=== PATIENT | male | born 1945 | race Caucasian/White ===

== ENCOUNTER → 2021-12-23 14:38 | Outpatient (BNVA) | payer OTHER, SELFPAY | PROVIDERS: Family Provider Family Medicine; PCP Family Medicine; Visit Provider Internal Medicine Pulmonary Disease | DX: J43.2 Centrilobular emphysema (principal); R91.1 Solitary pulmonary nodule; F17.210 Nicotine dependence, cigarettes, uncomplicated; Z71.6 Tobacco abuse counseling; E78.5 Hyperlipidemia, unspecified | CPT/HCPCS: 87635; 99214 ==

== ENCOUNTER 2021-12-25 07:23 | Outpatient (CLI) | payer OTHER, SELFPAY ==
--- NOTE | 2021-12-25 13:36 | PFTS_ITS ---
Date of Study:12/25/21 Date of Dictation: 12/26/2021 MECHANICS: Prebronchodilator forced vital capacity (FVC) is 4.14 L and 105%.. Prebronchodilator forced expiratory volume in one second (FEV1) is 2.93 L 100% predicted. FEV1/FVC is reduced 71.. FLOW VOLUME LOOP: normal . LUNG VOLUMES: Total lung capacity (TLC) is 6.82 L- 96% predicted. Residual volume (RV) is 2.93L 111%. DIFFUSING CAPACITY FOR CARBON MONOXIDE: Mildly reduced 66% predicted . INTERPRETATION: The prebronchodilator spirometry is consistent with mild obstruction. There is no postbronchodilator study to compare Lung volumes are normal.There is mildly reduced. Clinical correlation recommended MTDD
== END 2021-12-25 07:24 | disposition home or self-care (01) ==
LOC: RT 07:23
PROVIDERS: Family Provider Family Medicine; PCP Family Medicine; Visit Provider Internal Medicine Pulmonary Disease
DX: J44.9 Chronic obstructive pulmonary disease, unspecified (principal); R91.1 Solitary pulmonary nodule
CPT/HCPCS: 94010; 94618; 94726; 94729

== ENCOUNTER → 2022-03-26 14:23 | Outpatient (BNVA) | payer OTHER, SELFPAY | PROVIDERS: Family Provider Family Medicine; PCP Family Medicine; Visit Provider Internal Medicine Pulmonary Disease | DX: C34.90 Malignant neoplasm of unspecified part of unspecified bronchus or lung (principal); F17.210 Nicotine dependence, cigarettes, uncomplicated; J43.2 Centrilobular emphysema; R91.1 Solitary pulmonary nodule; Z71.6 Tobacco abuse counseling; E78.5 Hyperlipidemia, unspecified | CPT/HCPCS: 99214 ==

== ENCOUNTER 2022-04-02 09:25 | Oncology outpatient (recurring) (ONCR) | payer OTHER, SELFPAY ==
--- NOTE | 2022-04-02 10:26 | N.ONRAD NP_ITS ---
Radiation Oncology Consultation Patient Name: Brayan Wheeler Date of : 1945 Date of Service: 04/02/2022 Attending Physician: Ryder Valderrama M.D. Brayan Wheeler was seen in consultation this morning at the request of Shaw Gottlieb M.D. for consideration of thoracic radiotherapy in the management of a recently diagnosed non-small cell lung cancer. A screening thoracic CT scan in March 2021 revealed a left upper-lobe pleural-based nodule. Repeat imaging in July 2021 demonstrated an increase in the size of the nodule measuring 1.2 cm x 1 cm x 1 cm. A PET scan obtained confirmed the left upper lobe subpleural nodule with an SUV of 2.9. No metastatic disease was reported. He was referred to [facility] in [place], [place] for surgical management. A thoracic CT scan completed on February 13, 2022 described a 2.5 cm x 1.6 cm left upper-lobe nodule with an anterior mediastinal soft tissue lesion measuring 1 cm x 1.6 cm. A PET scan ordered on March 04, 2022 (requested from the outside hospital and independently reviewed in [facility]) reported a 2.7 cm x 1.9 cm left upper-lobe, pleural-based nodule (SUV 13.3), a 1.5 cm x 1.3 cm anterior mediastinum/prevascular node (SUV 14.7), and an aorticopulmonary lymph node measuring 1.3 cm x 0.8 cm (SUV 9.7). There was no systemic metastases. A thymectomy with laparoscopic, robotic-assisted lymph node dissection was performed by Sung Dave M.D. on March 07, 2022. The pathology report detailed a metastatic, poorly differentiated adenocarcinoma consistent with a lung primary obtained from three out of twelve anterior mediastinal lymph nodes. Extracapsular extension was identified. The pleural specimens did not identify malignancy. The patient was evaluated for definitive thoracic radiotherapy. I discussed with Mr. Wheeler the [place] [employer] Cancer Staging for lung cancer and specifically, the clinical stage IIIA (T1cN2) lung cancer corresponding to his disease. I also reviewed the National Comprehensive Cancer Network Guidelines recommending concurrent chemoradiotherapy for the management of locally advanced lung cancer established by the classic study, RTOG 9410, comparing sequential versus concurrent chemoradiotherapy that demonstrated an overall survival advantage for the concurrent chemoradiotherapy regimen. I would endorse a six week course of thoracic radiotherapy. Prior to treatment, I will order an MRI of the brain to complete staging. A computed tomographic radiotherapy planning scan with contrast in the treatment position will be acquired and co-registered to the patient's staging PET scan to identify the gross tumor volumes. The potential toxicities of thoracic radiotherapy were reviewed. The patient has verbalized understanding would like to proceed as recommended. The patient???s treatment plan was discussed with Shaw Gottlieb M.D. Signed by: Dr. Ryder Valderrama 04/15/2022 10:56:19 AM
== END 2022-04-03 23:59 | disposition home or self-care (01) ==
PROVIDERS: Family Provider Family Medicine; PCP Family Medicine; Visit Provider Radiology Radiation Oncology
DX: C34.12 Malignant neoplasm of upper lobe, left bronchus or lung (principal); C77.8 Secondary and unspecified malignant neoplasm of lymph nodes of multiple regions; F17.210 Nicotine dependence, cigarettes, uncomplicated; Z79.899 Other long term (current) drug therapy; I10 Essential (primary) hypertension
CPT/HCPCS: 99205

== ENCOUNTER → 2022-04-09 10:06 | Outpatient (BNVA) | payer OTHER, SELFPAY | PROVIDERS: PCP Family Medicine; Referring Provider Internal Medicine Hematology & Oncology; Visit Provider Surgery | DX: C34.10 Malignant neoplasm of upper lobe, unspecified bronchus or lung (principal) | CPT/HCPCS: 99203 ==

== ENCOUNTER 2022-04-15 08:13 | Day surgery (SDC) | payer OTHER, SELFPAY ==
[2022-04-14 11:47] VITALS: BMI 20.6
[2022-04-14 12:52] VITALS: BMI 20.6
[2022-04-15] VITALS (8 sets, daily range): BP systolic 146–180; BP diastolic 81–92; PULSE 59–76; RESP 15–20; TEMP 36.2–36.5; O2SAT 95–100
--- NOTE | 2022-04-15 | SCC_ITS ---
Procedure done: 1.? Placement of PowerPort via right subclavian vein 2.? Fluoroscopic guidance and interpretation for placement of catheter 26.4 seconds of fluoroscopic guidance, for a cumulative dose of 4.86 mGy, was provided to Dr. Cardozo by the radiology department. C-arm images of the chest were saved for the patient's permanent record. [facility]
--- NOTE | 2022-04-15 08:19 | SC_ITS ---
WS: [id number] C-ARM RADIOGRAPHS CHEST; 2 IMAGES HISTORY: PowerPort placement COMPARISON: None available. Intraoperative imaging during RIGHT subclavian PowerPort placement. Tip overlies the distal SVC. SC/C-arm FL for CVA [id number] IMPRESSION: Intraoperative imaging during RIGHT sided power port placement.
[2022-04-15] MEDS: sodium chloride 0.9% 1,000 ML 30 ML IV (09:00)
[2022-04-15 09:16] LABS: Basophils # 0.1 10^3/uL (0.0-0.1); Basophils % 0.8 %; Eosinophils # 0.4 10^3/uL (0.0-0.8); Eosinophils % 4.5 %; Hematocrit 51.2 % (42.0-52.0); Hemoglobin 16.3 g/dL (11.7-16.6); Lymphocytes # 1.5 10^3/uL (0.8-4.8); Mean Corpuscular HGB Conc 31.8 g/dL (30.0-36.0); Mean Corpuscular Hemoglobin 31.3 pg (28.0-34.0); Mean Corpuscular Volume 98.3 fl (80-94); Mean Platelet Volume 10.1 fL (7.4-10.4); Monocytes # 0.8 10^3/uL (0.2-0.9); Monocytes % 9.9 %; Neutrophils # 5.09 10^3/uL (1.8-7.7); Neutrophils % 65.4 %; Nucleated Red Blood Cells % 0 %; Platelet Count 283 10^3/cmm (130-400); Red Blood Count 5.21 10^6/uL (4.1-5.3); Red Cell Distribution Width 14.3 % (12.1-15.1); White Blood Count 7.8 10^3/uL (4.0-10.0)
[2022-04-15 09:35] LABS: Alanine Aminotransferase 17 U/L (0-41); Albumin Level 4.8 g/dL (3.5-5.2); Alkaline Phosphatase 90 IU/L (40-130); Anion Gap 16.6 (5-19); Aspartate Amino Transferase 16 U/L (0-40); Blood Urea Nitrogen 27 mg/dL (8-23); Calcium 9.5 mg/dL (8.5-10.5); Carbon Dioxide 26 mmol/L (22-29); Chloride 101 mmol/L (98-107); Globulin 3.5 g/dL (1.3-4.6); Glucose 96 mg/dL (65-115); Osmolality Calculated 293 mOsm/kg (285-295); Potassium 4.6 mmol/L (3.5-5.1); Sodium 139 mmol/L (136-145); Total Bilirubin 0.3 mg/dL (0.15-1.2); Total Protein 8.3 g/dL (6.6-8.7)
--- NOTE | 2022-04-15 11:30 | W.PM.OPSUD ---
Surgery/Procedure H&P Update DATE OF PROCEDURE: April 15, 2022 DATE H&P PERFORMED: 04/09/22 H&P UPDATE INFORMATION: I have reviewed H&P completed within last 30 days, I have examined patient prior to procedure and No changes to prior documentation PREOP DIAGNOSIS: Lung cancer PRIMARY INDICATION FOR PROCEDURE: The same PLANNED PROCEDURE: Operation Date: 04/15/22 10:00 Proposed Procedures p Portacath Placement 30882,C34.10(Not Applicable) - Jr Cardozo MD
[2022-04-15] MEDS: ceFAZolin 2,000 MG in sodium chloride 0.9% (plus) 50 ML 100 MG IV (11:48)
--- NOTE | 2022-04-15 11:56 | ANES.PREANE2 ---
Pre-Anesthetic Assessment Height/Weight: Height 1.8 m Weight 67.132 kg Temp Pulse Resp BP Pulse Ox 97.7 F 59 L 16 159/85 100 04/15/22 08:41 04/15/22 08:41 04/15/22 08:41 04/15/22 08:41 04/15/22 08:41 Preop Diagnosis: Lung cancer Operation Date: 04/15/22 10:00 Proposed Procedures p Portacath Placement 50641,C34.10(Not Applicable) - Jr Cardozo MD Familial anesthetic complications: None Was Beta Cathy taken within 24 hours: N/A Was Clonidine taken within 24 hours: N/A Last intake: Intake Last Liquid Date 04/14/22 Last Liquid Time 22:00 Last Solid Date 04/14/22 Last Solid Time 22:00 Social Tobacco and No alcohol Exam alert, oriented x 3 and regular rate & rhythm Airway Submandibular: within normal limits Cervical ROM: within normal limits Mallampati: Class II Dentition: false Pulmonary Chronic Obstructive Pulmonary Disease CV/HEM Hypertension Lung mass Anesthetic Plan ASA status: 3 Anesthesia: MAC Medications/Allergies Home Medications Medication Instructions Recorded Confirmed Last Taken Type ascorbate calcium (vitamin C) 500 1 g PO DAILY tab 04/02/22 04/15/22 04/14/22 History mg tablet cholecalciferol (vitamin D3) 125 125 mcg PO DAILY 04/02/22 04/15/22 04/14/22 History mcg (5,000 unit) capsule lisinopril 10 mg tablet 10 mg PO DAILY 04/02/22 04/15/22 04/14/22 History multivitamin 1 tab PO DAILY 04/02/22 04/15/22 04/14/22 History Allergies Allergy/AdvReac Type Severity Reaction Status Date / Time No Known Allergies Allergy Verified 04/15/22 08:33 [facility] Anesthesia Social History Smoking and tobacco status: current every day smoker cigarettes Packs smoked per day: 1 Years cigarettes smoked: 62 Alcohol intake: current Alcohol intake frequency: holidays/special occasions only Alcohol type: beer Data Anesthesia : 04/15/22 08:55 04/15/22 08:55 Short CBC 04/15/22 Range/Units 08:55 WBC 7.8 (4.0-10.0) 10^3/uL Hgb 16.3 (11.7-16.6) g/dL Hct 51.2 (42.0-52.0) % MCV 98.3 H (80-94) fl Plt Count 283 (130-400) 10^3/cmm Neut % (Auto) 65.4 % Neut # (Auto) 5.09 (1.8-7.7) 10^3/uL BMP 04/15/22 08:55 Sodium 139 Potassium 4.6 Chloride 101 Carbon Dioxide 26 BUN 27 H Creatinine 0.9 Glucose 96 Calcium 9.5 Liver Function 04/15/22 Range/Units 08:55 Total Bilirubin 0.3 (0.15-1.2) mg/dL AST 16 (0-40) U/L ALT 17 (0-41) U/L Alkaline Phosphatase 90 (40-130) IU/L Albumin 4.8 (3.5-5.2) g/dL Cardiac Studies: No Data to Display
[2022-04-15] MEDS: lidocaine 2% INJ 20 mL INJECTION (12:05)
[2022-04-15] MEDS: heparin, porcine 1,000 unit/mL INJ 10 mL 10000 UNIT XX (12:12)
--- NOTE | 2022-04-15 12:35 | P.OP_ITS ---
Operative Report Date of procedure: April 15, 2022 Pre-op diagnosis: Preop Diagnosis Lung cancer Post-op diagnosis: The same Procedure done: 1.? Placement of PowerPort via right subclavian vein 2.? Fluoroscopic guidance and interpretation for placement of catheter Surgeon: Jr Cardozo MD Plant Protection Superintendent: Rhiannon Thorpe Anesthesia: MAC (Gunnar Lopez) Estimated blood loss (mL): 5 Procedure: Patient was identified in the holding area and taken to the operative room and placed in supine position IV propofol was given by the anesthesia provider ,both arms were tucked,Time-out was done verifying the patient's name/date of /planned procedure and destination after the procedure, all were in agreement. SCDs confirmed to be functioning, preoperative antibiotics administered per protocol, and beta luna protocol was confirmed, appropriate positioning of the patient was done by me. Medications were reviewed to assess for anticoagulant usage. Risks and benefits and prevention of central line associated blood stream infection (CLABSI) were discussed with the patient/CPOA, and a consent was obtained. Monitors were in place and monitored throughout the procedure. All necessary supplies were available prior to start. Hand hygiene was completed prior to starting. Maximum barrier technique was utilized including a sterile gown, sterile gloves with a hat and mask. Site was was prepped with [chlorhexidine] and a full body drape was placed. 5 mL of 2% lidocaine was injected into the skin with a 25 gauge needle. Prep& drape was done under the usual sterile technique, lidocaine 2% was injected at the site of the stick, started by right sub-clavian vein stick that retrieved venous blood was obtained from the first stick, a guide wire was then threaded and under the guidance of fluoroscopy position was confirmed to be in the IVC and my interpretation, there were no PVC changes, at that point the guide wire was secured to the drapes with a hemostat and the needle was taken out, attention was then deviated towards creation of a pocket for the port were lidocaine 2% was injected using an 15 blade knife skin incision was created dissection using the Bovie to create a pocket for the Power Port to be accommodated. Hemostasis was secured, after the port being appropriately flushed it was inserted into the pocket and a tunneler was used to accommodate the catheter of the port catheter to be delivered through the incision first created at the site of the stick, at that point under fluoroscopy an estimated length was measured for the catheter and was cut at the designed level, followed by that a dilator with the sheath introduced onto the guide wire the dilator and the wire were retrieved and the catheter of the port was introduced via the sheath where it was peeled off and the catheter maintained to be in the SVC that was confirmed with fluoroscopy, and the fluoroscopy interpretation was done by me throughout the entire procedure. The port was kept in its pocket,3-0 Vicryl deep subdermal interrupted sutures, skin was then closed by 4-0 Monocryl as subcuticular closure.The port was appropriately flushed with heparin and venous blood was withdrawn without difficulty.The stick site was closed by 4-0 Monocryl and Dermabond was used foll owed by dressing.Count was correct at the end of the procedure.Patient tolerated the procedure well was taken to the recovery area. I was present for the whole entire procedure. Position of the catheter was checked with a postoperative chest x-ray and it was in good position without evidence of pneumothorax
--- NOTE | 2022-04-15 12:36 | XRR_ITS ---
PROCEDURE INFORMATION: Exam: XR Chest Exam date and time: 04/15/2022 12:58 PM Age: 76 years old Clinical indication: Other vascular access device placement or adjustment; Port; Additional info: Status post right subclavian vein powerport placement TECHNIQUE: Imaging protocol: Radiologic exam of the chest. Views: 1 view. COMPARISON: CT chest con [id number] 02/13/2022 12:43 PM FINDINGS: Tubes, catheters and devices: [id number]-[id number], new since the CT scan. Lungs: Possible left upper lobe peripheral 14 mm mass. Pleural spaces: Unremarkable. No pleural effusion. No pneumothorax. Heart/Mediastinum: Unremarkable. No cardiomegaly. Bones/joints: Unremarkable. Healed left rib fractures. XR/XR chest 1V portable [id number] IMPRESSION: No pneumothorax status post [id number]. Questionable peripheral left upper lobe mass.
--- NOTE | 2022-04-15 16:12 | ANE.PACU2 ---
Inpatient post-anesthesia follow up: Airway intact: Yes Vital signs: Temperature 97.7 F Pulse Rate 60 Respiratory Rate 18 Blood Pressure 180/87 Pulse Oximetry 99 Oxygen Delivery Me thod Room Air Oxygen Flow Rate Fraction of Inspir ed Oxygen Hydration adequate: Yes Nausea and vomiting: No Pain level: 2 Mental status: Baseline
== END 2022-04-15 13:52 | disposition home or self-care (01) ==
PROVIDERS: Radiology Radiation Oncology; PCP Family Medicine; Visit Provider Surgery
PROC: (CPT 36561; principal; 2022-04-15 09:50)
DX: C34.10 Malignant neoplasm of upper lobe, unspecified bronchus or lung (principal); J44.9 Chronic obstructive pulmonary disease, unspecified; I10 Essential (primary) hypertension; F17.210 Nicotine dependence, cigarettes, uncomplicated
CPT/HCPCS: 36561; 36415; 71045; 76000; 77001; 80053; 85025; C1788; J1644; J2704; J3490; J7030

== ENCOUNTER → 2022-04-21 08:20 | Outpatient (BNVA) | payer OTHER, SELFPAY | PROVIDERS: PCP Family Medicine; Visit Provider Nurse Practitioner Family | DX: Z51.0 Encounter for antineoplastic radiation therapy (principal); C34.10 Malignant neoplasm of upper lobe, unspecified bronchus or lung; R91.1 Solitary pulmonary nodule | CPT/HCPCS: 77386 ==

== ENCOUNTER → 2022-04-28 07:46 | Outpatient (BNVA) | payer OTHER, SELFPAY | PROVIDERS: PCP Family Medicine; Visit Provider Internal Medicine Hematology & Oncology | DX: Z51.0 Encounter for antineoplastic radiation therapy (principal); C34.12 Malignant neoplasm of upper lobe, left bronchus or lung; C77.8 Secondary and unspecified malignant neoplasm of lymph nodes of multiple regions; F17.210 Nicotine dependence, cigarettes, uncomplicated; Z79.899 Other long term (current) drug therapy | CPT/HCPCS: 77386; 99214 ==

== ENCOUNTER 2022-05-02 11:01 | Oncology outpatient (recurring) (ONCR) | payer OTHER, SELFPAY ==
--- NOTE | 2022-04-04 11:29 | MR_ITS ---
WS: [id number] MRI HEAD WITH CONTRAST TECHNIQUE: Sagittal T1, T2 axial, T2 axial FLAIR, axial susceptibility weighted imaging, axial diffus ion weighted images, and coronal T2 images were obtained. Pre and post-T1 axial and post T1 coronal i mages. ADC and FSPGR images. CLINICAL INFORMATION: LUNG CANCER STAGING COMPARISON: PET/CT March 01, 2022 FINDINGS: No evidence of restricted diffusion to suggest to suggest acute ischemia. Ventricular system and basa l cisterns are patent. Moderate small vessel changes. Moderate parenchymal volume loss. Small chronic cortical infarct in the LEFT frontal lobe with encephalomalacia and gliosis. Normal posterior fossa. Normal vascular flow voids at the skull base. No extra-axial fluid collections. No evidence of mass or mass effect. Chronic lacunar infarcts in the RIGHT periventricular white matter. Normal posterior nasopharynx. Mild mucosal thickening maxillary sinuses. Mastoid air cells well aerated. No hemosiderin on susceptibly weighted images. Normal optic chiasm and pituitary infundibulum. Modera te symmetric atrophy temporal lobes and hippocampal formations. Normal optic chiasm and pituitary inf undibulum. Normal cavernous sinuses and Meckel's cave. No abnormal gadolinium enhancement. No evidence of enhancing intracranial metastatic disease. Normal visualized dural venous sinuses. MR/MR head wo/w con [id number] IMPRESSION: 1. No evidence of enhancing intracranial metastatic disease. 2. No evidence of intracranial mass or mass effect. 3. No restricted diffusion to suggest acute ischemia. 4. Moderate small vessel changes with moderate parenchymal volume loss. 5. Mild mucosal thickening in the maxillary sinuses. 6. No other significant findings.
[2022-04-04] MEDS: gadobenate dimeglumine 20 mL vial IV (15:16)
--- NOTE | 2022-04-16 | CT_ITS ---
Radiation Therapy Planning CT images; total exam DLP: 371.08 mGy-cm MTDD
[2022-04-21 08:57] LABS: Basophils # 0.1 10^3/uL (0.0-0.1); Basophils % 0.6 %; Eosinophils # 0.3 10^3/uL (0.0-0.8); Eosinophils % 3.2 %; Hematocrit 45.3 % (42.0-52.0); Lymphocytes # 1.5 10^3/uL (0.8-4.8); Lymphocytes % 17.9 %; Mean Corpuscular HGB Conc 33.1 g/dL (30.0-36.0); Mean Corpuscular Hemoglobin 32.2 pg (28.0-34.0); Mean Corpuscular Volume 97.2 fl (80-94); Monocytes # 0.9 10^3/uL (0.2-0.9); Monocytes % 10.5 %; Neutrophils # 5.67 10^3/uL (1.8-7.7); Neutrophils % 67.4 %; Nucleated Red Blood Cells % 0 %; Platelet Count 281 10^3/cmm (130-400); Red Blood Count 4.66 10^6/uL (4.1-5.3); Red Cell Distribution Width 14.3 % (12.1-15.1); White Blood Count 8.4 10^3/uL (4.0-10.0)
[2022-04-21 09:18] LABS: Alanine Aminotransferase 15 U/L (0-41); Albumin Level 4.2 g/dL (3.5-5.2); Alkaline Phosphatase 79 IU/L (40-130); Anion Gap 11.1 (5-19); Aspartate Amino Transferase 14 U/L (0-40); Blood Urea Nitrogen 22 mg/dL (8-23); Calcium 9.5 mg/dL (8.5-10.5); Carbon Dioxide 28 mmol/L (22-29); Chloride 99 mmol/L (98-107); Globulin 2.7 g/dL (1.3-4.6); Glucose 105 mg/dL (65-115); Osmolality Calculated 280 mOsm/kg (285-295); Potassium 5.1 mmol/L (3.5-5.1); Sodium 133 mmol/L (136-145); Total Bilirubin 0.5 mg/dL (0.15-1.2); Total Protein 6.9 g/dL (6.6-8.7)
[2022-04-21] MEDS: sodium chloride 0.9% 250 ML 100 ML IV (11:34)
[2022-04-21] MEDS: acetaminophen 325 mg Tablet 650 MG PO (11:34)
[2022-04-21] MEDS: palonosetron 0.25 mg/5 mL SDV IVP (11:35)
[2022-04-21] MEDS: famotidine 20 mg/2 mL INJ IVP (11:37)
[2022-04-21] MEDS: diphenhydrAMINE 50 mg/mL SDV 1mL 25 MG IVP (11:38)
[2022-04-21] MEDS: dexamethasone 20 MG in sodium chloride 0.9% 50 ML 188 MG IV (11:43)
[2022-04-21] MEDS: CARBOplatin 190 MG in sodium chloride 0.9% 500 ML 519 MG IV (13:33)
[2022-04-21 14:47] VITALS: BP 145/76; PULSE 65; RESP 16; TEMP 36.8; O2SAT 92
--- NOTE | 2022-04-23 10:13 | US_ITS ---
WS: [id number] ULTRASOUND RIGHT BREAST, limited HISTORY: RIGHT BREAST NODULE W/NIPPLE RETRACTION COMPARISON: PET/CT 03/01/2022 TECHNIQUE: 2-D and Doppler. There is a hypoechoic mass just posterior to the nipple with irregular borders measuring 2.3 x 1.4 x 1.8 cm. Hypoechoic mass with increased vascularity and changes suspicious for gynecomastia. This lesi on was also positive on a recent PET/CT but thought to be related to gynecomastia as indicated within the body of the report. US/US breast RT limited* [id number] IMPRESSION: BI-RADS: 3-Probably Benign FOLLOW-UP: See Report 1. Hypoechoic mass posterior to the nipple is probably gynecomastia. FDG positi ve on recent PET/CT. Gynecomastia may be FDG positive. 2. Clinically if this does not correlate with gynecomastia ultrasound-guided bi opsy can be obtained. Also if this continues to increase in size ultrasound-michael ded biopsy can be obtained.
--- NOTE | 2022-04-23 11:42 | ONCRAD TMN_ITS ---
Radiation Oncology Weekly Treatment Management Patient: Liam Schmidt MR#: [id number] : 1945 Attending Physician: Dr. Basim John Date of Service: 04/23/2022 Referring Physician(s) : Diagnosis: C34.10 - Malignant neoplasm of upper lobe, unspecified bronchus or lung, Diagnosed 03/07/2022 (Active) Stage IIIA, T1c, N2, M0 Radiotherapy to date: Course: Lung 2021,Treatment Site: Lung Ca,Ref. ID: [id number],Energy: 6X,Dose/Fx (cGy): 200, #Fx: , Dose Correction (cGy): 0, Total Dose (cGy): 600, Start Date: 04/21/2022, , Elapsed Days: 2 Reason for visit: The patient is being seen today as part of their regularly scheduled weekly on treatment visits to assess for acute toxicities from radiotherapy. Review of Systems: Feels well. Tolerated his first course of chemotherapy without any troublesome side effects. No problems with the first 3 radiation treatments. His appetite is good. He has no dysphagia. No complaints regarding his breathing. No cough, hemoptysis, or sputum production. No new or unusual pain. No questions about the treatment process. He had an ultrasound of the right breast area today because of a lump. It was done a short time ago and we do not have results yet. If there is a problem that requires surgical evaluation, we will send him to the surgeon that put in his port. Vital Signs: Performed on 04/23/2022 11:19 AM BMI - 20.251 kg/m2, Height - 71 in, Weight - 145.2 lbs, Temperature - 96.7 f, Pulse - 73 /min, Respiration - 16 /min, O2 Sat - 100 %, Pain - 0, Fatigue - 1 and BP - 128/ 78 mm(hg). Physical Exam: Alert, oriented, no acute distress. Breathing is quiet and unlabored. Normal gait without assistance. Imaging: Radiation therapy imaging related to accurate target localization (i.e. KV, MV and CBCT) was reviewed. Appropriate changes, if any, were made to ensure treatment accuracy. Plan: Continue chemo RT as planned. We will let him know the results of his ultrasound. Signed by: Dr. Enzo John 04/23/2022 11:42:18 AM
--- NOTE | 2022-04-25 12:06 | ONCRAD TMN_ITS ---
Radiation Oncology Weekly Treatment Management Patient: Liam Schmidt> MR#: [id number] : 1945> Attending Physician: Dr. Enzo John Date of Service: 04/25/2022 Referring Physician(s) : Diagnosis: C34.10 - Malignant neoplasm of upper lobe, unspecified bronchus or lung, Diagnosed 03/07/2022 (Active) Stage IIIA, T1c, N2, M0 Radiotherapy to date: Course: Lung 2021, Treatment Site: Lung Ca, Ref. ID: [id number], Energy: 6X, Dose/Fx (cGy): 200, #Fx: , Dose Correction (cGy): 0, Total Dose (cGy): 1,000, Start Date: 04/21/2022, End Date: 04/25/2022, Elapsed Days: 4 Reason for visit: The patient is being seen today as part of their regularly scheduled weekly on treatment visits to assess for acute toxicities from radiotherapy. Mr. Wheeler had an ultrasound of the right breast because of the subareolar nodule that he recently palpated. The mass is asymptomatic. It did show up on PET/CT and was thought to be related to gynecomastia. The ultrasound shows a hypoechoic echoic mass posterior to the nipple with irregular borders measuring 2.3 x 1.4 x 1.8 cm. The mass has increased vascularity and the changes are suspicious for gynecomastia. Physical Exam: The left nipple, areola, and surrounding breast tissue are completely normal to palpation. No left axillary or supraclavicular lymphadenopathy. The right breast has slight elevation of its contour. No abnormality of the nipple or areola detected. Surrounding skin appears normal. Beneath the nipple there is an approximately 2 cm mass that is palpable. It is smooth, mobile, and nontender. On physical examination there is nothing suspicious about the mass. No right axillary or supraclavicular lymphadenopathy. Imaging: Radiation therapy imaging related to accurate target localization (i.e. KV, MV and CBCT) was reviewed. Appropriate changes, if any, were made to ensure treatment accuracy. Plan: I discussed with and Mrs. Smalls that a surgical consultation could be arranged. However, he and I agree that observation is appropriate. The area is easily evaluated and any change will be apparent. I told him not to palpate the area more than once every 2 weeks or that it is likely to get sore and possibly even swell. Signed by: Dr. Enzo John 04/25/2022 12:04:52 PM
[2022-04-28 08:22] LABS: Basophils % 0.5 %; Eosinophils # 0.2 10^3/uL (0.0-0.8); Hematocrit 45.6 % (42.0-52.0); Hemoglobin 14.9 g/dL (11.7-16.6); Lymphocytes # 0.8 10^3/uL (0.8-4.8); Lymphocytes % 12.7 %; Mean Corpuscular HGB Conc 32.7 g/dL (30.0-36.0); Mean Corpuscular Hemoglobin 31.5 pg (28.0-34.0); Mean Corpuscular Volume 96.4 fl (80-94); Monocytes # 0.5 10^3/uL (0.2-0.9); Monocytes % 8.5 %; Neutrophils # 4.42 10^3/uL (1.8-7.7); Neutrophils % 74.8 %; Nucleated Red Blood Cells % 0 %; Platelet Count 283 10^3/cmm (130-400); Red Blood Count 4.73 10^6/uL (4.1-5.3); Red Cell Distribution Width 14.1 % (12.1-15.1); White Blood Count 5.9 10^3/uL (4.0-10.0)
[2022-04-28 09:20] LABS: Alanine Aminotransferase 11 U/L (0-41); Albumin Level 4.4 g/dL (3.5-5.2); Alkaline Phosphatase 64 IU/L (40-130); Aspartate Amino Transferase 14 U/L (0-40); Blood Urea Nitrogen 19 mg/dL (8-23); Calcium 9.5 mg/dL (8.5-10.5); Carbon Dioxide 27 mmol/L (22-29); Chloride 98 mmol/L (98-107); Globulin 2.5 g/dL (1.3-4.6); Glucose 131 mg/dL (65-115); Osmolality Calculated 282 mOsm/kg (285-295); Sodium 134 mmol/L (136-145); Total Bilirubin 0.9 mg/dL (0.15-1.2); Total Protein 6.9 g/dL (6.6-8.7)
[2022-04-28] MEDS: sodium chloride 0.9% 250 ML 100 ML IV (10:51)
[2022-04-28] MEDS: acetaminophen 325 mg Tablet 650 MG PO (10:52)
[2022-04-28] MEDS: palonosetron 0.25 mg/5 mL SDV IVP (10:52)
[2022-04-28] MEDS: famotidine 20 mg/2 mL INJ IVP (10:53)
[2022-04-28] MEDS: diphenhydrAMINE 50 mg/mL SDV 1mL 25 MG IVP (10:56)
[2022-04-28] MEDS: dexamethasone 20 MG in sodium chloride 0.9% 50 ML 188 MG IV (11:42)
[2022-04-28] MEDS: CARBOplatin 210 MG in sodium chloride 0.9% 500 ML 521 MG IV (13:11)
[2022-04-28 14:46] VITALS: BP 195/90; PULSE 73; RESP 16; TEMP 36.6; O2SAT 97
[2022-04-29] MEDS: sodium chloride 0.9% 250 ML IV (13:47)
[2022-04-29] MEDS: lisinopril 20 mg Tablet PO (13:48)
[2022-04-29] MEDS: OLANZapine 5 mg ODT PO (13:48)
[2022-04-29] MEDS: dexamethasone 10 mg/mL INJ IVP (13:49)
[2022-04-29] MEDS: ondansetron 2 mg/ML SDV 2 mL 8 MG IVP (13:51)
[2022-04-29 14:05] VITALS: BP 206/103; PULSE 78; RESP 16; TEMP 36.3; O2SAT 97
[2022-04-29 15:15] VITALS: BP 203/90; PULSE 81; RESP 16; TEMP 36.5; O2SAT 96
--- NOTE | 2022-04-29 15:28 | PC.NURSE ---
Per Dr. Gottlieb, patient is to report to ER. Patient refuses, states he will go home and monitor BP and see how he feels. Advised patient as to Dr. Gottlieb instructions and told him to contact office if there was anything else we could do to assist.
--- NOTE | 2022-04-29 15:52 | ONCRAD TMN_ITS ---
Radiation Oncology Weekly Treatment Management Patient: Liam Schmidt MR#: [id number] : 1945 Attending Physician: Dr. Enzo John Date of Service: 04/29/2022 Referring Physician(s) : Diagnosis: C34.10 - Malignant neoplasm of upper lobe, unspecified bronchus or lung, Diagnosed 03/07/2022 (Active) Stage IIIA, T1c, N2, M0 Radiotherapy to date: Course: Lung 2021, Treatment Site: Lung Ca, Ref. ID: [id number], Energy: 6X, Dose/Fx (cGy): 200, #Fx: , Dose Correction (cGy): 0, Total Dose (cGy): 1,400, Start Date: 04/21/2022, Elapsed Days: 8 Reason for visit: The patient is being seen today as part of their regularly scheduled weekly on treatment visits to assess for acute toxicities from radiotherapy. Review of Systems: No problems with radiation. He had chemotherapy yesterday and had nausea and vomiting afterward. That has cleared but his blood pressure has been elevated. He was sent to the chemotherapy unit for further evaluation and that is where I saw him. He had no complaints and was feeling fine when I saw him. Vital Signs: Performed on 04/29/2022 1:08 PM BMI - 19.917 kg/m2, Height - 71 in, Weight - 142.8 lbs, Temperature - 97.7 f, Pulse - 81 /min, Respiration - 16 /min, O2 Sat - 96 % and BP - 203/ 90 mm(hg)(high/). Physical Exam: Neck supple without masses or lymphadenopathy. Lungs clear to percussion. On auscultation no rales rhonchi or wheezes. Heart rhythm was for the most part regular but he did have occasional irregular beats. He also had an occasional S4. No murmur. Because his blood pressure was remaining elevated, Dr. Gottlieb recommended that he go to the emergency room. The patient did not indicate he would go to the emergency room. The last time we checked, he had not checked into the emergency room. Imaging: Radiation therapy imaging related to accurate target localization (i.e. KV, MV and CBCT) was reviewed. Appropriate changes, if any, were made to ensure treatment accuracy. Plan: Continue RT per plan. Check blood pressure. Signed by: Dr. Enzo John 04/29/2022 3:50:18 PM
== END 2022-05-04 23:59 | disposition home or self-care (01) ==
PROVIDERS: Internal Medicine Medical Oncology; Nurse Practitioner Family; PCP Family Medicine; Visit Provider Specialist
DX: Z51.0 Encounter for antineoplastic radiation therapy (principal); C34.10 Malignant neoplasm of upper lobe, unspecified bronchus or lung
CPT/HCPCS: 70553; 76642; 77014; 77300; 77301; 77334; 77336; 77338; 77386; 77470; 80053; 85025; 96365; 96367; 96375; 96413; 96415; 96417; 99214; 99215; J1100; J1200; J2405; J2469; J3490; J7030; J7040; J7050; J9045; J9267; Q9967

== ENCOUNTER → 2022-05-14 10:23 | Outpatient (BNVA) | payer OTHER, SELFPAY | PROVIDERS: PCP Family Medicine; Visit Provider Surgery | DX: Z09 Encounter for follow-up examination after completed treatment for conditions other than malignant neoplasm (principal) | CPT/HCPCS: 99024 ==

== ENCOUNTER 2022-05-30 10:47 | Oncology outpatient (recurring) (ONCR) | payer OTHER, SELFPAY ==
[2022-05-05 08:38] LABS: Basophils % 0.4 %; Eosinophils # 0.1 10^3/uL (0.0-0.8); Eosinophils % 2.8 %; Hematocrit 41.4 % (42.0-52.0); Hemoglobin 13.6 g/dL (11.7-16.6); Lymphocytes # 0.5 10^3/uL (0.8-4.8); Lymphocytes % 10.6 %; Mean Corpuscular HGB Conc 32.9 g/dL (30.0-36.0); Mean Corpuscular Hemoglobin 31.6 pg (28.0-34.0); Mean Corpuscular Volume 96.3 fl (80-94); Mean Platelet Volume 10.2 fL (7.4-10.4); Monocytes # 0.4 10^3/uL (0.2-0.9); Monocytes % 9.3 %; Neutrophils % 76.5 %; Nucleated Red Blood Cells % 0 %; Platelet Count 206 10^3/cmm (130-400); Red Cell Distribution Width 13.9 % (12.1-15.1); White Blood Count 4.7 10^3/uL (4.0-10.0)
[2022-05-05 09:07] LABS: Alanine Aminotransferase 11 U/L (0-41); Albumin Level 3.8 g/dL (3.5-5.2); Alkaline Phosphatase 65 IU/L (40-130); Anion Gap 12.5 (5-19); Aspartate Amino Transferase 10 U/L (0-40); Blood Urea Nitrogen 24 mg/dL (8-23); Carbon Dioxide 26 mmol/L (22-29); Chloride 104 mmol/L (98-107); Globulin 2.7 g/dL (1.3-4.6); Glucose 108 mg/dL (65-115); Osmolality Calculated 289 mOsm/kg (285-295); Potassium 5.5 mmol/L (3.5-5.1); Sodium 137 mmol/L (136-145); Total Bilirubin 0.8 mg/dL (0.15-1.2); Total Protein 6.5 g/dL (6.6-8.7)
[2022-05-05] MEDS: sodium chloride 0.9% 250 ML 100 ML IV (10:54)
[2022-05-05] MEDS: palonosetron 0.25 mg/5 mL SDV IVP (10:55)
[2022-05-05] MEDS: acetaminophen 325 mg Tablet 650 MG PO (10:55)
[2022-05-05] MEDS: famotidine 20 mg/2 mL INJ IVP (10:57)
[2022-05-05] MEDS: diphenhydrAMINE 50 mg/mL SDV 1mL 25 MG IVP (11:00)
[2022-05-05] MEDS: dexamethasone 20 MG in sodium chloride 0.9% 50 ML 188 MG IV (11:00)
[2022-05-05] MEDS: CARBOplatin 210 MG in sodium chloride 0.9% 500 ML 521 MG IV (12:45)
[2022-05-05 13:59] VITALS: BP 155/88; PULSE 78; RESP 16; TEMP 36.8; O2SAT 98
--- NOTE | 2022-05-06 13:29 | ONCRAD TMN_ITS ---
Radiation Oncology Treatment Management Note Patient Name: Brayan Wheeler Date of : 1945 Date of Service: 05/06/2022 Attending Physician: Ryder Valderrama M.D. Brayan Wheeler is a 77 year-old white male recently diagnosed with a clinical stage IIIA (T1cN2) non-small cell lung cancer. A screening thoracic CT scan in March 2021 revealed a left upper-lobe pleural-based nodule. Repeat imaging in July 2021 demonstrated an increase in the size of the nodule measuring 1.2 cm x 1 cm x 1 cm. A PET scan obtained confirmed the left upper lobe subpleural nodule with an SUV of 2.9. No metastatic disease was reported. He was referred to [facility] in [place], [place] for surgical management. A thoracic CT scan completed on February 13, 2022 described a 2.5 cm x 1.6 cm left upper-lobe nodule with an anterior mediastinal soft tissue lesion measuring 1 cm x 1.6 cm. A PET scan ordered on March 04, 2022 reported a 2.7 cm x 1.9 cm left upper-lobe, pleural-based nodule (SUV 13.3), a 1.5 cm x 1.3 cm anterior mediastinum/prevascular node (SUV 14.7), and an aorticopulmonary lymph node measuring 1.3 cm x 0.8 cm (SUV 9.7). There was no systemic metastases. A thymectomy with laparoscopic, robotic-assisted lymph node dissection was performed by Sung Dave M.D. on March 07, 2022. The pathology report detailed a metastatic, poorly differentiated adenocarcinoma consistent with a lung primary obtained from three out of twelve anterior mediastinal lymph nodes. Extracapsular extension was identified. The pleural specimens did not identify malignancy. The patient has received 22 Gy of a prescribed 60 Grover with an intensity modulated radiotherapy plan utilizing a step and shoot treatment technique. He has been prescribed Carboplatin (AUC 2) and paclitaxel (50 mg/m???) weekly during therapy. Upon review of systems, he denied pulmonary symptoms. On physical examination, the patient weighed 145 lbs. His temperature was 98 ???F and the blood pressure was 133/63 mmHg. The pulse was 75 bpm and his respiratory rate was 17. Oxygen saturation while breathing room air was 97%. There was no erythema within the treatment xiong. Continue thoracic radiotherapy as prescribed. Signed by: Dr. Ryder Valderrama 05/06/2022 1:28:11 PM
[2022-05-12 09:01] LABS: Basophils % 0.6 %; Eosinophils # 0.1 10^3/uL (0.0-0.8); Eosinophils % 1.7 %; Hematocrit 38.4 % (42.0-52.0); Hemoglobin 12.9 g/dL (11.7-16.6); Lymphocytes # 0.4 10^3/uL (0.8-4.8); Lymphocytes % 8.2 %; Mean Corpuscular HGB Conc 33.6 g/dL (30.0-36.0); Mean Corpuscular Hemoglobin 32.4 pg (28.0-34.0); Mean Corpuscular Volume 96.5 fl (80-94); Mean Platelet Volume 10.7 fL (7.4-10.4); Monocytes # 0.5 10^3/uL (0.2-0.9); Monocytes % 11.4 %; Neutrophils # 3.68 10^3/uL (1.8-7.7); Neutrophils % 77.7 %; Nucleated Red Blood Cells % 0 %; Platelet Count 163 10^3/cmm (130-400); Red Blood Count 3.98 10^6/uL (4.1-5.3); Red Cell Distribution Width 14.3 % (12.1-15.1); White Blood Count 4.7 10^3/uL (4.0-10.0)
[2022-05-12 09:50] LABS: Alanine Aminotransferase 11 U/L (0-41); Albumin Level 3.8 g/dL (3.5-5.2); Alkaline Phosphatase 71 IU/L (40-130); Anion Gap 13.8 (5-19); Aspartate Amino Transferase 12 U/L (0-40); Blood Urea Nitrogen 24 mg/dL (8-23); Calcium 9.2 mg/dL (8.5-10.5); Carbon Dioxide 26 mmol/L (22-29); Chloride 101 mmol/L (98-107); Globulin 2.6 g/dL (1.3-4.6); Glucose 106 mg/dL (65-115); Osmolality Calculated 286 mOsm/kg (285-295); Potassium 4.8 mmol/L (3.5-5.1); Sodium 136 mmol/L (136-145); Total Bilirubin 0.6 mg/dL (0.15-1.2); Total Protein 6.4 g/dL (6.6-8.7)
[2022-05-12] MEDS: sodium chloride 0.9% 250 ML 75 ML IV (11:16)
[2022-05-12] MEDS: acetaminophen 325 mg Tablet 650 MG PO (11:17)
[2022-05-12] MEDS: diphenhydrAMINE 50 mg/mL SDV 1mL 25 MG IVP (11:18)
[2022-05-12] MEDS: famotidine 20 mg/2 mL INJ IVP (11:22)
[2022-05-12] MEDS: dexamethasone 20 MG in sodium chloride 0.9% 50 ML 188 MG IV (11:25)
[2022-05-12] MEDS: PACLitaxeL 90 MG in sodium chloride 0.9%(non-DEHP) 250 ML 265 MG IV (11:50)
[2022-05-12] MEDS: CARBOplatin 210 MG in sodium chloride 0.9% 500 ML 521 MG IV (13:01)
[2022-05-12 14:24] VITALS: BP 156/86; PULSE 68; RESP 18; TEMP 36.4; O2SAT 98
--- NOTE | 2022-05-13 13:30 | ONCRAD TMN_ITS ---
Radiation Oncology Treatment Management Note Patient Name: Brayan Wheeler Date of : 1945 Date of Service: 05/13/2022 Attending Physician: Ryder Valderrama M.D. Brayan Wheeler is a 77 year-old white male recently diagnosed with a clinical stage IIIA (T1cN2) non-small cell lung cancer. A screening thoracic CT scan in March 2021 revealed a left upper-lobe pleural-based nodule. Repeat imaging in July 2021 demonstrated an increase in the size of the nodule measuring 1.2 cm x 1 cm x 1 cm. A PET scan obtained confirmed the left upper lobe subpleural nodule with an SUV of 2.9. No metastatic disease was reported. He was referred to [facility] in [place], [place] for surgical management. A thoracic CT scan completed on February 13, 2022 described a 2.5 cm x 1.6 cm left upper-lobe nodule with an anterior mediastinal soft tissue lesion measuring 1 cm x 1.6 cm. A PET scan ordered on March 04, 2022 reported a 2.7 cm x 1.9 cm left upper-lobe, pleural-based nodule (SUV 13.3), a 1.5 cm x 1.3 cm anterior mediastinum/prevascular node (SUV 14.7), and an aorticopulmonary lymph node measuring 1.3 cm x 0.8 cm (SUV 9.7). There was no systemic metastases. A thymectomy with laparoscopic, robotic-assisted lymph node dissection was performed by Sung Dave M.D. on March 07, 2022. The pathology report detailed a metastatic, poorly differentiated adenocarcinoma consistent with a lung primary obtained from three out of twelve anterior mediastinal lymph nodes. Extracapsular extension was identified. The pleural specimens did not identify malignancy. The patient has received 34 Gy of a prescribed 60 Grover with an intensity modulated radiotherapy plan utilizing a step and shoot treatment technique. He has been prescribed Carboplatin (AUC 2) and paclitaxel (50 mg/m???) weekly during therapy. Upon review of systems, he denied pulmonary symptoms. On physical examination, the patient weighed 148 lbs. His temperature was 97.4 ???F and the blood pressure was 136/66 mmHg. The pulse was 70 bpm and his respiratory rate was 16. Oxygen saturation while breathing room air was 99%. There was no erythema within the treatment xiong. Bilateral decreased breath sounds were auscultated. Continue thoracic radiotherapy as planned. Signed by: Dr. Ryder Valderrama 05/13/2022 1:28:27 PM
[2022-05-19 08:42] LABS: Basophils % 0.6 %; Eosinophils # 0.1 10^3/uL (0.0-0.8); Hematocrit 39.3 % (42.0-52.0); Lymphocytes # 0.4 10^3/uL (0.8-4.8); Lymphocytes % 10.3 %; Mean Corpuscular HGB Conc 33.1 g/dL (30.0-36.0); Mean Corpuscular Volume 96.8 fl (80-94); Mean Platelet Volume 10.4 fL (7.4-10.4); Monocytes # 0.3 10^3/uL (0.2-0.9); Monocytes % 7.5 %; Neutrophils # 2.76 10^3/uL (1.8-7.7); Neutrophils % 79.3 %; Nucleated Red Blood Cells % 0 %; Platelet Count 87 10^3/cmm (130-400); Red Blood Count 4.06 10^6/uL (4.1-5.3); Red Cell Distribution Width 14.4 % (12.1-15.1); White Blood Count 3.5 10^3/uL (4.0-10.0)
[2022-05-19 09:16] LABS: Alanine Aminotransferase 10 U/L (0-41); Alkaline Phosphatase 61 IU/L (40-130); Anion Gap 10.9 (5-19); Aspartate Amino Transferase 12 U/L (0-40); Blood Urea Nitrogen 14 mg/dL (8-23); Carbon Dioxide 28 mmol/L (22-29); Chloride 101 mmol/L (98-107); Creatinine Clr Calc Pharmacy 75.1317; Globulin 2.3 g/dL (1.3-4.6); Glucose 97 mg/dL (65-115); Osmolality Calculated 280 mOsm/kg (285-295); Potassium 4.9 mmol/L (3.5-5.1); Sodium 135 mmol/L (136-145); Total Bilirubin 0.8 mg/dL (0.15-1.2); Total Protein 6.3 g/dL (6.6-8.7)
[2022-05-19] MEDS: sodium chloride 0.9% 250 ML 75 ML IV (11:11)
[2022-05-19] MEDS: dexamethasone 20 MG in sodium chloride 0.9% 50 ML 188 MG IV (11:16)
[2022-05-19] MEDS: famotidine 20 mg/2 mL INJ IVP (11:48)
[2022-05-19] MEDS: diphenhydrAMINE 50 mg/mL SDV 1mL 25 MG IVP (11:48)
[2022-05-19] MEDS: palonosetron 0.25 mg/5 mL SDV IVP (11:50)
[2022-05-19] MEDS: acetaminophen 325 mg Tablet 650 MG PO (11:52)
[2022-05-19] MEDS: PACLitaxeL 90 MG in sodium chloride 0.9%(non-DEHP) 250 ML 265 MG IV (11:59)
[2022-05-19] MEDS: CARBOplatin 170 MG in sodium chloride 0.9% 500 ML 517 MG IV (12:39)
[2022-05-19 13:50] VITALS: BP 124/74; PULSE 74; RESP 18; TEMP 36.1; O2SAT 98
--- NOTE | 2022-05-20 13:40 | ONCRAD TMN_ITS ---
Radiation Oncology Treatment Management Note Patient Name: Brayan Wheeler Date of : 1945 Date of Service: 05/20/2022 Attending Physician: Ryder Valderrama M.D. Brayan Wheeler is a 77 year-old white male recently diagnosed with a clinical stage IIIA (T1cN2) non-small cell lung cancer. A screening thoracic CT scan in March 2021 revealed a left upper-lobe pleural-based nodule. Repeat imaging in July 2021 demonstrated an increase in the size of the nodule measuring 1.2 cm x 1 cm x 1 cm. A PET scan obtained confirmed the left upper lobe subpleural nodule with an SUV of 2.9. No metastatic disease was reported. He was referred to [facility] in [place], [place] for surgical management. A thoracic CT scan completed on February 13, 2022 described a 2.5 cm x 1.6 cm left upper-lobe nodule with an anterior mediastinal soft tissue lesion measuring 1 cm x 1.6 cm. A PET scan ordered on March 04, 2022 reported a 2.7 cm x 1.9 cm left upper-lobe, pleural-based nodule (SUV 13.3), a 1.5 cm x 1.3 cm anterior mediastinum/prevascular node (SUV 14.7), and an aorticopulmonary lymph node measuring 1.3 cm x 0.8 cm (SUV 9.7). There was no systemic metastases. A thymectomy with laparoscopic, robotic-assisted lymph node dissection was performed by Sung Dave M.D. on March 07, 2022. The pathology report detailed a metastatic, poorly differentiated adenocarcinoma consistent with a lung primary obtained from three out of twelve anterior mediastinal lymph nodes. Extracapsular extension was identified. The pleural specimens did not identify malignancy. The patient has received 44 Gy of a prescribed 60 Grover with an intensity modulated radiotherapy plan utilizing a step and shoot treatment technique. He has been prescribed Carboplatin (AUC 2) and paclitaxel (50 mg/m???) weekly during therapy. Upon review of systems, he denied pulmonary symptoms. On physical examination, the patient weighed 146 lbs. His temperature was 97.9 ???F and the blood pressure was 145/65 mmHg. The pulse was 60 bpm and his respiratory rate was 18. Oxygen saturation while breathing room air was 98%. There was no erythema within the treatment xiong. Bilateral decreased breath sounds were present. Continue thoracic radiotherapy as prescribed. Signed by: Dr. Ryder Valderrama 05/20/2022 1:38:51 PM
[2022-05-26 10:56] LABS: Basophils % 0.2 %; Hematocrit 42.5 % (42.0-52.0); Hemoglobin 14.9 g/dL (11.7-16.6); Lymphocytes # 0.2 10^3/uL (0.8-4.8); Lymphocytes % 4.6 %; Mean Corpuscular HGB Conc 35.1 g/dL (30.0-36.0); Mean Corpuscular Hemoglobin 32.5 pg (28.0-34.0); Mean Corpuscular Volume 92.6 fl (80-94); Mean Platelet Volume 10.7 fL (7.4-10.4); Monocytes # 0.3 10^3/uL (0.2-0.9); Monocytes % 6.1 %; Neutrophils # 4.22 10^3/uL (1.8-7.7); Neutrophils % 88.3 %; Nucleated Red Blood Cells % 0 %; Platelet Count 123 10^3/cmm (130-400); Red Blood Count 4.59 10^6/uL (4.1-5.3); Red Cell Distribution Width 14.4 % (12.1-15.1); White Blood Count 4.8 10^3/uL (4.0-10.0)
[2022-05-26 11:13] LABS: Alanine Aminotransferase 11 U/L (0-41); Albumin Level 4.6 g/dL (3.5-5.2); Alkaline Phosphatase 67 U/L (40-130); Blood Urea Nitrogen 20 mg/dL (8-23); Calcium 10.9 mg/dL (8.5-10.5); Carbon Dioxide 30 mmol/L (22-29); Chloride 92 mmol/L (98-107); Creatinine Clr Calc Pharmacy 75.1317; Globulin 2.9 g/dL (1.3-4.6); Glucose 157 mg/dL (65-115); Osmolality Calculated 286 mOsm/kg (285-295); Sodium 135 mmol/L (136-145); Total Bilirubin 1.5 mg/dL (0.15-1.2); Total Protein 7.5 g/dL (6.6-8.7)
[2022-05-26 11:15] LABS: Anion Gap 17.1 (5-19); Aspartate Amino Transferase 15 U/L (0-40); Potassium 4.1 mmol/L (3.5-5.1)
[2022-05-26] MEDS: sodium chloride 0.9% 250 ML 100 ML IV (12:17)
[2022-05-26] MEDS: famotidine 20 mg/2 mL INJ IVP (12:18)
[2022-05-26] MEDS: diphenhydrAMINE 50 mg/mL SDV 1mL 25 MG IVP (12:18)
[2022-05-26] MEDS: dexamethasone 20 MG in sodium chloride 0.9% 50 ML 188 MG IV (12:22)
[2022-05-26] MEDS: palonosetron 0.25 mg/5 mL SDV IVP (12:23)
[2022-05-26] MEDS: acetaminophen 325 mg Tablet 650 MG PO (12:30)
[2022-05-26] MEDS: PACLitaxeL 90 MG in sodium chloride 0.9%(non-DEHP) 250 ML 265 MG IV (12:43)
[2022-05-26] MEDS: CARBOplatin 130 MG in sodium chloride 0.9% 500 ML 513 MG IV (13:56)
[2022-05-26 15:29] VITALS: BP 146/82; PULSE 74; TEMP 37.1; O2SAT 98
--- NOTE | 2022-05-27 14:48 | ONCRAD TMN_ITS ---
Radiation Oncology Treatment Management Note Patient Name: Brayan Wheeler Date of : 1945 Date of Service: 05/27/2022 Attending Physician: Ryder Valderrama M.D. Brayan Wheeler is a 77 year-old white male recently diagnosed with a clinical stage IIIA (T1cN2) non-small cell lung cancer. A screening thoracic CT scan in March 2021 revealed a left upper-lobe pleural-based nodule. Repeat imaging in July 2021 demonstrated an increase in the size of the nodule measuring 1.2 cm x 1 cm x 1 cm. A PET scan obtained confirmed the left upper lobe subpleural nodule with an SUV of 2.9. No metastatic disease was reported. He was referred to [facility] in [place], [place] for surgical management. A thoracic CT scan completed on February 13, 2022 described a 2.5 cm x 1.6 cm left upper-lobe nodule with an anterior mediastinal soft tissue lesion measuring 1 cm x 1.6 cm. A PET scan ordered on March 04, 2022 reported a 2.7 cm x 1.9 cm left upper-lobe, pleural-based nodule (SUV 13.3), a 1.5 cm x 1.3 cm anterior mediastinum/prevascular node (SUV 14.7), and an aorticopulmonary lymph node measuring 1.3 cm x 0.8 cm (SUV 9.7). There was no systemic metastases. A thymectomy with laparoscopic, robotic-assisted lymph node dissection was performed by Sung Dave M.D. on March 07, 2022. The pathology report detailed a metastatic, poorly differentiated adenocarcinoma consistent with a lung primary obtained from three out of twelve anterior mediastinal lymph nodes. Extracapsular extension was identified. The pleural specimens did not identify malignancy. The patient has received 54 Gy of a prescribed 60 Grover with an intensity modulated radiotherapy plan utilizing a step and shoot treatment technique. He has been prescribed Carboplatin (AUC 2) and paclitaxel (50 mg/m???) weekly during therapy. Upon review of systems, he denied pulmonary symptoms. On physical examination, the patient weighed 137 lbs. His temperature was 98 ???F and the blood pressure was 99/64 mmHg. The pulse was 90 bpm and his respiratory rate was 16. Oxygen saturation while breathing room air was 99%. There was no erythema within the treatment xiong. Bronchial breath sounds were present. Continue thoracic radiotherapy as planned. Signed by: Dr. Ryder Valderrama 05/27/2022 2:47:07 PM
--- NOTE | 2022-05-30 11:00 | N.ONRD TS_ITS ---
Radiation OncologyTreatment Summary Patient Name: Brayan Wheeler Date of : 1945 Date of Service: 05/30/2022 Attending Physician: Ryder Valderrama M.D. Brayan Wheeler has completed definitive thoracic radiotherapy for the management of a clinical stage IIIA (T1cN2) non-small cell lung cancer. A screening thoracic CT scan in March 2021 revealed a left upper-lobe pleural-based nodule. Repeat imaging in July 2021 demonstrated an increase in the size of the nodule measuring 1.2 cm x 1 cm x 1 cm. A PET scan obtained confirmed the left upper lobe subpleural nodule with an SUV of 2.9. No metastatic disease was reported. He was referred to [facility] in [place], [place] for surgical management. A thoracic CT scan completed on February 13, 2022 described a 2.5 cm x 1.6 cm left upper-lobe nodule with an anterior mediastinal soft tissue lesion measuring 1 cm x 1.6 cm. A PET scan ordered on March 04, 2022 reported a 2.7 cm x 1.9 cm left upper-lobe, pleural-based nodule (SUV 13.3), a 1.5 cm x 1.3 cm anterior mediastinum/prevascular node (SUV 14.7), and an aorticopulmonary lymph node measuring 1.3 cm x 0.8 cm (SUV 9.7). There was no systemic metastases. A thymectomy with laparoscopic, robotic-assisted lymph node dissection was performed by Sung Dave M.D. on March 07, 2022. The pathology report detailed a metastatic, poorly differentiated adenocarcinoma consistent with a lung primary obtained from three out of twelve anterior mediastinal lymph nodes. Extracapsular extension was identified. The pleural specimens did not identify malignancy. Thoracic radiation therapy was delivered between the dates of April 21, 2022 through May 30, 2022. A prescribed dose of 60 Gy was delivered in 30 fractions encompassing 40 elapsed days. The left lower-lobe nodule and mediastinal lymphadenopathy were treated utilizing an intensity modulated radiotherapy plan with a step and shoot treatment technique. The plan required eight gantry angles (0???, 30???, 60???, 90???, 140???, 220???, 300???, and 330???) replicating a partial arc. The collimator rotation was 0???. The field sizes spanned between 12.1 cm x 10.3 cm to 19.3 cm x 11.8 cm. The SSD measured a minimum of 81.6 cm to a maximum of 91.8 cm. The ports delivered 341 MU, 317 MU, 325 MU, 180 MU, 211 MU, 185 MU, 154 MU, and 284 MU corresponding to the gantry angles described. All treatments were performed with the [employer] Float linear accelerator and an isocentric technique. The dose was calculated by Anisotropic Analytic Algorithm. A photon energy of 6 MV was prescribed with the plan normalized to deliver 100% of the prescription dose to 95% of the planning target volume. He was prescribed carboplatin (AUC 2) and paclitaxel (50 mg/m???) weekly during radiotherapy under the supervision of Ofelia Gottlieb M.D (April 21, 2022 through May 26, 2022). Signed by: Dr. Ryder Valderrama 05/30/2022 10:59:10 AM
== END 2022-06-04 23:59 | disposition home or self-care (01) ==
PROVIDERS: Internal Medicine Hematology & Oncology; Nurse Practitioner Family; Absent Provider Radiology Radiation Oncology; PCP Family Medicine; Visit Provider Radiology Radiation Oncology
DX: Z51.0 Encounter for antineoplastic radiation therapy (principal); C34.10 Malignant neoplasm of upper lobe, unspecified bronchus or lung
CPT/HCPCS: 77014; 77336; 77386; 80053; 85025; 96367; 96375; 96413; 96417; 99214; 99215; J1100; J1200; J2469; J3490; J7030; J7040; J7050; J9045; J9267

== ENCOUNTER 2022-06-26 09:23 | Oncology outpatient (recurring) (ONCR) | payer OTHER, SELFPAY ==
[2022-06-11 10:17] LABS: Basophils % 0.5 %; Eosinophils % 0.2 %; Hematocrit 38.2 % (42.0-52.0); Lymphocytes # 0.3 10^3/uL (0.8-4.8); Lymphocytes % 7.7 %; Mean Corpuscular Hemoglobin 32.8 pg (28.0-34.0); Mean Corpuscular Volume 96.5 fl (80-94); Mean Platelet Volume 9.6 fL (7.4-10.4); Monocytes % 22.8 %; Neutrophils # 2.86 10^3/uL (1.8-7.7); Neutrophils % 68.6 %; Nucleated Red Blood Cells % 0 %; Platelet Count 294 10^3/cmm (130-400); Red Blood Count 3.96 10^6/uL (4.1-5.3); Red Cell Distribution Width 16.6 % (12.1-15.1); White Blood Count 4.2 10^3/uL (4.0-10.0)
[2022-06-11 10:55] LABS: Alanine Aminotransferase 11 U/L (0-41); Alkaline Phosphatase 65 U/L (40-130); Aspartate Amino Transferase 14 U/L (0-40); Blood Urea Nitrogen 14 mg/dL (8-23); Calcium 9.2 mg/dL (8.5-10.5); Carbon Dioxide 25 mmol/L (22-29); Chloride 97 mmol/L (98-107); Glucose 132 mg/dL (65-115); Osmolality Calculated 278 mOsm/kg (285-295); Sodium 133 mmol/L (136-145); Total Bilirubin 0.4 mg/dL (0.15-1.2)
[2022-06-11 10:58] LABS: Anion Gap 15.5 (5-19); Potassium 4.5 mmol/L (3.5-5.1)
[2022-06-23 09:06] LABS: Basophils # 0.1 10^3/uL (0.0-0.1); Eosinophils # 0.1 10^3/uL (0.0-0.8); Eosinophils % 0.7 %; Hematocrit 35.4 % (42.0-52.0); Hemoglobin 11.5 g/dL (11.7-16.6); Lymphocytes # 0.6 10^3/uL (0.8-4.8); Lymphocytes % 7.3 %; Mean Corpuscular HGB Conc 32.5 g/dL (30.0-36.0); Mean Corpuscular Hemoglobin 32.4 pg (28.0-34.0); Mean Corpuscular Volume 99.7 fl (80-94); Mean Platelet Volume 8.8 fL (7.4-10.4); Monocytes % 12.2 %; Neutrophils # 6.39 10^3/uL (1.8-7.7); Neutrophils % 78.3 %; Nucleated Red Blood Cells % 0 %; Platelet Count 268 10^3/cmm (130-400); Red Blood Count 3.55 10^6/uL (4.1-5.3); Red Cell Distribution Width 17.2 % (12.1-15.1); White Blood Count 8.2 10^3/uL (4.0-10.0)
[2022-06-23 09:43] LABS: Alanine Aminotransferase 12 U/L (0-41); Albumin Level 3.8 g/dL (3.5-5.2); Alkaline Phosphatase 70 U/L (40-130); Anion Gap 15.2 (5-19); Aspartate Amino Transferase 15 U/L (0-40); Blood Urea Nitrogen 14 mg/dL (8-23); Calcium 9.2 mg/dL (8.5-10.5); Carbon Dioxide 27 mmol/L (22-29); Chloride 103 mmol/L (98-107); Glucose 95 mg/dL (65-115); Osmolality Calculated 290 mOsm/kg (285-295); Potassium 5.2 mmol/L (3.5-5.1); Sodium 140 mmol/L (136-145); Total Bilirubin 0.3 mg/dL (0.15-1.2); Total Protein 6.8 g/dL (6.6-8.7)
[2022-06-23] MEDS: sodium chloride 0.9% 250 ML 100 ML IV (10:15)
[2022-06-23 11:57] VITALS: BP 147/71; PULSE 75; TEMP 37.3; O2SAT 98
--- NOTE | 2022-06-26 10:02 | ONCRAD EPV_ITS ---
Radiation Oncology Follow-Up Note Patient Name: Brayan Wheeler Date of : 1945 Date of Service: 06/26/2022 Attending Physician: Ryder Valderrama M.D. Brayan Wheeler returned to my office this morning for a routinely scheduled follow-up appointment. He completed thoracic radiotherapy in May for the management of a clinical stage IIIA (T1cN2) non-small cell lung cancer. A screening thoracic CT scan in March 2021 revealed a left upper-lobe pleural-based nodule. Repeat imaging in July 2021 demonstrated an increase in the size of the nodule measuring 1.2 cm x 1 cm x 1 cm. A PET scan obtained confirmed the left upper lobe subpleural nodule with an SUV of 2.9. No metastatic disease was reported. He was referred to [facility] in [place], [place] for surgical management. A thoracic CT scan completed on February 13, 2022 described a 2.5 cm x 1.6 cm left upper-lobe nodule with an anterior mediastinal soft tissue lesion measuring 1 cm x 1.6 cm. A PET scan ordered on March 04, 2022 reported a 2.7 cm x 1.9 cm left upper-lobe, pleural-based nodule (SUV 13.3), a 1.5 cm x 1.3 cm anterior mediastinum/prevascular node (SUV 14.7), and an aorticopulmonary lymph node measuring 1.3 cm x 0.8 cm (SUV 9.7). There was no systemic metastases. A thymectomy with laparoscopic, robotic-assisted lymph node dissection was performed by Sung Dave M.D. on March 07, 2022. The pathology report detailed a metastatic, poorly differentiated adenocarcinoma consistent with a lung primary obtained from three out of twelve anterior mediastinal lymph nodes. Extracapsular extension was identified. The pleural specimens did not identify malignancy. Thoracic radiation therapy was delivered between the dates of April 21, 2022 through May 30, 2022. A prescribed dose of 60 Gy was delivered in 30 fractions encompassing 40 elapsed days. He was prescribed carboplatin (AUC 2) and paclitaxel (50 mg/m???) weekly during radiotherapy under the supervision of Ofelia Gottlieb M.D (April 21, 2022 through May 26, 2022). On review of systems, he did not report any pulmonary changes. On physical examination, he weighed 137 lbs and the temperature was 98.2???F. His blood pressure was 153/76 mmHg and the pulse was 71 bpm. The respiratory rate was 20 breaths per minute. His oxygen saturation while breathing ambient air was 98%. Auscultation of the posterior lung xiong identified bronchial breath sounds. In summary, Mr. Wheeler returned for a routine post-radiotherapy follow-up. Immunotherapy (Imfinzi) has been prescribed and he will continue follow-up as scheduled with his medical oncologist. Signed by: Dr. Ryder Valderrama 06/26/2022 10:04:16 AM
== END 2022-07-04 23:59 | disposition home or self-care (01) ==
PROVIDERS: Internal Medicine Hematology & Oncology; Internal Medicine Medical Oncology; Absent Provider Radiology Radiation Oncology; PCP Family Medicine; Visit Provider Radiology Radiation Oncology
DX: Z08 Encounter for follow-up examination after completed treatment for malignant neoplasm (principal); Z85.118 Personal history of other malignant neoplasm of bronchus and lung; Z92.21 Personal history of antineoplastic chemotherapy; Z92.3 Personal history of irradiation
CPT/HCPCS: 36591; 80053; 84443; 85025; 96413; 99024; 99214; J7050; J9173

== ENCOUNTER → 2022-06-26 10:00 | Outpatient (BNVA) | payer OTHER, SELFPAY | PROVIDERS: PCP Family Medicine; Visit Provider Internal Medicine Pulmonary Disease | DX: J43.2 Centrilobular emphysema (principal); C34.12 Malignant neoplasm of upper lobe, left bronchus or lung; R91.1 Solitary pulmonary nodule; Z71.6 Tobacco abuse counseling; F17.210 Nicotine dependence, cigarettes, uncomplicated | CPT/HCPCS: 99214 ==

== ENCOUNTER 2022-07-09 13:13 | Outpatient (CLI) | payer OTHER, SELFPAY ==
[2022-07-09] MEDS: iohexol 350 mg/mL 100 mL Btl IV (13:58)
--- NOTE | 2022-07-09 14:00 | CT_ITS ---
WS: [id number] CT CHEST TECHNIQUE: Contrast enhanced CT of the chest with coronal and sagittal reformatted images. CLINICAL INFORMATION: completed chemo/radiation, starting immunotherapy COMPARISON: CT chest February 13, 2022 and PET/CT March 01, 2022 DLP: 628.[address] scans at [facility] use at least one of these dose optimization techniques: automated e xposure control; mA and/or kV adjustment per patient size (includes targeted exams where dose is matc hed to clinical indication); or iterative reconstruction. FINDINGS: Previously described FDG-positive LEFT upper lobe lesion subpleural in location and has decreased in size and nearly resolved compared to previous. Small amount of residual soft tissue thickening measur ing 6.9 mm. No evidence of progressed disease. Previously described prevascular FDG avid lymph node has resolved. Small residual AP window lymph nod e measuring 7 mm. Normal caliber thoracic aorta. Aortic calcification. Coronary calcification. No med iastinal or hilar lymphadenopathy. No axillary lymphadenopathy. Normal GE junction. Adrenal glands are normal. Normal spleen. Normal renal parenchymal enhancement. N o hydronephrosis. Incidental RIGHT renal cyst. Normal visualized portal vein and splenic vein. Mild t horacic kyphosis. Hypertrophic changes thoracic spine. CT/CT chest w con* [id number] IMPRESSION: 1. Near interval resolution of the previously described LEFT upper lobe FDG av id lung mass. Small amount of residual soft tissue in this area measuring 9 mm. 2. Small residual AP window lymph node measuring 7 mm. 3. Previously described prevascular lymph node has resolved. 4. No mediastinal or hilar lymphadenopathy today. 5. No evidence of progressed disease.
== END 2022-07-09 13:14 | disposition home or self-care (01) ==
LOC: RAD 13:14
PROVIDERS: PCP Family Medicine; Visit Provider Internal Medicine Hematology & Oncology
DX: C34.10 Malignant neoplasm of upper lobe, unspecified bronchus or lung (principal); Z92.3 Personal history of irradiation; Z92.21 Personal history of antineoplastic chemotherapy
CPT/HCPCS: 71260

== ENCOUNTER 2022-08-04 08:00 | Oncology outpatient (recurring) (ONCR) | payer OTHER, SELFPAY ==
[2022-07-07 08:46] LABS: Basophils # 0.1 10^3/uL (0.0-0.1); Eosinophils # 0.3 10^3/uL (0.0-0.8); Eosinophils % 4.1 %; Hematocrit 39.3 % (42.0-52.0); Lymphocytes # 0.6 10^3/uL (0.8-4.8); Lymphocytes % 8.2 %; Mean Corpuscular HGB Conc 33.1 g/dL (30.0-36.0); Mean Corpuscular Hemoglobin 32.8 pg (28.0-34.0); Mean Corpuscular Volume 99.2 fl (80-94); Mean Platelet Volume 9.4 fL (7.4-10.4); Monocytes # 0.9 10^3/uL (0.2-0.9); Monocytes % 12.6 %; Neutrophils # 5.02 10^3/uL (1.8-7.7); Neutrophils % 73.7 %; Nucleated Red Blood Cells % 0 %; Platelet Count 276 10^3/cmm (130-400); Red Blood Count 3.96 10^6/uL (4.1-5.3); Red Cell Distribution Width 16.9 % (12.1-15.1); White Blood Count 6.8 10^3/uL (4.0-10.0)
[2022-07-07 09:23] LABS: Alanine Aminotransferase 11 U/L (0-41); Albumin Level 4.2 g/dL (3.5-5.2); Alkaline Phosphatase 67 U/L (40-130); Anion Gap 13.7 (5-19); Aspartate Amino Transferase 14 U/L (0-40); Blood Urea Nitrogen 25 mg/dL (8-23); Calcium 9.8 mg/dL (8.5-10.5); Carbon Dioxide 26 mmol/L (22-29); Chloride 97 mmol/L (98-107); Globulin 2.9 g/dL (1.3-4.6); Glucose 122 mg/dL (65-115); Osmolality Calculated 280 mOsm/kg (285-295); Potassium 4.7 mmol/L (3.5-5.1); Sodium 132 mmol/L (136-145); Total Bilirubin 0.5 mg/dL (0.15-1.2); Total Protein 7.1 g/dL (6.6-8.7)
[2022-07-07] MEDS: sodium chloride 0.9% 250 ML 75 ML IV (10:14)
[2022-07-07 12:09] VITALS: BP 143/72; PULSE 74; RESP 16; TEMP 36.7; O2SAT 97
[2022-07-21 09:20] VITALS: BMI 19.3
[2022-07-21 09:31] LABS: Basophils # 0.1 10^3/uL (0.0-0.1); Basophils % 0.9 %; Eosinophils # 0.2 10^3/uL (0.0-0.8); Eosinophils % 2.7 %; Hematocrit 38.2 % (42.0-52.0); Hemoglobin 12.4 g/dL (11.7-16.6); Lymphocytes # 0.4 10^3/uL (0.8-4.8); Lymphocytes % 6.1 %; Mean Corpuscular HGB Conc 32.5 g/dL (30.0-36.0); Mean Corpuscular Volume 101.6 fl (80-94); Mean Platelet Volume 9.6 fL (7.4-10.4); Monocytes # 0.7 10^3/uL (0.2-0.9); Monocytes % 10.3 %; Neutrophils # 5.36 10^3/uL (1.8-7.7); Neutrophils % 79.7 %; Nucleated Red Blood Cells % 0 %; Platelet Count 224 10^3/cmm (130-400); Red Blood Count 3.76 10^6/uL (4.1-5.3); Red Cell Distribution Width 15.9 % (12.1-15.1); White Blood Count 6.7 10^3/uL (4.0-10.0)
[2022-07-21 10:02] LABS: Alanine Aminotransferase 10 U/L (0-41); Albumin Level 4.2 g/dL (3.5-5.2); Alkaline Phosphatase 81 U/L (40-130); Anion Gap 11.8 (5-19); Aspartate Amino Transferase 13 U/L (0-40); Blood Urea Nitrogen 25 mg/dL (8-23); Calcium 9.4 mg/dL (8.5-10.5); Carbon Dioxide 27 mmol/L (22-29); Chloride 100 mmol/L (98-107); Globulin 2.8 g/dL (1.3-4.6); Glucose 67 mg/dL (65-115); Osmolality Calculated 281 mOsm/kg (285-295); Potassium 4.8 mmol/L (3.5-5.1); Sodium 134 mmol/L (136-145); Thyroid Stimulating Hormone 1.28 uIU/mL (0.27-4.20); Total Bilirubin 0.3 mg/dL (0.15-1.2)
[2022-07-21] MEDS: sodium chloride 0.9% 250 ML 75 ML IV (11:01)
[2022-07-21 12:31] VITALS: BP 138/69; PULSE 66; RESP 16; TEMP 36.6; O2SAT 96
[2022-08-04 09:30] VITALS: BMI 19.4
[2022-08-04 09:54] LABS: Basophils % 0.4 %; Eosinophils # 0.1 10^3/uL (0.0-0.8); Eosinophils % 1.9 %; Hematocrit 39.6 % (42.0-52.0); Hemoglobin 13.1 g/dL (11.7-16.6); Lymphocytes # 0.5 10^3/uL (0.8-4.8); Lymphocytes % 10.1 %; Mean Corpuscular HGB Conc 33.1 g/dL (30.0-36.0); Mean Corpuscular Hemoglobin 33.4 pg (28.0-34.0); Mean Platelet Volume 9.6 fL (7.4-10.4); Monocytes # 0.6 10^3/uL (0.2-0.9); Monocytes % 10.7 %; Neutrophils # 3.95 10^3/uL (1.8-7.7); Neutrophils % 76.7 %; Nucleated Red Blood Cells % 0 %; Platelet Count 221 10^3/cmm (130-400); Red Blood Count 3.92 10^6/uL (4.1-5.3); White Blood Count 5.2 10^3/uL (4.0-10.0)
[2022-08-04 10:27] LABS: Alanine Aminotransferase 11 U/L (0-41); Albumin Level 4.1 g/dL (3.5-5.2); Alkaline Phosphatase 68 U/L (40-130); Anion Gap 14.7 (5-19); Aspartate Amino Transferase 11 U/L (0-40); Blood Urea Nitrogen 21 mg/dL (8-23); Calcium 9.7 mg/dL (8.5-10.5); Carbon Dioxide 26 mmol/L (22-29); Chloride 100 mmol/L (98-107); Globulin 2.9 g/dL (1.3-4.6); Glucose 101 mg/dL (65-115); Osmolality Calculated 285 mOsm/kg (285-295); Potassium 4.7 mmol/L (3.5-5.1); Sodium 136 mmol/L (136-145); Thyroid Stimulating Hormone 1.23 uIU/mL (0.27-4.20); Total Bilirubin 0.6 mg/dL (0.15-1.2)
== END 2022-08-04 23:59 | disposition home or self-care (01) ==
PROVIDERS: Internal Medicine Hematology & Oncology; Absent Provider Radiology Radiation Oncology; PCP Family Medicine; Visit Provider Radiology Radiation Oncology
DX: C34.12 Malignant neoplasm of upper lobe, left bronchus or lung; F17.210 Nicotine dependence, cigarettes, uncomplicated; C78.1 Secondary malignant neoplasm of mediastinum; Z79.899 Other long term (current) drug therapy
CPT/HCPCS: 36591; 80053; 84443; 85025; 96413; 99214; J7050; J9173

== ENCOUNTER 2022-08-19 09:00 | Oncology outpatient (recurring) (ONCR) | payer OTHER, SELFPAY ==
[2022-08-05 08:58] VITALS: BMI 19.5
[2022-08-05] MEDS: sodium chloride 0.9% 250 ML 75 ML IV (09:51)
[2022-08-05 11:30] VITALS: BP 151/76; PULSE 61; RESP 16; TEMP 36.3; O2SAT 98
[2022-08-19 09:13] LABS: Basophils % 0.4 %; Eosinophils % 1.6 %; Hematocrit 41.5 % (42.0-52.0); Hemoglobin 13.9 g/dL (11.7-16.6); Lymphocytes # 0.5 10^3/uL (0.8-4.8); Lymphocytes % 18.3 %; Mean Corpuscular HGB Conc 33.5 g/dL (30.0-36.0); Mean Corpuscular Hemoglobin 33.4 pg (28.0-34.0); Mean Corpuscular Volume 99.8 fl (80-94); Mean Platelet Volume 10.9 fL (7.4-10.4); Monocytes # 0.4 10^3/uL (0.2-0.9); Monocytes % 14.4 %; Neutrophils # 1.67 10^3/uL (1.8-7.7); Neutrophils % 64.9 %; Nucleated Red Blood Cells % 0 %; Platelet Count 161 10^3/cmm (130-400); Red Blood Count 4.16 10^6/uL (4.1-5.3); Red Cell Distribution Width 14.1 % (12.1-15.1); White Blood Count 2.6 10^3/uL (4.0-10.0)
[2022-08-19 09:55] LABS: Alanine Aminotransferase 11 U/L (0-41); Albumin Level 3.9 g/dL (3.5-5.2); Alkaline Phosphatase 64 U/L (40-130); Aspartate Amino Transferase 14 U/L (0-40); Blood Urea Nitrogen 14 mg/dL (8-23); Calcium 9.1 mg/dL (8.5-10.5); Carbon Dioxide 25 mmol/L (22-29); Chloride 100 mmol/L (98-107); Globulin 2.9 g/dL (1.3-4.6); Glucose 108 mg/dL (65-115); Osmolality Calculated 281 mOsm/kg (285-295); Sodium 135 mmol/L (136-145); Thyroid Stimulating Hormone 0.99 uIU/mL (0.27-4.20); Total Bilirubin 0.5 mg/dL (0.15-1.2); Total Protein 6.8 g/dL (6.6-8.7)
== END 2022-08-20 09:20 | disposition home or self-care (01) ==
PROVIDERS: Internal Medicine Hematology & Oncology; Absent Provider Radiology Radiation Oncology; PCP Family Medicine; Visit Provider Radiology Radiation Oncology
DX: Z51.12 Encounter for antineoplastic immunotherapy (principal); C34.12 Malignant neoplasm of upper lobe, left bronchus or lung; C77.8 Secondary and unspecified malignant neoplasm of lymph nodes of multiple regions; F17.210 Nicotine dependence, cigarettes, uncomplicated; Z79.899 Other long term (current) drug therapy; Z92.3 Personal history of irradiation
CPT/HCPCS: 80053; 84443; 85025; 96413; 99214; J7050; J9173

== ENCOUNTER 2022-09-03 11:37 | Oncology outpatient (recurring) (ONCR) | payer OTHER, SELFPAY ==
[2022-09-03 12:02] LABS: Basophils % 0.6 %; Eosinophils # 0.1 10^3/uL (0.0-0.8); Hematocrit 41.8 % (42.0-52.0); Hemoglobin 13.4 g/dL (11.7-16.6); Lymphocytes # 0.5 10^3/uL (0.8-4.8); Lymphocytes % 10.3 %; Mean Corpuscular HGB Conc 32.1 g/dL (30.0-36.0); Mean Corpuscular Hemoglobin 32.3 pg (28.0-34.0); Mean Corpuscular Volume 100.7 fl (80-94); Mean Platelet Volume 9.9 fL (7.4-10.4); Monocytes # 0.7 10^3/uL (0.2-0.9); Monocytes % 14.7 %; Neutrophils # 3.63 10^3/uL (1.8-7.7); Neutrophils % 72.2 %; Nucleated Red Blood Cells % 0 %; Platelet Count 220 10^3/cmm (130-400); Red Blood Count 4.15 10^6/uL (4.1-5.3); Red Cell Distribution Width 14.2 % (12.1-15.1)
[2022-09-03 13:23] LABS: Alanine Aminotransferase 12 U/L (0-41); Alkaline Phosphatase 80 U/L (40-130); Anion Gap 12.9 (5-19); Aspartate Amino Transferase 13 U/L (0-40); Blood Urea Nitrogen 25 mg/dL (8-23); Calcium 9.5 mg/dL (8.5-10.5); Carbon Dioxide 26 mmol/L (22-29); Chloride 102 mmol/L (98-107); Globulin 2.8 g/dL (1.3-4.6); Glucose 91 mg/dL (65-115); Osmolality Calculated 286 mOsm/kg (285-295); Potassium 4.9 mmol/L (3.5-5.1); Sodium 136 mmol/L (136-145); Thyroid Stimulating Hormone 1.08 uIU/mL (0.27-4.20); Total Bilirubin 0.5 mg/dL (0.15-1.2); Total Protein 6.8 g/dL (6.6-8.7)
== END 2022-09-03 23:59 | disposition home or self-care (01) ==
PROVIDERS: Internal Medicine Hematology & Oncology; Absent Provider Radiology Radiation Oncology; PCP Family Medicine; Visit Provider Radiology Radiation Oncology
DX: Z51.12 Encounter for antineoplastic immunotherapy (principal); C34.12 Malignant neoplasm of upper lobe, left bronchus or lung; C77.8 Secondary and unspecified malignant neoplasm of lymph nodes of multiple regions; F17.210 Nicotine dependence, cigarettes, uncomplicated; C34.10 Malignant neoplasm of upper lobe, unspecified bronchus or lung; Z79.899 Other long term (current) drug therapy
CPT/HCPCS: 80053; 84443; 85025; 96413; 99214; J7050; J9173

== ENCOUNTER 2022-10-02 09:00 | Oncology outpatient (recurring) (ONCR) | payer OTHER, SELFPAY ==
[2022-09-18 09:31] LABS: Basophils # 0.1 10^3/uL (0.0-0.1); Basophils % 0.9 %; Eosinophils # 0.1 10^3/uL (0.0-0.8); Eosinophils % 2.4 %; Hematocrit 46.1 % (42.0-52.0); Hemoglobin 15.1 g/dL (11.7-16.6); Lymphocytes # 0.6 10^3/uL (0.8-4.8); Lymphocytes % 10.2 %; Mean Corpuscular HGB Conc 32.8 g/dL (30.0-36.0); Mean Corpuscular Hemoglobin 32.1 pg (28.0-34.0); Mean Corpuscular Volume 97.9 fl (80-94); Mean Platelet Volume 10.4 fL (7.4-10.4); Monocytes # 0.8 10^3/uL (0.2-0.9); Monocytes % 13.9 %; Neutrophils # 3.88 10^3/uL (1.8-7.7); Neutrophils % 72.2 %; Nucleated Red Blood Cells % 0 %; Platelet Count 206 10^3/cmm (130-400); Red Blood Count 4.71 10^6/uL (4.1-5.3); Red Cell Distribution Width 14.5 % (12.1-15.1); White Blood Count 5.4 10^3/uL (4.0-10.0)
[2022-09-18 10:01] LABS: Alanine Aminotransferase 7 U/L (0-41); Albumin Level 4.3 g/dL (3.5-5.2); Alkaline Phosphatase 76 U/L (40-130); Anion Gap 13.7 (5-19); Aspartate Amino Transferase 12 U/L (0-40); Blood Urea Nitrogen 21 mg/dL (8-23); Calcium 9.8 mg/dL (8.5-10.5); Carbon Dioxide 26 mmol/L (22-29); Chloride 100 mmol/L (98-107); Globulin 2.8 g/dL (1.3-4.6); Glucose 98 mg/dL (65-115); Osmolality Calculated 283 mOsm/kg (285-295); Potassium 4.7 mmol/L (3.5-5.1); Sodium 135 mmol/L (136-145); Thyroid Stimulating Hormone 1.37 uIU/mL (0.27-4.20); Total Bilirubin 0.4 mg/dL (0.15-1.2); Total Protein 7.1 g/dL (6.6-8.7)
[2022-09-18] MEDS: sodium chloride 0.9% 250 ML 75 ML IV (11:39)
[2022-09-18 13:02] VITALS: BP 161/83; PULSE 74; RESP 16; TEMP 37.1; O2SAT 95
[2022-10-02 09:22] LABS: Basophils # 0.1 10^3/uL (0.0-0.1); Basophils % 0.8 %; Eosinophils # 0.1 10^3/uL (0.0-0.8); Eosinophils % 2.3 %; Hemoglobin 14.6 g/dL (11.7-16.6); Lymphocytes # 0.7 10^3/uL (0.8-4.8); Lymphocytes % 10.6 %; Mean Corpuscular HGB Conc 33.2 g/dL (30.0-36.0); Mean Corpuscular Hemoglobin 32.1 pg (28.0-34.0); Mean Corpuscular Volume 96.7 fl (80-94); Mean Platelet Volume 9.9 fL (7.4-10.4); Monocytes # 0.8 10^3/uL (0.2-0.9); Monocytes % 13.4 %; Neutrophils # 4.44 10^3/uL (1.8-7.7); Neutrophils % 72.6 %; Nucleated Red Blood Cells % 0 %; Platelet Count 214 10^3/cmm (130-400); Red Blood Count 4.55 10^6/uL (4.1-5.3); Red Cell Distribution Width 14.8 % (12.1-15.1); White Blood Count 6.1 10^3/uL (4.0-10.0)
[2022-10-02 09:52] LABS: Alanine Aminotransferase 10 U/L (0-41); Albumin Level 4.2 g/dL (3.5-5.2); Alkaline Phosphatase 80 U/L (40-130); Anion Gap 13.1 (5-19); Aspartate Amino Transferase 13 U/L (0-40); Blood Urea Nitrogen 24 mg/dL (8-23); Carbon Dioxide 27 mmol/L (22-29); Chloride 100 mmol/L (98-107); Globulin 3.1 g/dL (1.3-4.6); Glucose 101 mg/dL (65-115); Osmolality Calculated 284 mOsm/kg (285-295); Potassium 5.1 mmol/L (3.5-5.1); Sodium 135 mmol/L (136-145); Thyroid Stimulating Hormone 1.13 uIU/mL (0.27-4.20); Total Bilirubin 0.4 mg/dL (0.15-1.2); Total Protein 7.3 g/dL (6.6-8.7)
[2022-10-02 12:32] VITALS: BP 128/62; PULSE 72; RESP 16; TEMP 36.3; O2SAT 95
== END 2022-10-04 23:59 | disposition home or self-care (01) ==
PROVIDERS: Nurse Practitioner; Absent Provider Radiology Radiation Oncology; PCP Family Medicine; Visit Provider Internal Medicine Hematology & Oncology
DX: Z51.12 Encounter for antineoplastic immunotherapy (principal); C34.12 Malignant neoplasm of upper lobe, left bronchus or lung; Z79.899 Other long term (current) drug therapy
CPT/HCPCS: 80053; 84443; 85025; 96413; 99214; J7050; J9173

== ENCOUNTER 2022-10-30 08:00 | Oncology outpatient (recurring) (ONCR) | payer OTHER, SELFPAY ==
[2022-10-16 09:13] VITALS: BMI 20.8
[2022-10-16 09:15] LABS: Basophils % 0.5 %; Eosinophils # 0.2 10^3/uL (0.0-0.8); Eosinophils % 3.1 %; Hematocrit 46.7 % (42.0-52.0); Hemoglobin 15.5 g/dL (11.7-16.6); Lymphocytes # 0.5 10^3/uL (0.8-4.8); Lymphocytes % 9.8 %; Mean Corpuscular HGB Conc 33.2 g/dL (30.0-36.0); Mean Corpuscular Volume 96.3 fl (80-94); Monocytes # 0.7 10^3/uL (0.2-0.9); Monocytes % 12.7 %; Neutrophils # 4.08 10^3/uL (1.8-7.7); Neutrophils % 73.7 %; Nucleated Red Blood Cells % 0 %; Platelet Count 202 10^3/cmm (130-400); Red Blood Count 4.85 10^6/uL (4.1-5.3); Red Cell Distribution Width 14.7 % (12.1-15.1); White Blood Count 5.5 10^3/uL (4.0-10.0)
[2022-10-16 09:47] LABS: Alanine Aminotransferase 10 U/L (0-41); Albumin Level 4.2 g/dL (3.5-5.2); Alkaline Phosphatase 84 U/L (40-130); Anion Gap 13.8 (5-19); Aspartate Amino Transferase 15 U/L (0-40); Blood Urea Nitrogen 21 mg/dL (8-23); Calcium 9.9 mg/dL (8.5-10.5); Carbon Dioxide 26 mmol/L (22-29); Chloride 100 mmol/L (98-107); Globulin 3.1 g/dL (1.3-4.6); Glucose 112 mg/dL (65-115); Osmolality Calculated 284 mOsm/kg (285-295); Potassium 4.8 mmol/L (3.5-5.1); Sodium 135 mmol/L (136-145); Thyroid Stimulating Hormone 1.56 uIU/mL (0.27-4.20); Total Bilirubin 0.5 mg/dL (0.15-1.2); Total Protein 7.3 g/dL (6.6-8.7)
[2022-10-16] MEDS: sodium chloride 0.9% 250 ML 75 ML IV (11:02)
[2022-10-16 12:33] VITALS: BP 144/79; PULSE 70; RESP 16; TEMP 36.4; O2SAT 98
[2022-10-30 08:28] LABS: Basophils # 0.1 10^3/uL (0.0-0.1); Basophils % 0.8 %; Eosinophils # 0.2 10^3/uL (0.0-0.8); Eosinophils % 3.2 %; Hematocrit 43.3 % (42.0-52.0); Hemoglobin 14.1 g/dL (11.7-16.6); Lymphocytes # 0.6 10^3/uL (0.8-4.8); Lymphocytes % 9.9 %; Mean Corpuscular HGB Conc 32.6 g/dL (30.0-36.0); Mean Corpuscular Hemoglobin 31.7 pg (28.0-34.0); Mean Corpuscular Volume 97.3 fl (80-94); Mean Platelet Volume 9.4 fL (7.4-10.4); Monocytes # 0.7 10^3/uL (0.2-0.9); Monocytes % 12.1 %; Neutrophils # 4.36 10^3/uL (1.8-7.7); Neutrophils % 73.7 %; Nucleated Red Blood Cells % 0 %; Platelet Count 218 10^3/cmm (130-400); Red Blood Count 4.45 10^6/uL (4.1-5.3); Red Cell Distribution Width 14.6 % (12.1-15.1); White Blood Count 5.9 10^3/uL (4.0-10.0)
[2022-10-30 09:00] LABS: Alanine Aminotransferase 9 U/L (0-41); Alkaline Phosphatase 71 U/L (40-130); Anion Gap 14.1 (5-19); Aspartate Amino Transferase 16 U/L (0-40); Blood Urea Nitrogen 16 mg/dL (8-23); Calcium 8.9 mg/dL (8.5-10.5); Carbon Dioxide 25 mmol/L (22-29); Chloride 102 mmol/L (98-107); Glucose 138 mg/dL (65-115); Osmolality Calculated 285 mOsm/kg (285-295); Potassium 5.1 mmol/L (3.5-5.1); Sodium 136 mmol/L (136-145); Thyroid Stimulating Hormone 1.59 uIU/mL (0.27-4.20); Total Bilirubin 0.4 mg/dL (0.15-1.2)
[2022-10-30 11:40] VITALS: BP 122/68; PULSE 82; RESP 18; TEMP 36.6; O2SAT 98
== END 2022-11-04 23:59 | disposition home or self-care (01) ==
PROVIDERS: Absent Provider Radiology Radiation Oncology; PCP Family Medicine; Visit Provider Internal Medicine Hematology & Oncology
DX: Z51.12 Encounter for antineoplastic immunotherapy (principal); C34.12 Malignant neoplasm of upper lobe, left bronchus or lung; C77.8 Secondary and unspecified malignant neoplasm of lymph nodes of multiple regions; F17.210 Nicotine dependence, cigarettes, uncomplicated; Z79.899 Other long term (current) drug therapy
CPT/HCPCS: 80053; 84443; 85025; 96413; 99214; J7050; J9173

== ENCOUNTER 2022-11-27 09:30 | Oncology outpatient (recurring) (ONCR) | payer OTHER, SELFPAY ==
[2022-11-13 08:21] LABS: Basophils % 0.4 %; Eosinophils # 0.2 10^3/uL (0.0-0.8); Eosinophils % 2.6 %; Hematocrit 44.2 % (42.0-52.0); Hemoglobin 14.6 g/dL (11.7-16.6); Lymphocytes # 0.6 10^3/uL (0.8-4.8); Lymphocytes % 8.7 %; Mean Corpuscular Hemoglobin 31.9 pg (28.0-34.0); Mean Corpuscular Volume 96.5 fl (80-94); Monocytes # 0.9 10^3/uL (0.2-0.9); Monocytes % 13.3 %; Neutrophils # 5.13 10^3/uL (1.8-7.7); Neutrophils % 74.9 %; Nucleated Red Blood Cells % 0 %; Platelet Count 220 10^3/cmm (130-400); Red Blood Count 4.58 10^6/uL (4.1-5.3); Red Cell Distribution Width 14.1 % (12.1-15.1); White Blood Count 6.9 10^3/uL (4.0-10.0)
[2022-11-13 08:49] LABS: Alanine Aminotransferase 8 U/L (0-41); Albumin Level 4.2 g/dL (3.5-5.2); Alkaline Phosphatase 80 U/L (40-130); Anion Gap 13.8 (5-19); Aspartate Amino Transferase 12 U/L (0-40); Blood Urea Nitrogen 17 mg/dL (8-23); Calcium 9.1 mg/dL (8.5-10.5); Carbon Dioxide 26 mmol/L (22-29); Chloride 98 mmol/L (98-107); Globulin 2.7 g/dL (1.3-4.6); Glucose 96 mg/dL (65-115); Osmolality Calculated 277 mOsm/kg (285-295); Potassium 4.8 mmol/L (3.5-5.1); Sodium 133 mmol/L (136-145); Thyroid Stimulating Hormone 1.74 uIU/mL (0.27-4.20); Total Bilirubin 0.3 mg/dL (0.15-1.2); Total Protein 6.9 g/dL (6.6-8.7)
[2022-11-13 12:10] VITALS: BP 162/68; PULSE 64; TEMP 37; O2SAT 96
[2022-11-27 09:45] VITALS: BMI 21.3
[2022-11-27 09:51] LABS: Basophils # 0.1 10^3/uL (0.0-0.1); Basophils % 0.7 %; Eosinophils # 0.1 10^3/uL (0.0-0.8); Eosinophils % 1.7 %; Hematocrit 46.2 % (42.0-52.0); Hemoglobin 15.3 g/dL (11.7-16.6); Lymphocytes # 0.7 10^3/uL (0.8-4.8); Lymphocytes % 9.4 %; Mean Corpuscular HGB Conc 33.1 g/dL (30.0-36.0); Mean Corpuscular Hemoglobin 31.6 pg (28.0-34.0); Mean Corpuscular Volume 95.5 fl (80-94); Mean Platelet Volume 10.2 fL (7.4-10.4); Monocytes # 0.8 10^3/uL (0.2-0.9); Neutrophils # 5.32 10^3/uL (1.8-7.7); Neutrophils % 76.9 %; Nucleated Red Blood Cells % 0 %; Platelet Count 236 10^3/cmm (130-400); Red Blood Count 4.84 10^6/uL (4.1-5.3); Red Cell Distribution Width 14.4 % (12.1-15.1); White Blood Count 6.9 10^3/uL (4.0-10.0)
[2022-11-27 10:17] LABS: Alanine Aminotransferase 11 U/L (0-41); Albumin Level 4.1 g/dL (3.5-5.2); Alkaline Phosphatase 76 U/L (40-130); Anion Gap 15.9 (5-19); Aspartate Amino Transferase 14 U/L (0-40); Blood Urea Nitrogen 20 mg/dL (8-23); Calcium 9.3 mg/dL (8.5-10.5); Carbon Dioxide 25 mmol/L (22-29); Chloride 98 mmol/L (98-107); Globulin 2.9 g/dL (1.3-4.6); Glucose 126 mg/dL (65-115); Osmolality Calculated 282 mOsm/kg (285-295); Potassium 4.9 mmol/L (3.5-5.1); Sodium 134 mmol/L (136-145); Thyroid Stimulating Hormone 1.58 uIU/mL (0.27-4.20); Total Bilirubin 0.7 mg/dL (0.15-1.2)
[2022-11-27 12:55] VITALS: BP 142/72; PULSE 78; RESP 18; TEMP 36.6; O2SAT 98
== END 2022-12-02 23:59 | disposition home or self-care (01) ==
PROVIDERS: Absent Provider Radiology Radiation Oncology; PCP Family Medicine; Visit Provider Internal Medicine Hematology & Oncology
DX: Z51.12 Encounter for antineoplastic immunotherapy (principal); C34.12 Malignant neoplasm of upper lobe, left bronchus or lung; C77.8 Secondary and unspecified malignant neoplasm of lymph nodes of multiple regions; E87.1 Hypo-osmolality and hyponatremia; Z79.899 Other long term (current) drug therapy; F17.210 Nicotine dependence, cigarettes, uncomplicated
CPT/HCPCS: 80053; 84443; 85025; 96413; 99214; J7050; J9173

== ENCOUNTER 2022-12-10 12:57 | Outpatient (CLI) | payer OTHER, SELFPAY ==
--- NOTE | 2022-12-10 13:30 | CT_ITS ---
WS: [id number] CT CHEST WITH INTRAVENOUS CONTRAST HISTORY: Follow-up lung cancer. TECHNIQUE: Contiguous 5 mm axial imaging performed on the thorax. Coronal and sagittal reformats are submitted. All CT scans at [facility] use at least one of these dose optimization techniques: automated exposure control; mA and/or kV adjustment per patient size (includes targeted exams where dose is matched to clinical indication); or iterative reconstruction. CONTRAST: Omnipaque 350; 95 mL IV. DLP: 300.21 mGy.cm COMPARISON: 07/09/2022, 02/13/2022 and PET/CT 03/01/2022 Lungs and central airway: Hyperexpanded lungs. Minimal residual LEFT upper lobe subpleural linear opa cification. Residual triangular soft tissue abutting the pleura measures 5 x 8 mm. As compared to the prior study there has been no obvious increase in size and may be slight improvement. Very minimal i nterstitial thickening and groundglass attenuation adjacent to the aortic arch. This is new since the prior study. Pleura: Normal. No pleural effusion. Heart and pericardium: Normal size heart with no pericardial effusion. Mediastinum and soumya: No adenopathy. No new or enlarging prevascular or AP window lymph nodes. There are a few very small remaining lymph nodes which are not increasing in size. Vessels: Ectatic atherosclerotic aorta. No aneurysm. Normal size pulmonary artery. Chest wall and lower neck: Right-sided Port-A-Cath. Upper abdomen: Small hiatal hernia. Mild hepatic steatosis with no mass. No bile duct dilatation is e vident. Suprarenal atherosclerotic aorta. No adrenal mass. Osseous structures: Moderate spondylitic changes throughout the thoracic spine. No destructive bone l esions. Healed rib fractures in the posterior LEFT thorax. CT/CT chest w con* [id number] IMPRESSION: 1. No recurrent LEFT upper lobe neoplasm. Mild persistent linear subpleural so ft tissue consistent with scar. 2. New groundglass opacification adjacent to the aortic arch may be post radia tion induced lung disease or focal area of pneumonitis. This can be reevaluated on follow-up studies. 3. No new or enlarging mediastinal or hilar lymph nodes. 4. Extensive atherosclerotic calcification in thoracic aorta and coronary andres jennifer.
[2022-12-10] MEDS: iohexol 350 mg/mL 500 mL Btl (per mL) IV (13:32)
== END 2022-12-10 12:58 | disposition home or self-care (01) ==
PROVIDERS: PCP Family Medicine; Visit Provider Internal Medicine Hematology & Oncology
DX: C34.12 Malignant neoplasm of upper lobe, left bronchus or lung (principal); I70.0 Atherosclerosis of aorta; I25.10 Atherosclerotic heart disease of native coronary artery without angina pectoris
CPT/HCPCS: 71260; Q9967

== ENCOUNTER 2022-12-25 09:37 | Oncology outpatient (recurring) (ONCR) | payer OTHER, SELFPAY ==
[2022-12-11 10:39] LABS: Basophils % 0.3 %; Eosinophils # 0.2 10^3/uL (0.0-0.8); Eosinophils % 2.7 %; Hematocrit 44.4 % (42.0-52.0); Hemoglobin 14.6 g/dL (11.7-16.6); Lymphocytes # 0.6 10^3/uL (0.8-4.8); Lymphocytes % 10.1 %; Mean Corpuscular HGB Conc 32.9 g/dL (30.0-36.0); Mean Corpuscular Hemoglobin 31.5 pg (28.0-34.0); Mean Corpuscular Volume 95.7 fl (80-94); Mean Platelet Volume 10.1 fL (7.4-10.4); Monocytes # 0.8 10^3/uL (0.2-0.9); Monocytes % 13.3 %; Neutrophils % 73.3 %; Nucleated Red Blood Cells % 0 %; Platelet Count 241 10^3/cmm (130-400); Red Blood Count 4.64 10^6/uL (4.1-5.3); Red Cell Distribution Width 14.6 % (12.1-15.1)
[2022-12-11 11:11] LABS: Alanine Aminotransferase 10 U/L (0-41); Albumin Level 3.9 g/dL (3.5-5.2); Alkaline Phosphatase 67 U/L (40-130); Anion Gap 14.7 (5-19); Aspartate Amino Transferase 14 U/L (0-40); Blood Urea Nitrogen 15 mg/dL (8-23); Calcium 9.2 mg/dL (8.5-10.5); Carbon Dioxide 26 mmol/L (22-29); Chloride 96 mmol/L (98-107); Glucose 97 mg/dL (65-115); Osmolality Calculated 275 mOsm/kg (285-295); Potassium 4.7 mmol/L (3.5-5.1); Sodium 132 mmol/L (136-145); Thyroid Stimulating Hormone 1.39 uIU/mL (0.27-4.20); Total Bilirubin 0.9 mg/dL (0.15-1.2); Total Protein 6.9 g/dL (6.6-8.7)
[2022-12-11] MEDS: sodium chloride 0.9% 250 ML 75 ML IV (12:27)
[2022-12-11 14:12] VITALS: BP 143/74; PULSE 67; RESP 18; TEMP 36.6; O2SAT 95
[2022-12-25 10:03] VITALS: BMI 20.7
[2022-12-25 10:11] LABS: Basophils % 0.6 %; Eosinophils # 0.1 10^3/uL (0.0-0.8); Eosinophils % 1.5 %; Hematocrit 41.2 % (42.0-52.0); Hemoglobin 13.4 g/dL (11.7-16.6); Lymphocytes # 0.5 10^3/uL (0.8-4.8); Lymphocytes % 8.4 %; Mean Corpuscular HGB Conc 32.5 g/dL (30.0-36.0); Mean Corpuscular Hemoglobin 31.4 pg (28.0-34.0); Mean Corpuscular Volume 96.5 fl (80-94); Mean Platelet Volume 9.9 fL (7.4-10.4); Monocytes # 0.8 10^3/uL (0.2-0.9); Monocytes % 13.4 %; Neutrophils % 75.9 %; Nucleated Red Blood Cells % 0 %; Platelet Count 236 10^3/cmm (130-400); Red Blood Count 4.27 10^6/uL (4.1-5.3); Red Cell Distribution Width 14.3 % (12.1-15.1); White Blood Count 6.2 10^3/uL (4.0-10.0)
[2022-12-25 10:39] LABS: Alanine Aminotransferase 8 U/L (0-41); Albumin Level 4.1 g/dL (3.5-5.2); Alkaline Phosphatase 65 U/L (40-130); Aspartate Amino Transferase 15 U/L (0-40); Blood Urea Nitrogen 22 mg/dL (8-23); Calcium 8.9 mg/dL (8.5-10.5); Carbon Dioxide 27 mmol/L (22-29); Chloride 101 mmol/L (98-107); Creatinine Clr Calc Pharmacy 67.9792; Globulin 2.7 g/dL (1.3-4.6); Glucose 112 mg/dL (65-115); Osmolality Calculated 288 mOsm/kg (285-295); Sodium 137 mmol/L (136-145); Thyroid Stimulating Hormone 1.42 uIU/mL (0.27-4.20); Total Bilirubin 0.5 mg/dL (0.15-1.2); Total Protein 6.8 g/dL (6.6-8.7)
[2022-12-25] MEDS: sodium chloride 0.9% 250 ML 75 ML IV (12:03)
[2022-12-25 13:43] VITALS: BP 151/76; PULSE 66; RESP 18; TEMP 36.5; O2SAT 96
== END 2023-01-02 23:59 | disposition home or self-care (01) ==
PROVIDERS: Absent Provider Radiology Radiation Oncology; PCP Family Medicine; Visit Provider Internal Medicine Hematology & Oncology
DX: Z51.12 Encounter for antineoplastic immunotherapy (principal); C34.12 Malignant neoplasm of upper lobe, left bronchus or lung; Z79.899 Other long term (current) drug therapy; C77.8 Secondary and unspecified malignant neoplasm of lymph nodes of multiple regions; F17.210 Nicotine dependence, cigarettes, uncomplicated
CPT/HCPCS: 80053; 84443; 85025; 96413; 99214; J7050; J9173

== ENCOUNTER 2023-01-22 08:00 | Oncology outpatient (recurring) (ONCR) | payer OTHER, SELFPAY ==
[2023-01-08 08:04] VITALS: BP 162/86; PULSE 70; TEMP 37; O2SAT 99
[2023-01-08 08:21] LABS: Basophils # 0.1 10^3/uL (0.0-0.1); Basophils % 0.7 %; Eosinophils # 0.2 10^3/uL (0.0-0.8); Eosinophils % 3.4 %; Hematocrit 45.9 % (42.0-52.0); Hemoglobin 15.5 g/dL (11.7-16.6); Lymphocytes # 0.8 10^3/uL (0.8-4.8); Lymphocytes % 11.2 %; Mean Corpuscular HGB Conc 33.8 g/dL (30.0-36.0); Mean Corpuscular Hemoglobin 32.6 pg (28.0-34.0); Mean Corpuscular Volume 96.4 fl (80-94); Mean Platelet Volume 9.6 fL (7.4-10.4); Monocytes # 0.7 10^3/uL (0.2-0.9); Monocytes % 10.2 %; Neutrophils # 5.01 10^3/uL (1.8-7.7); Neutrophils % 74.2 %; Nucleated Red Blood Cells % 0 %; Platelet Count 213 10^3/cmm (130-400); Red Blood Count 4.76 10^6/uL (4.1-5.3); Red Cell Distribution Width 14.7 % (12.1-15.1); White Blood Count 6.8 10^3/uL (4.0-10.0)
[2023-01-08 08:45] LABS: Alanine Aminotransferase 9 U/L (0-41); Alkaline Phosphatase 66 U/L (40-130); Anion Gap 14.7 (5-19); Aspartate Amino Transferase 12 U/L (0-40); Blood Urea Nitrogen 15 mg/dL (8-23); Calcium 9.2 mg/dL (8.5-10.5); Carbon Dioxide 24 mmol/L (22-29); Chloride 102 mmol/L (98-107); Globulin 3.1 g/dL (1.3-4.6); Glucose 107 mg/dL (65-115); Osmolality Calculated 283 mOsm/kg (285-295); Potassium 4.7 mmol/L (3.5-5.1); Sodium 136 mmol/L (136-145); Thyroid Stimulating Hormone 2.04 uIU/mL (0.27-4.20); Total Bilirubin 0.8 mg/dL (0.15-1.2); Total Protein 7.1 g/dL (6.6-8.7)
[2023-01-08 12:30] VITALS: BP 144/75; PULSE 63; TEMP 36.6; O2SAT 94
[2023-01-22 08:28] VITALS: BP 141/91; PULSE 79; RESP 18; TEMP 36.8; O2SAT 96
[2023-01-22 08:30] LABS: Basophils % 0.7 %; Eosinophils # 0.2 10^3/uL (0.0-0.8); Eosinophils % 4.1 %; Hematocrit 42.3 % (42.0-52.0); Hemoglobin 14.1 g/dL (11.7-16.6); Lymphocytes # 0.4 10^3/uL (0.8-4.8); Lymphocytes % 7.6 %; Mean Corpuscular HGB Conc 33.3 g/dL (30.0-36.0); Mean Corpuscular Hemoglobin 32.2 pg (28.0-34.0); Mean Corpuscular Volume 96.6 fl (80-94); Mean Platelet Volume 9.5 fL (7.4-10.4); Monocytes # 0.7 10^3/uL (0.2-0.9); Monocytes % 11.9 %; Neutrophils # 4.24 10^3/uL (1.8-7.7); Neutrophils % 75.3 %; Nucleated Red Blood Cells % 0 %; Platelet Count 206 10^3/cmm (130-400); Red Blood Count 4.38 10^6/uL (4.1-5.3); Red Cell Distribution Width 14.6 % (12.1-15.1); White Blood Count 5.6 10^3/uL (4.0-10.0)
[2023-01-22] MEDS: alteplase 1 mg/mL SDV 2 mL 2 MG INTRACATH (08:33)
--- NOTE | 2023-01-22 08:34 | PC.NURSE ---
Cathflo 2.2ml placed in port to dwell at [id number]. Jennifer Combs BSN, RN, OCN
[2023-01-22 09:00] LABS: Alanine Aminotransferase 6 U/L (0-41); Albumin Level 3.9 g/dL (3.5-5.2); Alkaline Phosphatase 53 U/L (40-130); Anion Gap 15.4 (5-19); Aspartate Amino Transferase 11 U/L (0-40); Blood Urea Nitrogen 17 mg/dL (8-23); Calcium 9.1 mg/dL (8.5-10.5); Carbon Dioxide 23 mmol/L (22-29); Chloride 101 mmol/L (98-107); Globulin 2.7 g/dL (1.3-4.6); Glucose 103 mg/dL (65-115); Osmolality Calculated 282 mOsm/kg (285-295); Potassium 4.4 mmol/L (3.5-5.1); Sodium 135 mmol/L (136-145); Thyroid Stimulating Hormone 1.11 uIU/mL (0.27-4.20); Total Bilirubin 0.6 mg/dL (0.15-1.2); Total Protein 6.6 g/dL (6.6-8.7)
[2023-01-22] MEDS: sodium chloride 0.9% 250 ML 75 ML IV (09:50)
[2023-01-22 11:33] VITALS: BP 141/74; PULSE 58; RESP 18; TEMP 36.9; O2SAT 95
== END 2023-01-22 23:59 | disposition home or self-care (01) ==
PROVIDERS: Absent Provider Radiology Radiation Oncology; PCP Family Medicine; Visit Provider Internal Medicine Hematology & Oncology
DX: Z51.12 Encounter for antineoplastic immunotherapy (principal); C34.12 Malignant neoplasm of upper lobe, left bronchus or lung; C77.8 Secondary and unspecified malignant neoplasm of lymph nodes of multiple regions; F17.210 Nicotine dependence, cigarettes, uncomplicated; Z79.899 Other long term (current) drug therapy; Z90.2 Acquired absence of lung [part of]; C34.10 Malignant neoplasm of upper lobe, unspecified bronchus or lung
CPT/HCPCS: 36415; 36593; 80053; 84443; 85025; 96413; 99214; J2997; J7050; J9173

== ENCOUNTER 2023-02-19 09:00 | Oncology outpatient (recurring) (ONCR) | payer OTHER, SELFPAY ==
[2023-02-05 08:21] LABS: Basophils # 0.1 10^3/uL (0.0-0.1); Basophils % 0.8 %; Eosinophils # 0.2 10^3/uL (0.0-0.8); Eosinophils % 2.3 %; Hematocrit 45.5 % (42.0-52.0); Lymphocytes # 0.6 10^3/uL (0.8-4.8); Mean Corpuscular Hemoglobin 31.7 pg (28.0-34.0); Mean Corpuscular Volume 96.2 fl (80-94); Mean Platelet Volume 9.6 fL (7.4-10.4); Monocytes # 0.7 10^3/uL (0.2-0.9); Monocytes % 11.1 %; Neutrophils # 4.83 10^3/uL (1.8-7.7); Neutrophils % 75.5 %; Nucleated Red Blood Cells % 0 %; Platelet Count 212 10^3/cmm (130-400); Red Blood Count 4.73 10^6/uL (4.1-5.3); Red Cell Distribution Width 14.4 % (12.1-15.1); White Blood Count 6.4 10^3/uL (4.0-10.0)
[2023-02-05 08:58] LABS: Alanine Aminotransferase 9 U/L (0-41); Albumin Level 4.3 g/dL (3.5-5.2); Alkaline Phosphatase 62 U/L (40-130); Anion Gap 13.8 (5-19); Aspartate Amino Transferase 13 U/L (0-40); Blood Urea Nitrogen 19 mg/dL (8-23); Calcium 9.1 mg/dL (8.5-10.5); Carbon Dioxide 25 mmol/L (22-29); Chloride 101 mmol/L (98-107); Globulin 2.7 g/dL (1.3-4.6); Glucose 115 mg/dL (65-115); Osmolality Calculated 283 mOsm/kg (285-295); Potassium 4.8 mmol/L (3.5-5.1); Sodium 135 mmol/L (136-145); Total Bilirubin 0.7 mg/dL (0.15-1.2)
[2023-02-05] MEDS: sodium chloride 0.9% 250 ML 75 ML IV (09:44)
[2023-02-05 11:47] VITALS: BP 158/77; PULSE 66; RESP 18; TEMP 37.1; O2SAT 97
[2023-02-19 08:42] LABS: Basophils % 0.7 %; Eosinophils # 0.2 10^3/uL (0.0-0.8); Eosinophils % 3.1 %; Hemoglobin 14.9 g/dL (11.7-16.6); Lymphocytes # 0.6 10^3/uL (0.8-4.8); Mean Corpuscular HGB Conc 33.1 g/dL (30.0-36.0); Mean Corpuscular Volume 96.6 fl (80-94); Mean Platelet Volume 9.9 fL (7.4-10.4); Monocytes # 0.7 10^3/uL (0.2-0.9); Monocytes % 11.8 %; Neutrophils # 4.29 10^3/uL (1.8-7.7); Neutrophils % 74.2 %; Nucleated Red Blood Cells % 0 %; Platelet Count 218 10^3/cmm (130-400); Red Blood Count 4.66 10^6/uL (4.1-5.3); Red Cell Distribution Width 14.5 % (12.1-15.1); White Blood Count 5.8 10^3/uL (4.0-10.0)
[2023-02-19 09:15] LABS: Alanine Aminotransferase 8 U/L (0-41); Alkaline Phosphatase 61 U/L (40-130); Anion Gap 14.6 (5-19); Aspartate Amino Transferase 15 U/L (0-40); Blood Urea Nitrogen 25 mg/dL (8-23); Calcium 9.2 mg/dL (8.5-10.5); Carbon Dioxide 25 mmol/L (22-29); Chloride 100 mmol/L (98-107); Globulin 2.9 g/dL (1.3-4.6); Glucose 95 mg/dL (65-115); Osmolality Calculated 284 mOsm/kg (285-295); Potassium 4.6 mmol/L (3.5-5.1); Sodium 135 mmol/L (136-145); Thyroid Stimulating Hormone 1.54 uIU/mL (0.27-4.20); Total Bilirubin 0.5 mg/dL (0.15-1.2); Total Protein 6.9 g/dL (6.6-8.7)
[2023-02-19 11:08] VITALS: BP 145/74; PULSE 63; RESP 18; TEMP 36.4; O2SAT 95
== END 2023-02-19 23:59 | disposition home or self-care (01) ==
PROVIDERS: Nurse Practitioner Family; Absent Provider Radiology Radiation Oncology; PCP Family Medicine; Visit Provider Internal Medicine Hematology & Oncology
DX: Z51.12 Encounter for antineoplastic immunotherapy (principal); C34.12 Malignant neoplasm of upper lobe, left bronchus or lung; C77.8 Secondary and unspecified malignant neoplasm of lymph nodes of multiple regions; F17.210 Nicotine dependence, cigarettes, uncomplicated; Z79.899 Other long term (current) drug therapy
CPT/HCPCS: 80053; 84443; 85025; 96375; 96413; 99213; J1642; J7050; J9173

== ENCOUNTER → 2023-03-16 08:22 | Outpatient (BNVA) | payer OTHER, SELFPAY | PROVIDERS: PCP Family Medicine; Visit Provider Internal Medicine Pulmonary Disease | DX: C34.90 Malignant neoplasm of unspecified part of unspecified bronchus or lung (principal); J43.2 Centrilobular emphysema; Z71.6 Tobacco abuse counseling; F17.210 Nicotine dependence, cigarettes, uncomplicated | CPT/HCPCS: 99214 ==

== ENCOUNTER 2023-03-19 08:30 | Oncology outpatient (recurring) (ONCR) | payer OTHER, SELFPAY ==
[2023-03-05 08:22] VITALS: BP 166/82; PULSE 81; RESP 18; TEMP 36.8; O2SAT 96
[2023-03-05 08:38] LABS: Basophils % 0.6 %; Eosinophils # 0.2 10^3/uL (0.0-0.8); Eosinophils % 2.8 %; Hematocrit 44.4 % (42.0-52.0); Hemoglobin 14.6 g/dL (11.7-16.6); Lymphocytes # 0.6 10^3/uL (0.8-4.8); Lymphocytes % 9.2 %; Mean Corpuscular HGB Conc 32.9 g/dL (30.0-36.0); Mean Corpuscular Hemoglobin 31.5 pg (28.0-34.0); Mean Corpuscular Volume 95.7 fl (80-94); Mean Platelet Volume 10.1 fL (7.4-10.4); Monocytes # 0.7 10^3/uL (0.2-0.9); Monocytes % 9.7 %; Neutrophils # 5.19 10^3/uL (1.8-7.7); Neutrophils % 77.4 %; Nucleated Red Blood Cells % 0 %; Platelet Count 225 10^3/cmm (130-400); Red Blood Count 4.64 10^6/uL (4.1-5.3); Red Cell Distribution Width 14.7 % (12.1-15.1); White Blood Count 6.7 10^3/uL (4.0-10.0)
[2023-03-05 09:08] LABS: Alanine Aminotransferase 10 U/L (0-41); Albumin Level 3.9 g/dL (3.5-5.2); Alkaline Phosphatase 59 U/L (40-130); Anion Gap 12.3 (5-19); Aspartate Amino Transferase 13 U/L (0-40); Blood Urea Nitrogen 16 mg/dL (8-23); Calcium 8.9 mg/dL (8.5-10.5); Carbon Dioxide 26 mmol/L (22-29); Chloride 102 mmol/L (98-107); Globulin 2.8 g/dL (1.3-4.6); Glucose 101 mg/dL (65-115); Osmolality Calculated 283 mOsm/kg (285-295); Potassium 4.3 mmol/L (3.5-5.1); Sodium 136 mmol/L (136-145); Thyroid Stimulating Hormone 1.88 uIU/mL (0.27-4.20); Total Bilirubin 0.7 mg/dL (0.15-1.2); Total Protein 6.7 g/dL (6.6-8.7)
[2023-03-05 10:55] VITALS: BP 144/78; PULSE 74; RESP 18; TEMP 36.6; O2SAT 97
[2023-03-19 08:30] VITALS: BP 154/74; PULSE 56; RESP 18; TEMP 36.4; O2SAT 94
[2023-03-19 08:44] LABS: Basophils # 0.1 10^3/uL (0.0-0.1); Basophils % 0.8 %; Eosinophils # 0.2 10^3/uL (0.0-0.8); Eosinophils % 2.4 %; Hematocrit 44.8 % (42.0-52.0); Hemoglobin 14.8 g/dL (11.7-16.6); Lymphocytes # 0.6 10^3/uL (0.8-4.8); Lymphocytes % 9.5 %; Mean Corpuscular Hemoglobin 31.9 pg (28.0-34.0); Mean Corpuscular Volume 96.6 fl (80-94); Monocytes # 0.7 10^3/uL (0.2-0.9); Monocytes % 10.7 %; Neutrophils % 76.4 %; Nucleated Red Blood Cells % 0 %; Platelet Count 230 10^3/cmm (130-400); Red Blood Count 4.64 10^6/uL (4.1-5.3); Red Cell Distribution Width 14.8 % (12.1-15.1); White Blood Count 6.5 10^3/uL (4.0-10.0)
[2023-03-19 09:24] LABS: Alanine Aminotransferase 8 U/L (0-41); Albumin Level 3.9 g/dL (3.5-5.2); Alkaline Phosphatase 70 U/L (40-130); Anion Gap 11.6 (5-19); Aspartate Amino Transferase 12 U/L (0-40); Blood Urea Nitrogen 19 mg/dL (8-23); Carbon Dioxide 26 mmol/L (22-29); Chloride 100 mmol/L (98-107); Globulin 2.7 g/dL (1.3-4.6); Glucose 97 mg/dL (65-115); Osmolality Calculated 278 mOsm/kg (285-295); Potassium 4.6 mmol/L (3.5-5.1); Sodium 133 mmol/L (136-145); Thyroid Stimulating Hormone 1.54 uIU/mL (0.27-4.20); Total Bilirubin 0.4 mg/dL (0.15-1.2); Total Protein 6.6 g/dL (6.6-8.7)
[2023-03-19] MEDS: sodium chloride 0.9% 250 ML 75 ML IV (10:28)
== END 2023-03-19 23:59 | disposition home or self-care (01) ==
PROVIDERS: Nurse Practitioner Family; Absent Provider Radiology Radiation Oncology; PCP Family Medicine; Visit Provider Internal Medicine Hematology & Oncology
DX: Z51.12 Encounter for antineoplastic immunotherapy (principal); C34.12 Malignant neoplasm of upper lobe, left bronchus or lung
CPT/HCPCS: 96413 ×2; 80053; 84443; 85025; 96375; 99213; 99214; J1642; J7050; J9173

== ENCOUNTER 2023-04-02 09:30 | Oncology outpatient (recurring) (ONCR) | payer OTHER, SELFPAY ==
[2023-04-02 09:17] VITALS: BP 153/79; PULSE 58; RESP 18; TEMP 36.8; O2SAT 98
[2023-04-02 09:32] LABS: Basophils # 0.1 10^3/uL (0.0-0.1); Basophils % 0.8 %; Eosinophils # 0.2 10^3/uL (0.0-0.8); Eosinophils % 2.8 %; Hematocrit 45.7 % (42.0-52.0); Hemoglobin 15.2 g/dL (11.7-16.6); Lymphocytes # 0.7 10^3/uL (0.8-4.8); Lymphocytes % 10.3 %; Mean Corpuscular HGB Conc 33.3 g/dL (30.0-36.0); Mean Corpuscular Hemoglobin 32.3 pg (28.0-34.0); Mean Corpuscular Volume 97.2 fl (80-94); Mean Platelet Volume 10.1 fL (7.4-10.4); Monocytes # 0.7 10^3/uL (0.2-0.9); Monocytes % 11.3 %; Neutrophils # 4.74 10^3/uL (1.8-7.7); Neutrophils % 74.2 %; Nucleated Red Blood Cells % 0 %; Platelet Count 203 10^3/cmm (130-400); Red Cell Distribution Width 14.6 % (12.1-15.1); White Blood Count 6.4 10^3/uL (4.0-10.0)
[2023-04-02 09:48] LABS: Alanine Aminotransferase 9 U/L (0-41); Albumin Level 4.2 g/dL (3.5-5.2); Alkaline Phosphatase 60 U/L (40-130); Anion Gap 11.8 (5-19); Aspartate Amino Transferase 11 U/L (0-40); Blood Urea Nitrogen 24 mg/dL (8-23); Calcium 9.1 mg/dL (8.5-10.5); Carbon Dioxide 26 mmol/L (22-29); Chloride 104 mmol/L (98-107); Globulin 2.6 g/dL (1.3-4.6); Glucose 102 mg/dL (65-115); Osmolality Calculated 288 mOsm/kg (285-295); Potassium 4.8 mmol/L (3.5-5.1); Sodium 137 mmol/L (136-145); Total Bilirubin 0.7 mg/dL (0.15-1.2); Total Protein 6.8 g/dL (6.6-8.7)
[2023-04-02] MEDS: sodium chloride 0.9% 250 ML 75 ML IV (11:39)
[2023-04-02 13:21] VITALS: BP 139/70; PULSE 57; RESP 16; TEMP 36.8; O2SAT 98
== END 2023-04-03 23:59 | disposition home or self-care (01) ==
PROVIDERS: Absent Provider Radiology Radiation Oncology; PCP Family Medicine; Visit Provider Internal Medicine Hematology & Oncology
DX: Z51.12 Encounter for antineoplastic immunotherapy (principal); C34.12 Malignant neoplasm of upper lobe, left bronchus or lung; C77.8 Secondary and unspecified malignant neoplasm of lymph nodes of multiple regions; F17.210 Nicotine dependence, cigarettes, uncomplicated; Z79.899 Other long term (current) drug therapy; J43.2 Centrilobular emphysema
CPT/HCPCS: 80053; 85025; 96413; 99214; J1642; J7050; J9173

== ENCOUNTER 2023-04-30 08:01 | Oncology outpatient (recurring) (ONCR) | payer OTHER, SELFPAY ==
[2023-04-16 09:37] VITALS: BP 160/92; PULSE 102; RESP 18; TEMP 37.1; O2SAT 96
[2023-04-16 10:21] LABS: Basophils % 0.5 %; Eosinophils # 0.1 10^3/uL (0.0-0.8); Eosinophils % 1.1 %; Hematocrit 42.8 % (42.0-52.0); Lymphocytes # 0.7 10^3/uL (0.8-4.8); Lymphocytes % 8.7 %; Mean Corpuscular HGB Conc 32.7 g/dL (30.0-36.0); Mean Corpuscular Hemoglobin 31.8 pg (28.0-34.0); Mean Corpuscular Volume 97.3 fl (80-94); Mean Platelet Volume 10.3 fL (7.4-10.4); Monocytes # 0.8 10^3/uL (0.2-0.9); Monocytes % 9.6 %; Neutrophils # 6.58 10^3/uL (1.8-7.7); Neutrophils % 79.9 %; Nucleated Red Blood Cells % 0 %; Platelet Count 241 10^3/cmm (130-400); Red Cell Distribution Width 14.5 % (12.1-15.1); White Blood Count 8.2 10^3/uL (4.0-10.0)
[2023-04-16 10:41] LABS: Alanine Aminotransferase 10 U/L (0-41); Albumin Level 3.9 g/dL (3.5-5.2); Alkaline Phosphatase 63 U/L (40-130); Anion Gap 13.4 (5-19); Aspartate Amino Transferase 13 U/L (0-40); Blood Urea Nitrogen 17 mg/dL (8-23); Calcium 8.9 mg/dL (8.5-10.5); Carbon Dioxide 24 mmol/L (22-29); Chloride 103 mmol/L (98-107); Creatinine Clr Calc Pharmacy 60.7201; Globulin 2.7 g/dL (1.3-4.6); Glucose 96 mg/dL (65-115); Osmolality Calculated 283 mOsm/kg (285-295); Potassium 4.4 mmol/L (3.5-5.1); Sodium 136 mmol/L (136-145); Thyroid Stimulating Hormone 1.38 uIU/mL (0.27-4.20); Total Bilirubin 0.5 mg/dL (0.15-1.2); Total Protein 6.6 g/dL (6.6-8.7)
[2023-04-16 13:00] VITALS: BP 124/78; PULSE 74; RESP 18; TEMP 36.6; O2SAT 98
[2023-04-30 08:08] VITALS: BMI 18.8
[2023-04-30 08:09] VITALS: BP 97/53; PULSE 98; RESP 18; TEMP 36.8; O2SAT 97
[2023-04-30 08:23] LABS: Basophils % 0.4 %; Eosinophils % 0.1 %; Hematocrit 52.4 % (42.0-52.0); Hemoglobin 17.7 g/dL (11.7-16.6); Lymphocytes # 0.9 10^3/uL (0.8-4.8); Lymphocytes % 8.5 %; Mean Corpuscular HGB Conc 33.8 g/dL (30.0-36.0); Mean Corpuscular Hemoglobin 31.8 pg (28.0-34.0); Mean Corpuscular Volume 94.1 fl (80-94); Mean Platelet Volume 9.9 fL (7.4-10.4); Monocytes # 1.1 10^3/uL (0.2-0.9); Monocytes % 11.1 %; Neutrophils # 7.97 10^3/uL (1.8-7.7); Neutrophils % 79.5 %; Nucleated Red Blood Cells % 0 %; Platelet Count 225 10^3/cmm (130-400); Red Blood Count 5.57 10^6/uL (4.1-5.3); Red Cell Distribution Width 14.7 % (12.1-15.1)
[2023-04-30 08:58] LABS: Alanine Aminotransferase 11 U/L (0-41); Albumin Level 4.3 g/dL (3.5-5.2); Alkaline Phosphatase 65 U/L (40-130); Anion Gap 19.6 (5-19); Aspartate Amino Transferase 16 U/L (0-40); Blood Urea Nitrogen 32 mg/dL (8-23); Calcium 9.5 mg/dL (8.5-10.5); Carbon Dioxide 27 mmol/L (22-29); Chloride 91 mmol/L (98-107); Globulin 3.1 g/dL (1.3-4.6); Glucose 137 mg/dL (65-115); Osmolality Calculated 285 mOsm/kg (285-295); Potassium 4.6 mmol/L (3.5-5.1); Sodium 133 mmol/L (136-145); Thyroid Stimulating Hormone 2.48 uIU/mL (0.27-4.20); Total Bilirubin 0.7 mg/dL (0.15-1.2); Total Protein 7.4 g/dL (6.6-8.7)
[2023-04-30] MEDS: sodium chloride 0.9% 500 ML IV (10:05)
[2023-04-30 11:15] VITALS: BP 129/67; PULSE 75; RESP 16; TEMP 36.8; O2SAT 95
== END 2023-05-04 23:59 | disposition home or self-care (01) ==
PROVIDERS: Nurse Practitioner Family; Absent Provider Radiology Radiation Oncology; PCP Family Medicine; Visit Provider Internal Medicine Hematology & Oncology
DX: C34.12 Malignant neoplasm of upper lobe, left bronchus or lung; C77.8 Secondary and unspecified malignant neoplasm of lymph nodes of multiple regions; F17.210 Nicotine dependence, cigarettes, uncomplicated; E86.0 Dehydration; R11.10 Vomiting, unspecified; R19.7 Diarrhea, unspecified; A05.9 Bacterial foodborne intoxication, unspecified; D75.1 Secondary polycythemia; N28.89 Other specified disorders of kidney and ureter; Z79.899 Other long term (current) drug therapy
CPT/HCPCS: 80053; 84443; 85025; 96360; 96413; 99214; J1642; J7040; J7050; J9173

== ENCOUNTER 2023-05-21 08:45 | Oncology outpatient (recurring) (ONCR) | payer OTHER, SELFPAY ==
[2023-05-07 09:10] VITALS: BP 145/78; PULSE 64; RESP 18; TEMP 36.3; O2SAT 98
[2023-05-07 09:57] LABS: Basophils # 0.1 10^3/uL (0.0-0.1); Basophils % 0.7 %; Eosinophils # 0.2 10^3/uL (0.0-0.8); Eosinophils % 2.8 %; Hematocrit 43.2 % (42.0-52.0); Hemoglobin 14.3 g/dL (11.7-16.6); Lymphocytes # 0.7 10^3/uL (0.8-4.8); Mean Corpuscular HGB Conc 33.1 g/dL (30.0-36.0); Mean Corpuscular Hemoglobin 32.3 pg (28.0-34.0); Mean Corpuscular Volume 97.5 fl (80-94); Mean Platelet Volume 10.2 fL (7.4-10.4); Monocytes # 0.9 10^3/uL (0.2-0.9); Monocytes % 12.9 %; Neutrophils # 4.85 10^3/uL (1.8-7.7); Nucleated Red Blood Cells % 0 %; Platelet Count 226 10^3/cmm (130-400); Red Blood Count 4.43 10^6/uL (4.1-5.3); Red Cell Distribution Width 14.6 % (12.1-15.1); White Blood Count 6.7 10^3/uL (4.0-10.0)
[2023-05-07 10:21] LABS: Alanine Aminotransferase 12 U/L (0-41); Albumin Level 3.9 g/dL (3.5-5.2); Alkaline Phosphatase 60 U/L (40-130); Anion Gap 13.7 (5-19); Aspartate Amino Transferase 13 U/L (0-40); Blood Urea Nitrogen 16 mg/dL (8-23); Calcium 8.9 mg/dL (8.5-10.5); Carbon Dioxide 26 mmol/L (22-29); Chloride 100 mmol/L (98-107); Globulin 2.2 g/dL (1.3-4.6); Glucose 100 mg/dL (65-115); Osmolality Calculated 281 mOsm/kg (285-295); Potassium 4.7 mmol/L (3.5-5.1); Sodium 135 mmol/L (136-145); Total Bilirubin 0.4 mg/dL (0.15-1.2); Total Protein 6.1 g/dL (6.6-8.7)
[2023-05-07 13:40] VITALS: BP 156/78; PULSE 63; RESP 18; TEMP 36.7; O2SAT 98
[2023-05-21 09:08] VITALS: BP 138/85; PULSE 68; RESP 18; TEMP 37.2; O2SAT 97
[2023-05-21 09:30] LABS: Basophils % 0.7 %; Eosinophils # 0.2 10^3/uL (0.0-0.8); Eosinophils % 3.1 %; Hematocrit 41.7 % (42.0-52.0); Hemoglobin 13.9 g/dL (11.7-16.6); Lymphocytes # 0.6 10^3/uL (0.8-4.8); Lymphocytes % 10.1 %; Mean Corpuscular HGB Conc 33.3 g/dL (30.0-36.0); Mean Corpuscular Volume 96.1 fl (80-94); Mean Platelet Volume 9.8 fL (7.4-10.4); Monocytes # 0.7 10^3/uL (0.2-0.9); Monocytes % 13.3 %; Neutrophils # 3.92 10^3/uL (1.8-7.7); Neutrophils % 72.4 %; Nucleated Red Blood Cells % 0 %; Platelet Count 223 10^3/cmm (130-400); Red Blood Count 4.34 10^6/uL (4.1-5.3); Red Cell Distribution Width 14.4 % (12.1-15.1); White Blood Count 5.4 10^3/uL (4.0-10.0)
[2023-05-21 10:00] LABS: Alanine Aminotransferase 11 U/L (0-41); Albumin Level 3.9 g/dL (3.5-5.2); Alkaline Phosphatase 58 U/L (40-130); Anion Gap 13.9 (5-19); Aspartate Amino Transferase 13 U/L (0-40); Blood Urea Nitrogen 15 mg/dL (8-23); Calcium 8.8 mg/dL (8.5-10.5); Carbon Dioxide 26 mmol/L (22-29); Chloride 99 mmol/L (98-107); Globulin 2.9 g/dL (1.3-4.6); Glucose 107 mg/dL (65-115); Osmolality Calculated 279 mOsm/kg (285-295); Potassium 4.9 mmol/L (3.5-5.1); Sodium 134 mmol/L (136-145); Thyroid Stimulating Hormone 1.69 uIU/mL (0.27-4.20); Total Bilirubin 0.7 mg/dL (0.15-1.2); Total Protein 6.8 g/dL (6.6-8.7)
== END 2023-05-21 23:59 | disposition home or self-care (01) ==
PROVIDERS: Nurse Practitioner Family; Absent Provider Radiology Radiation Oncology; PCP Family Medicine; Visit Provider Internal Medicine Medical Oncology
DX: Z51.12 Encounter for antineoplastic immunotherapy (principal); C34.12 Malignant neoplasm of upper lobe, left bronchus or lung; Z79.899 Other long term (current) drug therapy; F17.210 Nicotine dependence, cigarettes, uncomplicated
CPT/HCPCS: 80053; 84443; 85025; 96413; 99214; J1642; J7050; J9173

== ENCOUNTER 2023-06-04 08:30 | Oncology outpatient (recurring) (ONCR) | payer OTHER, SELFPAY ==
[2023-06-04 08:45] VITALS: BP 166/52; PULSE 74; RESP 16; TEMP 37.1; O2SAT 97
[2023-06-04 08:57] LABS: Basophils % 0.6 %; Eosinophils # 0.2 10^3/uL (0.0-0.8); Eosinophils % 2.4 %; Hematocrit 43.1 % (37-53); Lymphocytes # 0.7 10^3/uL (0.8-4.8); Lymphocytes % 9.8 %; Mean Corpuscular HGB Conc 33.6 g/dL (30-55); Mean Corpuscular Hemoglobin 32.1 pg (27-33); Mean Corpuscular Volume 95.4 fl (82-101); Mean Platelet Volume 9.5 fL (7.4-10.4); Monocytes # 0.7 10^3/uL (0.2-0.9); Monocytes % 10.6 %; Neutrophils % 76.3 %; Nucleated Red Blood Cells % 0 %; Platelet Count 204 10^3/cmm (157-399); Red Blood Count 4.52 10^6/uL (3.85-5.65); Red Cell Distribution Width 14.9 % (12.1-15.1); White Blood Count 6.95 10^3/uL (3.29-11.43)
[2023-06-04 09:23] LABS: Alanine Aminotransferase 7 U/L (0-41); Alkaline Phosphatase 63 U/L (40-130); Anion Gap 12.4 (5-19); Aspartate Amino Transferase 12 U/L (0-40); Blood Urea Nitrogen 19 mg/dL (8-23); Calcium 8.9 mg/dL (8.5-10.5); Carbon Dioxide 25 mmol/L (22-29); Chloride 102 mmol/L (98-107); Globulin 2.6 g/dL (1.3-4.6); Glucose 105 mg/dL (65-115); Osmolality Calculated 283 mOsm/kg (285-295); Potassium 4.4 mmol/L (3.5-5.1); Sodium 135 mmol/L (136-145); Total Bilirubin 0.6 mg/dL (0.15-1.2); Total Protein 6.6 g/dL (6.6-8.7)
[2023-06-04] MEDS: sodium chloride 0.9% 250 ML 75 ML IV (10:25)
[2023-06-04 11:53] VITALS: BP 155/72; PULSE 74; RESP 17; TEMP 36.8; O2SAT 95
== END 2023-06-04 23:59 | disposition home or self-care (01) ==
PROVIDERS: Nurse Practitioner Family; Absent Provider Radiology Radiation Oncology; PCP Family Medicine; Visit Provider Internal Medicine Medical Oncology
DX: Z51.12 Encounter for antineoplastic immunotherapy (principal); C34.12 Malignant neoplasm of upper lobe, left bronchus or lung; F17.210 Nicotine dependence, cigarettes, uncomplicated; Z79.899 Other long term (current) drug therapy
CPT/HCPCS: 80053; 85025; 96413; 99215; J1642; J7050; J9173

== ENCOUNTER 2023-06-18 08:48 | Oncology outpatient (recurring) (ONCR) | payer OTHER, SELFPAY ==
[2023-06-18 09:56] VITALS: BMI 20.5
[2023-06-18 09:58] LABS: Basophils % 0.4 %; Eosinophils # 0.2 10^3/uL (0.0-0.8); Eosinophils % 1.8 %; Hematocrit 44.3 % (37-53); Lymphocytes # 0.7 10^3/uL (0.8-4.8); Lymphocytes % 7.7 %; Mean Corpuscular HGB Conc 33.4 g/dL (30-55); Mean Corpuscular Hemoglobin 31.9 pg (27-33); Mean Corpuscular Volume 95.5 fl (82-101); Mean Platelet Volume 9.9 fL (7.4-10.4); Monocytes % 10.3 %; Neutrophils # 7.43 10^3/uL (1.8-7.7); Neutrophils % 79.4 %; Nucleated Red Blood Cells % 0 %; Platelet Count 289 10^3/cmm (157-399); Red Blood Count 4.64 10^6/uL (3.85-5.65); Red Cell Distribution Width 14.9 % (12.1-15.1); White Blood Count 9.36 10^3/uL (3.29-11.43)
[2023-06-18 10:25] LABS: Alanine Aminotransferase 11 U/L (0-41); Albumin Level 3.8 g/dL (3.5-5.2); Alkaline Phosphatase 67 U/L (40-130); Anion Gap 12.2 (5-19); Aspartate Amino Transferase 16 U/L (0-40); Blood Urea Nitrogen 20 mg/dL (8-23); Carbon Dioxide 27 mmol/L (22-29); Chloride 101 mmol/L (98-107); Globulin 3.1 g/dL (1.3-4.6); Glucose 122 mg/dL (65-115); Osmolality Calculated 284 mOsm/kg (285-295); Potassium 5.2 mmol/L (3.5-5.1); Sodium 135 mmol/L (136-145); Thyroid Stimulating Hormone 1.84 uIU/mL (0.27-4.20); Total Bilirubin 0.6 mg/dL (0.15-1.2); Total Protein 6.9 g/dL (6.6-8.7)
[2023-06-18 13:29] VITALS: BP 151/71; PULSE 74; RESP 16; O2SAT 97
== END 2023-07-04 23:59 | disposition home or self-care (01) ==
LOC: ONCMED 08:48
PROVIDERS: Absent Provider Radiology Radiation Oncology; PCP Family Medicine; Visit Provider Internal Medicine Medical Oncology
DX: Z51.12 Encounter for antineoplastic immunotherapy (principal); C34.12 Malignant neoplasm of upper lobe, left bronchus or lung; Z79.899 Other long term (current) drug therapy
CPT/HCPCS: 80053; 84443; 85025; 96413; 99215; J1642; J7050; J9173

== ENCOUNTER 2023-07-06 13:29 | Outpatient (CLI) | payer OTHER, SELFPAY ==
[2023-07-06] MEDS: iohexol 350 mg/mL 500 mL Btl (per mL) PO (15:00)
--- NOTE | 2023-07-06 15:00 | CT_ITS ---
WS: [id number] CT CHEST, ABDOMEN AND PELVIS WITH CONTRAST HISTORY: Lung Cancer Follow up TECHNIQUE: Contiguous 5 mm axial imaging performed through the chest, abdomen and pelvis with IV cont rast, oral contrast has been provided. Coronal and sagittal reformats chest. Coronal and sagittal ref ormats through the abdomen and pelvis. All CT scans at [facility] use at least one of these d ose optimization techniques: automated exposure control; mA and/or kV adjustment per patient size (in cludes targeted exams where dose is matched to clinical indication); or iterative reconstruction. CONTRAST: Omnipaque 350; 100 mL IV. DLP: 616.37 mGy.cm COMPARISON: 12/10/2022 PET/CT 03/01/[address]: Moderate pulmonary hyperexpansion and emphysematous lung disease. There is a very small francisca unt of residual groundglass attenuation and linear opacification in the periphery of the LEFT upper l obe. This is at the site of the previously treated lung neoplasm. No increasing solid nodule or new n odule. The groundglass attenuation has slightly increased. Improvement in the medial LEFT upper lobe groundglass attenuation. Long-term stability of scarlike attenuation in the central RIGHT upper lobe. No new mass or pulmonary nodule. Mild cardiac enlargement. No pericardial or pleural effusions. No mediastinal or hilar adenopathy. Sm all hiatal hernia. Advanced atherosclerotic changes within the thoracic aorta continuing into the gre at vessels. Significant coronary artery calcification. Abdomen CT: Hepatic steatosis. Normal portal vein. Mild contraction of the gallbladder. Normal spleen . Diffuse pancreatic atrophy. Pancreatic duct is mildly prominent throughout the gland. There is a lo bulated low-attenuation mass in the region of the uncinate process measuring 14 x 11 mm. Common bile duct is not dilated no adrenal mass. Bilateral renal cysts. No obstruction. There is advanced atherosclerotic calcifications of the aorta extending into the mesenteric arteries and renal arteries. Suspect areas of significant stenosis in the renal arteries and mesenteric arteri es. Very dense calcification and possibly complete obstruction or near complete obstruction at the or igin of the LEFT common iliac artery. Stomach is well distended with oral contrast. No small bowel obstruction. Diffuse constipation. Innum erable diverticula in the distal colon. There is wall thickening with mild narrowing of the lumen. No definite acute cholecystitis.. Pelvic CT: No free fluid or adenopathy. Bilateral patent inguinal canals contain fat only. Prostate e nlargement with extensive central calcifications. L4 anterolisthesis by 5 mm. IMPRESSION: 1. Mild residual scarring and groundglass attenuation in the periphery LEFT upper lobe at the site of the treated neoplasm. No new or recurrent mass or enlarging mass or nodule. 2. No mediastinal or hilar lymphadenopathy. 3. Advanced atherosclerotic plaque within the thoracic and abdominal aorta. Heavy calcified plaque co ntinues into the mesenteric, renal and iliac arteries. 4. Lobulated low-attenuation mass in the uncinate process of the pancreas. Mass measures 14 x 11 mm. There is mild diffuse pancreatic duct dilatation. Early pancreatic neoplasm is not excluded. 5. No metastatic disease to the liver or adrenal glands. 6. Severe diverticulosis in the distal colon.
[2023-07-06] MEDS: iohexol 350 mg/mL 500 mL Btl (per mL) IV (15:08)
== END 2023-07-06 13:30 | disposition home or self-care (01) ==
PROVIDERS: PCP Family Medicine; Visit Provider Internal Medicine Medical Oncology
DX: C34.12 Malignant neoplasm of upper lobe, left bronchus or lung (principal)
CPT/HCPCS: 71260; 74177; Q9967

== ENCOUNTER 2023-07-15 11:16 | Oncology outpatient (recurring) (ONCR) | payer OTHER, SELFPAY ==
[2023-07-15 11:50] VITALS: BP 159/87; PULSE 77; RESP 16; TEMP 36.8; O2SAT 98
[2023-07-15 11:55] LABS: Basophils % 0.5 %; Eosinophils # 0.1 10^3/uL (0.0-0.8); Eosinophils % 1.5 %; Lymphocytes # 0.7 10^3/uL (0.8-4.8); Lymphocytes % 9.8 %; Mean Corpuscular HGB Conc 33.2 g/dL (30-55); Mean Corpuscular Hemoglobin 31.6 pg (27-33); Mean Corpuscular Volume 95.1 fl (82-101); Mean Platelet Volume 9.7 fL (7.4-10.4); Monocytes # 0.8 10^3/uL (0.2-0.9); Monocytes % 11.3 %; Neutrophils # 5.69 10^3/uL (1.8-7.7); Neutrophils % 76.6 %; Nucleated Red Blood Cells % 0 %; Platelet Count 237 10^3/cmm (157-399); Red Blood Count 4.94 10^6/uL (3.85-5.65); Red Cell Distribution Width 14.7 % (12.1-15.1); White Blood Count 7.43 10^3/uL (3.29-11.43)
[2023-07-15 12:11] LABS: Alanine Aminotransferase 7 U/L (0-41); Albumin Level 4.4 g/dL (3.5-5.2); Alkaline Phosphatase 60 U/L (40-130); Anion Gap 12.5 (5-19); Aspartate Amino Transferase 13 U/L (0-40); Blood Urea Nitrogen 14 mg/dL (8-23); Calcium 9.4 mg/dL (8.5-10.5); Carbon Dioxide 27 mmol/L (22-29); Chloride 98 mmol/L (98-107); Globulin 2.9 g/dL (1.3-4.6); Glucose 119 mg/dL (65-115); Osmolality Calculated 278 mOsm/kg (285-295); Potassium 4.5 mmol/L (3.5-5.1); Sodium 133 mmol/L (136-145); Total Bilirubin 0.7 mg/dL (0.15-1.2); Total Protein 7.3 g/dL (6.6-8.7)
== END 2023-08-04 23:59 | disposition home or self-care (01) ==
PROVIDERS: Absent Provider Radiology Radiation Oncology; PCP Family Medicine; Visit Provider Internal Medicine Medical Oncology
DX: C34.12 Malignant neoplasm of upper lobe, left bronchus or lung (principal)
CPT/HCPCS: 36591; 80053; 85025; 99215; J1642

== ENCOUNTER 2023-12-16 15:01 | Outpatient (CLI) | payer OTHER, SELFPAY ==
--- NOTE | 2023-12-16 15:00 | CTR_ITS ---
PROCEDURE INFORMATION: Exam: CT Chest With Contrast; Diagnostic Exam date and time: 12/16/2023 4:15 PM Age: 78 years old Clinical indication: Condition or disease; Other: Lung cancer; Lung condition and disease; Cancer of the lung; Bilateral; Unspecified; Prior surgery; Surgery date: 6+ months; Surgery type: Lung, port TECHNIQUE: Imaging protocol: Diagnostic computed tomography of the chest with contrast. Radiation optimization: All CT scans at this facility use at least one of these dose optimization techniques: automated exposure control; mA and/or kV adjustment per patient size (includes targeted exams where dose is matched to clinical indication); or iterative reconstruction. Contrast material: OMNI 350; Contrast volume: 100 ml; Contrast route: INTRAVENOUS (IV); COMPARISON: CT chest abdpel w/*[id number] 07/06/2023 2:59 PM RADIATION DOSE METRICS: Total DLP (mGy-cm): 575.73 FINDINGS: Thyroid: Grossly unremarkable. Lungs: There is stable scarring/radiation change in the left upper lobe. Focus of parenchymal distortion and ground-glass in the right upper lobe, unchanged since December 2022 (image 27 of series 3). There is a 13 mm lobulated nodular opacity in the right middle lobe, which appears to be partially calcified, new since prior (image 44 of series 3). No evidence residual or recurrent neoplasm. No focal consolidation. Pleural spaces: No pleural effusion. No pneumothorax. Heart: No cardiomegaly. No pericardial effusion. There are incidental dense coronary artery calcifications with involvement of the left main. Mediastinal space: Trachea and central airways are grossly patent. No evidence of mediastinal mass or hematoma. Lymph nodes: No evidence of mediastinal or hilar adenopathy. There is an 8 mm short axis pretracheal node (image 23 of series 3), unchanged since prior. Vasculature: Borderline aneurysmal dilatation of the ascending thoracic aorta to 4.1 cm. Moderate mixed atherosclerotic plaque of the thoracic aorta. No dissection. Though this study is not tailored to evaluate for pulmonary thromboembolism, there is no evidence of PE within limitations of respiratory motion. Bones/joints: No evidence of acute fracture or aggressive osseous lesion. Old left-sided rib fractures noted. Soft tissues: No fluid collection or hematoma in the superficial soft tissues. PROCEDURE INFORMATION: Exam: CT Abdomen And Pelvis With Contrast Exam date and time: 12/16/2023 4:15 PM Age: 78 years old Clinical indication: Condition or disease; Other: Lung cancer; Lung condition and disease; Cancer of the lung; Bilateral; Unspecified; Prior surgery; Surgery date: 6+ months; Surgery type: Lung, port TECHNIQUE: Imaging protocol: Computed tomography of the abdomen and pelvis with contrast. Radiation optimization: All CT scans at this facility use at least one of these dose optimization techniques: automated exposure control; mA and/or kV adjustment per patient size (includes targeted exams where dose is matched to clinical indication); or iterative reconstruction. Contrast material: OMNI 350; Contrast volume: 100 ml; Contrast route: INTRAVENOUS (IV); COMPARISON: CT chest abdpel w/*[id number] 07/06/2023 2:59 PM RADIATION DOSE METRICS: Total DLP (mGy-cm): 575.73 FINDINGS: Liver: No focal hepatic lesion. Gallbladder and bile ducts: Unremarkable. No intra-hepatic biliary dilatation. CBD is nondilated. Pancreas: Again seen is a 16 x 13 mm soft tissue nodule along the inferior aspect of the pancreatic head, possibly a node or pancreatic lesion. Correlation with MRI of the abdomen with/without contrast is recommended if not previously characterized. Moderate pancreatic atrophy with ductal dilatation is noted. Spleen: Unremarkable. Adrenal glands: Unremarkable. Kidneys and ureters: There are simple appearing renal cysts for which dedicated imaging follow-up is not required. Otherwise no evidence of renal parenchymal abnormality. No hydronephrosis or ureteral stone. Stomach and bowel: Diverticulosis without evidence of acute diverticulitis. No bowel obstruction or perienteric inflammatory changes. Appendix: Normal appendix. Intraperitoneal space: No evidence of free air or fluid collection. Vasculature: Extensive aortobiiliac atherosclerosis without aneurysmal dilatation or dissection. The celiac trunk, SMA and SHERYL are grossly patent. There is extensive atherosclerotic plaque of the celiac trunk and SMA. No evidence of IVC thrombus. The portal vein, SMV and splenic veins are grossly patent. Lymph nodes: No gross adenopathy. Urinary bladder: Grossly unremarkable. Reproductive: Enlarged prostate measuring 5.6 cm. Consider correlation with serum laboratory findings and outpatient urologic evaluation. Patulous bilateral inguinal rings, right worse than left with protrusion of a bowel loop into the region of the right deep inguinal ring. Bones/joints: No evidence of acute fracture or aggressive osseous lesion. 4 mm grade 1 anterolisthesis of L4 on L5 secondary to severe facet arthrosis. Disc bulges and ligamentum hypertrophy results in severe central stenosis at L3-L4 and L4-L5 with likely impingement of the cauda equina nerve roots. Consider correlation with follow-up outpatient MRI to evaluate for neural impingement. 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 Soft tissues: No evidence of fluid collection or hematoma in the superficial soft tissues. CT/CT chest abdpel w/*[id number] IMPRESSION: 1. Stable exam without evidence of residual or recurrent disease. 2. Partially calcified lobulated right middle lobe nodular opacity compatible with a granuloma. IMPRESSION: 1. No evidence of metastatic disease in the abdomen or pelvis. 2. Nodular density inferior to the pancreatic head, possibly a node or pancreatic lesion. Correlation with MRI of the abdomen with/without contrast is recommended if not previously characterized.
[2023-12-16 16:13] LABS: Blood Urea Nitrogen 25 mg/dL (8-23)
[2023-12-16] MEDS: iohexol 350 mg/mL 500 mL Btl (per mL) PO (16:19)
[2023-12-16] MEDS: iohexol 350 mg/mL 500 mL Btl (per mL) IV (16:19)
== END 2023-12-16 15:02 | disposition home or self-care (01) ==
LOC: RAD 15:01
PROVIDERS: PCP Family Medicine; Visit Provider Internal Medicine Medical Oncology
DX: C34.10 Malignant neoplasm of upper lobe, unspecified bronchus or lung (principal); R93.5 Abnormal findings on diagnostic imaging of other abdominal regions, including retroperitoneum
CPT/HCPCS: 71260; 74177; 82565; 84520; Q9967

== ENCOUNTER 2024-03-24 08:54 | Oncology outpatient (recurring) (ONCR) | payer OTHER, SELFPAY ==
[2024-03-24 10:32] LABS: Basophils # 0.1 10^3/uL (0.0-0.1); Basophils % 0.6 %; Eosinophils # 0.4 10^3/uL (0.0-0.8); Eosinophils % 4.7 %; Hematocrit 35.2 % (37-53); Lymphocytes % 12.4 %; Mean Corpuscular HGB Conc 31.5 g/dL (30-55); Mean Corpuscular Hemoglobin 27.8 pg (27-33); Mean Platelet Volume 9.2 fL (7.4-10.4); Monocytes # 0.8 10^3/uL (0.2-0.9); Monocytes % 10.1 %; Neutrophils # 5.64 10^3/uL (1.8-7.7); Neutrophils % 71.9 %; Nucleated Red Blood Cells % 0 %; Platelet Count 400 10^3/cmm (157-399); White Blood Count 7.84 10^3/uL (3.29-11.43)
[2024-03-24 11:02] LABS: Alanine Aminotransferase 10 U/L (0-41); Albumin Level 3.8 g/dL (3.5-5.2); Alkaline Phosphatase 112 U/L (40-130); Anion Gap 13.6 (5-19); Aspartate Amino Transferase 13 U/L (0-40); Blood Urea Nitrogen 19 mg/dL (8-23); Calcium 8.7 mg/dL (8.5-10.5); Cancer Antigen 19 9 4.92 U/mL (0-35); Carbon Dioxide 24 mmol/L (22-29); Chloride 106 mmol/L (98-107); Globulin 3.5 g/dL (1.3-4.6); Glucose 112 mg/dL (65-115); Osmolality Calculated 291 mOsm/kg (285-295); Potassium 4.6 mmol/L (3.5-5.1); Sodium 139 mmol/L (136-145); Total Bilirubin 0.4 mg/dL (0.15-1.2); Total Protein 7.3 g/dL (6.6-8.7)
[2024-03-24 16:08] LABS: Carcinoembryonic Antigen 4.3 ng/mL (0.0-4.7)
== END 2024-04-03 23:59 | disposition home or self-care (01) ==
PROVIDERS: Internal Medicine; Absent Provider Radiology Radiation Oncology; PCP Family Medicine; Visit Provider Internal Medicine Medical Oncology
DX: C34.12 Malignant neoplasm of upper lobe, left bronchus or lung
CPT/HCPCS: 36591; 80053; 82378; 85025; 86301; 99213

== ENCOUNTER → 2024-04-04 15:17 | Outpatient (BNVA) | payer OTHER, SELFPAY | PROVIDERS: PCP Family Medicine; Visit Provider Podiatrist Foot & Ankle Surgery | DX: L60.3 Nail dystrophy (principal); I73.9 Peripheral vascular disease, unspecified | CPT/HCPCS: 11721; 99203 ==

== ENCOUNTER 2024-04-12 09:34 | Oncology outpatient (recurring) (ONCR) | payer OTHER, SELFPAY ==
--- NOTE | 2024-04-12 10:00 | PETR_ITS ---
PROCEDURE INFORMATION: Exam: PET/CT Skull Base to Mid-thigh Exam date and time: 04/12/2024 10:27 AM Age: 78 years old Clinical indication: Condition or disease; Primary cancer: Malignant neoplasm of lung; Prior surgery; Surgery date: 6+ months; Surgery type: Port, lung; Additional info: Restaging, please have appointment by 04/28 LABS AND CLINICAL REPORTS: Glucose: 120 mg/dl Treatment strategy for malignancy (PET staging): Restaging (PS) TECHNIQUE: Imaging protocol: Following at least four-hour fasting and following the injection of radiopharmaceutical, low dose CT images were obtained. Then, PET images were obtained. Attenuation corrected images were constructed using the CT scan. Fused images of PET and CT were reviewed. The standardized uptake values (SUV) reported below are maximum values within a region of interest, expressed in gm/ml. Exam includes orbital meatal line to mid-thigh. Radiopharmaceutical: 13.01 mCi F-18 FDG (Fluorodeoxyglucose), IV. Time of imaging post radiopharmaceutical administration: 1 hour Injection site: left AC COMPARISON: 1. PT PET Scan 03/01/2022 10:[address] angio chest PE protcl [id number] 03/19/2024 10:[address] head wo con* [id number] 12/27/2023 1:00 PM FINDINGS: Tubes, catheters and devices: Right-sided Port-A-Cath terminates at the superior cavoatrial junction. Brain: There is some patchy increased uptake in the region of the right occipital lobe and left cerebellum with SUV max 8.7. On the CT, there also appears to be some partially imaged low-density in the region of the left temporal lobe, which is new from head CT dated 12/27/2023. Pharynx: No abnormal uptake. Larynx: No abnormal uptake. Lungs, pleura and trachea: There is some mild FDG uptake associated with right lower lobe atelectasis with SUV max 3.0. Small right pleural effusion. There is a large right pneumothorax. There is some scarring at the site of the treated left upper lobe mass without significantly increased FDG uptake at this site. Heart: Normal physiologic uptake. Mediastinal space: No abnormal uptake. Liver: No abnormal uptake. Gallbladder and biliary ducts: No abnormal uptake. Pancreas: No abnormal uptake. Spleen: No abnormal uptake. Adrenal glands: No abnormal uptake. Kidneys and ureters: Bilateral renal cysts. No hydronephrosis. Stomach and bowel: No abnormal uptake. Reproductive: Focus of increased FDG uptake within the left aspect of the prostate gland with SUV max 4.4. 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 Lymph nodes: Similar calcific density adjacent to the pancreatic head, which may reflect a calcified lymph node. No associated increased FDG uptake. Skeleton: Some degenerative FDG uptake is seen about the right shoulder and within the cervical spine. Acute appearing right posterolateral 3rd rib fracture with increased FDG uptake with SUV max 3.6. Query acute nondisplaced right posterolateral 4th rib fracture. There is some sclerosis within several right lateral ribs without increased FDG uptake. Additional remote bilateral rib fractures are seen. Soft tissues: Sebaceous cyst within the subcutaneous soft tissues of the upper thoracic region. Right gynecomastia. PET/PET skull to thigh SUBS [id number] IMPRESSION: 1. Large right pneumothorax. 2. There is some patchy increased uptake in the region of the right occipital lobe and left cerebellum with SUV max 8.7. On the CT, there also appears to be some partially imaged low-density in the region of the left temporal lobe, which is new from head CT dated 12/27/2023. Findings raise concern for intracranial pathology, including possible metastatic disease. Recommend CT head and MRI of the brain. 3. Acute right posterolateral 3rd rib fracture. Query acute right posterolateral 4th rib fracture. 4. Focus of increased FDG uptake within the left aspect of the prostate gland. Recommend correlation with PSA and consider dedicated prostate MRI as clinically warranted.
== END 2024-05-04 23:59 | disposition home or self-care (01) ==
LOC: ONCMED 09:34 → RAD 04-14 11:55 → ONCMED 04-19 07:46
PROVIDERS: Absent Provider Radiology Radiation Oncology; PCP Family Medicine; Visit Provider Internal Medicine Medical Oncology
DX: C34.12 Malignant neoplasm of upper lobe, left bronchus or lung (principal); J93.9 Pneumothorax, unspecified; R93.0 Abnormal findings on diagnostic imaging of skull and head, not elsewhere classified; S22.31XA Fracture of one rib, right side, initial encounter for closed fracture; X58.XXXA Exposure to other specified factors, initial encounter; R93.89 Abnormal findings on diagnostic imaging of other specified body structures
CPT/HCPCS: 78815; A9552

== ENCOUNTER 2024-04-16 13:13 | Inpatient (IN) | payer OTHER, MEDICARE, SELFPAY ==
[2024-04-16] VITALS (40 sets, daily range): BP systolic 92–179; BP diastolic 54–104; PULSE 49–72; RESP 10–28; TEMP 36.6–36.8; O2SAT 91–100; BMI 18.8
--- NOTE | 2024-04-16 13:16 | XRR_ITS ---
PROCEDURE INFORMATION: Exam: XR Chest Exam date and time: 04/16/2024 1:44 PM Age: 78 years old Clinical indication: Cough and dyspnea; Prior surgery; Surgery date: 6+ months; Surgery type: Port placement; Patient HX: SOB; Cough; Lung CA TECHNIQUE: Imaging protocol: Radiologic exam of the chest. Views: 1 view. COMPARISON: CT angio chest PE protcl [id number] 03/19/2024 10:00 PM FINDINGS: Tubes, catheters and devices: Minute port catheter tip projects over the cavoatrial junction. Lungs: There are pulmonary parenchymal calcifications consistent with remote granulomatous organism exposure. There are emphysematous changes in the lungs. Pleural spaces: Small right pleural effusion with adjacent compressive atelectasis or pneumonia. Heart/Mediastinum: Cardiomegaly. Vasculature: There is calcified plaque in the aortic arch. Bones/joints: Unremarkable. XR/XR chest 1V portable [id number] IMPRESSION: Cardiomegaly with a small right pleural effusion raises concern for congestive heart failure. There is adjacent compressive atelectasis and or pneumonia at the right lung base.
--- NOTE | 2024-04-16 13:21 | W.ED.SOB ---
HPI - SOB/Dyspnea General: Chief Complaint: Shortness of Breath/Dyspnea Stated Complaint: Dr. Knight sent pt over abnormal pet scan Time Seen by Provider: 04/16/24 13:15 Source: patient Mode of arrival: ambulatory History of Present Illness: HPI Narrative: 78-year-old male with a known history of lung cancer who was recently evaluated by PET scan [address] Knight was called today to that he had a pneumothorax. Dr. Chauhan contact patient he not really been complaining any shortness of breath he has known lung cancer with Dr. Knight referred him to the emergency room on arrival here he is accompanied by his daughter. He denies any hemoptysis. [place] any chest pain. MD elicited complaint: shortness of breath Pertinent past history: COPD and other (Lung cancer) Exacerbating factors: nothing Relieving factors: nothing Associated symptoms: Reports cough; Deny abdominal pain, chest congestion, chest pain, diaphoresis, dizziness, extremity pain, fever(s), hemoptysis, lightheadedness, myalgias, nausea, orthopnea, palpitations, paresthesias, polydipsia, polyuria, rash, sense of impending doom, syncope or vomiting Treatment prior to arrival: none Review of Systems Const: Denies: fever(s), chills or diaphoresis Card: Denies: chest pain, palpitations, lightheadedness, syncope or orthopnea Resp: Denies: dyspnea, hemoptysis or chest congestion GI: Denies: abdominal pain, nausea or vomiting : Denies: dysuria, urinary frequency or urinary urgency Musc: Denies: neck pain, back pain or extremity pain Skin/Breast: Denies: rash Neuro: Denies: dizziness Endo: Denies: polyuria or polydipsia PFSH ED PFSH: Medical History (Updated 04/16/24 @ 17:15 by Kenyon Tolliver DO) Occlusion and stenosis of unspecified carotid artery Personal history of colonic polyps Lung cancer, upper lobe Hypertension Surgical History History of reduction of closed fracture left heel Family History Father Diabetes Denies family history of CAD (coronary artery disease) Clotting disorder Dementia Hyperlipidemia Psychiatric illness Chronic kidney disease (CKD) Suicide Anesthesia complication Bleeding disorder Lung disease Cancer Hypertension Stroke Social History Smoking and tobacco/nicotine status: former use of tobacco/nicotine Alcohol intake: current Alcohol intake frequency: holidays/special occasions only Alcohol type: beer Physical Exam Const: GENERAL APPEARANCE: cooperative and comfortable ORIENTATION/CONSCIOUSNESS: Yes awake HENMT: COMMON NORMALS: normocephalic, atraumatic and hearing grossly normal bilaterally HEAD & SCALP: normocephalic and atraumatic Resp: COMMON NORMALS: No retractions and No use of accessory muscles AUSCULTATION: breath sounds absent on the right Cardio: COMMON NORMALS: regular rate, regular rhythm and No murmurs present (Cardio) RATE: regular rate RHYTHM: regular rhythm GI: COMMON NORMALS: Soft to palpation and No hepatosplenomegaly present AUSCULTATION: Yes normoactive bowel sounds PALPATION: Yes Soft to palpation, No Tenderness to palpation present (GI), No Guarding due to palpation present (GI) and Yes No hepatosplenomegaly present Extremity: COMMON NORMALS: normal to inspection, capillary refill normal, no clubbing, cyanosis or edema, no calf tenderness and no pedal edema Skin: COMMON NORMALS: no rashes or lesions noted GENERAL SKIN EXAM: no rashes or lesions noted Procedures Chest Tube Chest Tube 1: Chest Tube Location: right Chest Tube Prep: Yes betadine prep Local Anesthetic: lidocaine 1% and with epi Amount of anesthesia used (mL): 6 Incision Made With: #11 blade Post Procedure: other (Occlusive adhesive dressing) Tube Drainage: none Post Procedure CXR?: Yes Patient Tolerated Procedure: Yes Progress: 13 [place] thoracic vent placed. Patient tolerated well manually removed approximately 400 to 450 mL of air via syringe with a one-way valve then hooked to a pleura seal it both for few minutes then remained sealed. Chest x-ray shows resolution of nearly the entire pneumothorax except a small apical Procedural Sedation Indication: other (Placement of thoracic vent) ASA Class: II Preparation: cardiac cath rn applied, pulse oximeter, supplemental O2 applied, suction/airway equipment at bedside and IV secured Ketamine: IV Ketamine dose (mg): 100 Course Vital Signs: Vital signs: Vital Signs Temperature 97.8 F 04/16/24 13:17 Pulse Rate 49 L 04/16/24 16:50 Respiratory Rate 17 04/16/24 16:50 Blood Pressure 153/72 04/16/24 16:50 Pulse Oximetry 94 04/16/24 16:50 Oxygen Delivery Me thod Room Air 04/16/24 13:17 MDM - SOB/Dyspnea Medical Decision Making Contact Dr. Knight send the patient here is advised that the patient will be admitted. Dr. Ryder was willing to monitor the pneumothorax and the thoracic vent. We had some concern that the pneumothorax may be loculated due to his cancer however after placement thoracic vent it resolved. Will admit to Dr. John consult surgery Dr. Ryder for management of the chest tube Medical Records I reviewed the patient's medical records. Lab Data I reviewed the patient's lab results. 04/16/24 13:37 04/16/24 13:37 Labs/Radiology: Radiology Impressions Chest X-Ray 04/16/24 14:52 IMPRESSION: 1. Interval placement of a right-sided chest tube with improvement of the right pneumothorax. A small apical right pneumothorax remains. 2. There is a mildly displaced fracture through the lateral aspect of the right 3rd rib. Laboratory Results WBC 7.90 10^3/uL (3.29-11.43) 04/16/24 13:37 RBC 4.69 10^6/uL (3.85-5.65) 04/16/24 13:37 Hgb 13.00 g/dL (11.27-16.99) 04/16/24 13:37 Hct 40.8 % (37-53) 04/16/24 13:37 MCV 87.0 fl (82-101) 04/16/24 13:37 MCH 27.7 pg (27-33) 04/16/24 13:37 MCHC 31.9 g/dL (30-55) 04/16/24 13:37 RDW 17.2 % (12.1-15.1) H 04/16/24 13:37 Plt Count 330 10^3/cmm (157-399) 04/16/24 13:37 MPV 9.1 fL (7.4-10.4) 04/16/24 13:37 Neut % (Auto) 69.2 % 04/16/24 13:37 Lymph % (Auto) 14.3 % 04/16/24 13:37 Garrett % (Auto) 9.9 % 04/16/24 13:37 Eos % (Auto) 5.7 % 04/16/24 13:37 Baso % (Auto) 0.6 % 04/16/24 13:37 Neut # (Auto) 5.47 10^3/uL (1.8-7.7) 04/16/24 13:37 Lymph # (Auto) 1.1 10^3/uL (0.8-4.8) 04/16/24 13:37 Garrett # (Auto) 0.8 10^3/uL (0.2-0.9) 04/16/24 13:37 Eos # (Auto) 0.5 10^3/uL (0.0-0.8) 04/16/24 13:37 Baso # (Auto) 0.1 10^3/uL (0.0-0.1) 04/16/24 13:37 Nucleated RBC % (auto) 0 % 04/16/24 13:37 Nucleated RBCs # 0.0 /100WBC 04/16/24 13:37 Sodium 137 mmol/L (136-145) 04/16/24 13:37 Potassium 4.9 mmol/L (3.5-5.1) 04/16/24 13:37 Chloride 101 mmol/L (98-107) 04/16/24 13:37 Carbon Dioxide 23 mmol/L (22-29) 04/16/24 13:37 Anion Gap 17.9 (5-19) 04/16/24 13:37 BUN 30 mg/dL (8-23) H 04/16/24 13:37 Creatinine 1.1 mg/dL (0.7-1.2) 04/16/24 13:37 GFR Calculation Not Reportable 04/16/24 13:37 Glucose 118 mg/dL (65-115) H 04/16/24 13:37 Calculated Osmolality 291 mOsm/kg (285-295) 04/16/24 13:37 Calcium 9.1 mg/dL (8.5-10.5) 04/16/24 13:37 Total Bilirubin 0.3 mg/dL (0.15-1.2) 04/16/24 13:37 AST 12 U/L (0-40) 04/16/24 13:37 ALT 8 U/L (0-41) 04/16/24 13:37 Alkaline Phosphatase 136 U/L (40-130) H 04/16/24 13:37 Total Protein 7.3 g/dL (6.6-8.7) 04/16/24 13:37 Albumin 3.8 g/dL (3.5-5.2) 04/16/24 13:37 Globulin 3.5 g/dL (1.3-4.6) 04/16/24 13:37 Procalcitonin 0.04 ng/mL (0-0.5) 04/16/24 13:37 All radiology interpretation(s) finalized by discharge Discharge Plan Discharge Patient Disposition: Admitted As Inpatient Admit Provider: Layo John Clinical Impression: Pneumothorax, right, Lung cancer, upper lobe COPD (chronic obstructive pulmonary disease) Qualifiers: COPD type: emphysema Emphysema type: centrilobular Qualified Code(s): J43.2 - Centrilobular emphysema Condition: Stable Coding Level of Care Code ED [employer] 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
--- NOTE | 2024-04-16 13:35 | PC.NURSE ---
Upon pt arrival, @1320 approx-- bilateral 18G IV's obtained, pt placed on case monitor and 2L NC per Dr. Tolliver. Informed consent signed for conscious sedation and thora-vent placement. suction set up at bedside.
--- NOTE | 2024-04-16 13:39 | PC.NURSE ---
@1338: Crash cart checked and up to date, adult ambu-bag available at bedside
[2024-04-16 13:43] LABS: Basophils # 0.1 10^3/uL (0.0-0.1); Basophils % 0.6 %; Eosinophils # 0.5 10^3/uL (0.0-0.8); Eosinophils % 5.7 %; Hematocrit 40.8 % (37-53); Lymphocytes # 1.1 10^3/uL (0.8-4.8); Lymphocytes % 14.3 %; Mean Corpuscular HGB Conc 31.9 g/dL (30-55); Mean Corpuscular Hemoglobin 27.7 pg (27-33); Mean Platelet Volume 9.1 fL (7.4-10.4); Monocytes # 0.8 10^3/uL (0.2-0.9); Monocytes % 9.9 %; Neutrophils # 5.47 10^3/uL (1.8-7.7); Neutrophils % 69.2 %; Nucleated Red Blood Cells % 0 %; Platelet Count 330 10^3/cmm (157-399); Red Blood Count 4.69 10^6/uL (3.85-5.65); Red Cell Distribution Width 17.2 % (12.1-15.1)
[2024-04-16 13:59] LABS: Alanine Aminotransferase 8 U/L (0-41); Albumin Level 3.8 g/dL (3.5-5.2); Alkaline Phosphatase 136 U/L (40-130); Anion Gap 17.9 (5-19); Aspartate Amino Transferase 12 U/L (0-40); Blood Urea Nitrogen 30 mg/dL (8-23); Calcium 9.1 mg/dL (8.5-10.5); Carbon Dioxide 23 mmol/L (22-29); Chloride 101 mmol/L (98-107); Creatinine Clr Calc Pharmacy 46.3902; Globulin 3.5 g/dL (1.3-4.6); Glucose 118 mg/dL (65-115); Osmolality Calculated 291 mOsm/kg (285-295); Potassium 4.9 mmol/L (3.5-5.1); Sodium 137 mmol/L (136-145); Total Bilirubin 0.3 mg/dL (0.15-1.2); Total Protein 7.3 g/dL (6.6-8.7)
[2024-04-16] MEDS: lidocaine 1% INJ 10 mL (per mL) 20 ML IM (14:44)
[2024-04-16] MEDS: ketamine 100 mg/mL Inj 5 mL IVP (14:46)
--- NOTE | 2024-04-16 14:52 | XRR_ITS ---
PROCEDURE INFORMATION: Exam: XR Chest Exam date and time: 04/16/2024 2:53 PM Age: 78 years old Clinical indication: Device placement; Chest tube; Additional info: Post thoravent TECHNIQUE: Imaging protocol: Radiologic exam of the chest. Views: 1 view. COMPARISON: CR (CHEST, ) 04/16/2024 1:44 PM FINDINGS: Tubes, catheters and devices: Catheter tip projects over the cavoatrial junction. Interval placement of a right-sided chest tube. Lungs: Streaky opacities at the right lung base may represent scarring and or atelectasis. Pleural spaces: There is a small apical right pneumothorax, improved when compared to the prior study. Heart/Mediastinum: Cardiomegaly. Vasculature: There is calcified plaque in the aortic arch. Bones/joints: There is a mildly displaced fracture through the lateral aspect of the right 3rd rib. This region was not as well seen on the prior study. XR/XR chest 1V portable [id number] IMPRESSION: 1. Interval placement of a right-sided chest tube with improvement of the right pneumothorax. A small apical right pneumothorax remains. 2. There is a mildly displaced fracture through the lateral aspect of the right 3rd rib.
--- NOTE | 2024-04-16 15:25 | PC.NURSE ---
Conscious Sedation: (see nurse note for set up prior to) Dr. Tolliver, this nurse, x2 ED nurses, Respiratory Therapist at bedside. 2L NC increased to 5L NC. Time-Out: 1445 Start Time: 1446 Stop Time: 1457 @1445: 112/59, 56 HR, 95% on 5L NC, 18 RR @1446: 100mg Ketamine administered IVP @1450: Uresil placed; 119/59, 61 HR, 94% on 5L NC, 17 RR @1452: Uresil connected to Pleuravac (Thora-Vent) @1455: 155/91, 67 HR, 98% on 5L NC, 24 RR @1456: X-Ray confirmed placement of Uresil @1500: 156/75, 69 HR, 98% on 5L NC, 20 RR @1502: Pleuravac (Thora-Vent) connected to 10mm/Hg wall suction, intermittent bubbling present in suction control chamber, no bubbling noted to water seal chamber--tidaling noted to water seal chamber; 160/104, 69 HR, 96% on 2L NC @1505: 151/98, 67 HR, 96% 2L NC @1510: 157/68, 63 HR, 97% 1L NC, 27 RR @1525: decreased pt to room air, oxygen saturation currently 93% pt alert, not orient at this time. pt does have baseline dementia but normally alert to self, place, and situation.
--- NOTE | 2024-04-16 15:52 | P.HP_ITS ---
Providers/Chief Complaint 2 Primary Care Provider: Alexis Walker Chief Complaint: Dr. Knight sent pt over abnormal pet scan History of Present Illness Brayan Wheeler is a 78 year old male with past medical history of lung cancer, CVA, dementia, hypertension, who was sent into the ER today by the oncology office. Patient apparently underwent regular follow-up PET scan on 04/12 on which he was found to have a large right-sided pneumothorax along with right third and fourth rib fracture. Patient on presentation to the ER was on room air. Patient had a Thora vent placed in the ER by the ER physician which she tolerated well. History taken both by the patient and patient's daughter over the phone. Patient has not had any difficulty in breathing, chest pain, nausea, vomiting, cough more than usual. As per daughter patient did fall out of chair around 2 weeks ago. As per the daughter patient also at baseline is forgetful since his stroke back in December. Review of Systems 2 General: Reports: 10 or more systems reviewed and unremarkable except in HPI and below Const: Denies: fever(s), chills, body aches, change in appetite, change in weight, malaise, night sweats, diaphoresis, change in sleep pattern, daytime sleepiness or snoring Eyes: Denies: change in vision, blurry vision, photophobia, eye discomfort or eye discharge ENMT: Denies: throat pain, enlarged tonsils, hoarseness, mouth pain, oral sores, dry mouth, tinnitus, nasal congestion or post nasal drip Card: Denies: chest pain, palpitations, irregular heart rhythm, edema, swelling of feet/ankles, lightheadedness, syncope, pre-syncope, dyspnea on exertion, orthopnea, leg pain with exertion or acrocyanosis Resp: Denies: dyspnea, productive cough, non-productive cough, wheezing, stridor, pain on inspiration, change in phlegm color, hemoptysis or chest congestion GI: Denies: abdominal pain, nausea, vomiting, hematemesis, coffee ground emesis, dysphagia, heartburn, diarrhea, constipation, bloating, GI cramping, change in bowel habits, pain on defecation, hematochezia or melena : Denies: flank pain, difficulty urinating, dysuria, urinary frequency, urinary urgency, urinary hesitancy, urinary dribbling, difficulty starting urination, change in urine stream, nocturia or hematuria Musc: Denies: neck pain, back pain, extremity pain, joint pain, joint swelling, joint redness, joint stiffness or limited range of motion Neuro: Denies: headache(s), numbness in extremities, weakness in extremities, sensory changes, lack of coordination, difficulty walking, frequent falls, dizziness, vertigo, confusion, Slurred speech present, difficulty communicating thoughts or seizure-like activity Psych: Denies: anxiety, depression, mood swings, panic attacks, hopelessness or irritability Endo: Denies: polyuria, polydipsia, tired all the time, cold intolerance, excessive sweating, flushing or heat intolerance Duglas/Lymph: Denies: easy bruising or easy bleeding All/Imm: Denies: tongue swelling, facial swelling or acute wheezing Medications/Allergies Home Medications Medication Instructions Recorded Confirmed Last Taken Type lisinopril 10 mg tablet 10 mg PO DAILY 04/02/22 04/04/24 04/14/22 History folic acid 20 mg capsule 20 mg PO DAILY 03/19/23 04/04/24 Unknown History acetaminophen 325 mg capsule 325 mg PO QID PRN 03/24/24 04/04/24 Unknown History aspirin 325 mg tablet 325 mg PO DAILY 03/24/24 04/04/24 Unknown History atorvastatin 80 mg tablet 80 mg PO DAILY 03/24/24 04/04/24 Unknown History cefdinir 300 mg capsule 300 mg PO BID 03/24/24 04/04/24 Unknown History coenzyme Q10 100 mg capsule 100 mg PO DAILY 03/24/24 04/04/24 Unknown History docusate sodium 100 mg capsule 100 mg PO DAILY 03/24/24 04/04/24 Unknown History guaifenesin 600 mg tablet, 600 mg PO BID 03/24/24 04/04/24 Unknown History extended release 12 hr (Mucinex) metoprolol succinate 25 mg 12.5 mg PO DAILY 03/24/24 04/04/24 Unknown History tablet,extended release 24 hr pantoprazole 20 mg tablet,delayed 20 mg PO DAILY 03/24/24 04/04/24 Unknown History release polyethylene glycol 3350 17 4 g PO DAILY 03/24/24 04/04/24 Unknown History gram/dose oral powder (Miralax) Allergies Allergy/AdvReac Type Severity Reaction Status Date / Time No Known Allergies Allergy Verified 04/04/24 15:28 PFSH Acute 2 PFSH: Medical History (Updated 04/16/24 @ 17:28 by Layo John MD) Dementia CVA (cerebral vascular accident) Occlusion and stenosis of unspecified carotid artery Personal history of colonic polyps Lung cancer, upper lobe Hypertension Surgical History History of reduction of closed fracture left heel Family History Father Diabetes Denies family history of CAD (coronary artery disease) Clotting disorder Dementia Hyperlipidemia Psychiatric illness Chronic kidney disease (CKD) Suicide Anesthesia complication Bleeding disorder Lung disease Cancer Hypertension Stroke Social History Smoking and tobacco/nicotine status: former use of tobacco/nicotine Alcohol intake: current Alcohol intake frequency: holidays/special occasions only Alcohol type: beer Vitals/I&O/Wt Last Vital Signs Temp 97.8 F 04/16/24 13:17 Pulse 58 L 04/16/24 15:45 Resp 17 04/16/24 15:45 BP 137/59 04/16/24 15:45 Pulse Ox 97 04/16/24 15:45 O2 Del Method Room Air 04/16/24 13:17 Weight last 48 hrs Weight 61.235 kg Physical Exam 2 Narrative: General: No acute distress, AO x2-3, forgetful HEENT: PERRLA, pupils bilaterally equal and reactive Chest: Normal vesicular breath sounds, no added sounds, equal good air entry bilaterally CVS: S1-S2 regular, no murmurs, no tachycardia, no gallops, no rubs Abdomen: Soft, nontender, no organomegaly, bowel sounds present Neuro: No focal deficits, no facial deformity, AO x3, power 5/5 in all limbs Data 04/16/24 13:37 04/16/24 13:37 A&P Assessment and plan (1) Pneumothorax, right: Most likely traumatic in nature post fall 2 weeks ago. Thora vent placed in the ER. Post x-ray shows almost complete resolution of pneumothorax. Oxygen supplementation keeping saturation over 90%. Repeat chest x-ray in AM. Dr. Ryder from surgery consulted from the ER. He has agreed to follow-up and manage the chest tube. Pulmicort twice daily, DuoNebs every 6 hour. Check sputum culture, urine bacterial antigen. Hold off any antibiotics for now. (2) Rib fracture: Incentive spirometry. Pain management. (3) Lung cancer, upper lobe: (4) COPD (chronic obstructive pulmonary disease): Qualifiers: COPD type: emphysema Emphysema type: centrilobular Qualified Code(s): J43.2 - Centrilobular emphysema (5) PAD (peripheral artery disease): Continue with home dose of aspirin, statin. Check A1c, lipid panel. (6) Hypertension: Goal blood pressure less than 140/90 mmHg. Continue with home dose of lisinopril and metoprolol. Uptitrate as for goal blood pressure. (7) Dementia: Plan Current smoker. Counseled detail regarding against smoking. Nicotine patch if needed. CODE STATUS: Discussed in detail with the patient and patient's daughter at 2 separate occasions. Patient's daughter and will be the DPOA. Full code. Heparin 5000 every 12 hourly for DVT prophylaxis Protonix for PUD prophylaxis Attestations 2 Medical Necessity Statement*: Admission for more than 2 midnights for management of traumatic pneumothorax, rib fracture in a patient with history of lung cancer Diagnoses Pneumothorax, right J93.9 Rib fracture S22.39XA Lung cancer, upper lobe C34.10 Centrilobular emphysema J43.2 COPD type: emphysema Emphysema type: centrilobular PAD (peripheral artery disease) I73.9 Hypertension I10 Dementia F03.90
[2024-04-16 16:19] LABS: Procalcitonin 0.04 ng/mL (0-0.5)
--- NOTE | 2024-04-16 17:47 | ECG_ITS ---
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 Measurements Intervals [place] Rate: 55 P: 28 NV: 195 QRS: 15 QRSD: 117 T: 90 QT: 434 QTc: 418 Interpretive Statements SINUS BRADYCARDIA MODERATE INTRAVENTRICULAR CONDUCTION DELAY [110+ ms QRS DURATION] MODERATE VOLTAGE CRITERIA FOR LVH, CONSIDER NORMAL VARIANT [MEETS CRITERIA IN ONE OF: R(aVL), S(V1), R(V5), R(V5/V6)+S(V1)] NONSPECIFIC ST & T-WAVE ABNORMALITY No previous ECG available for comparison Electronically Signed On 04-17-2024 13:29:44 CDT by Moreno Thayer M.D. [email or web address]/store/OM/[id number]
[2024-04-16] MEDS: heparin 5,000 unit/mL INJ 1 mL 5000 UNIT SUBCUT (17:55)
[2024-04-16] MEDS: guaiFENesin 600 mg Tablet PO (17:55)
[2024-04-16 18:01] LABS: Iron 36 ug/dL (59-158); Percent Saturation 14.5 % (20-50); Thyroid Stimulating Hormone 1.83 uIU/mL (0.27-4.20); Total Iron Binding Capacity 247 mcg/dl; Unsaturated Iron Binding 211 ug/dL (112-347); Vitamin B12 532 pg/mL (232-1245)
[2024-04-16] MEDS: budesonide 0.5 mg/2 mL Neb INHALATION (20:09)
[2024-04-16] MEDS: ipratropium-albuterol 3 mL Neb INHALATION (20:09)
--- NOTE | 2024-04-16 20:42 | PC.NURSE ---
Patient did not appear to have any difficulty chewing or swallowing while eating dinner, however, daughter Beatriz states that patient probably needs a soft mechanical diet and thickened liquids. Admission assessment and med rec completed via telephone with patient's daughter, Rosalind. Patient confused and only oriented to self. Bed alarm set. One-on-one sitter placed at bedside to prevent patient from pulling out thoravent. Patient noted to have severe right-sided weakness. Daughter, Rosalind states that the patient has had this since his stroke in December.
[2024-04-17] VITALS (15 sets, daily range): BP systolic 99–171; BP diastolic 54–76; PULSE 55–74; RESP 14–19; TEMP 36.4–36.5; O2SAT 92–99
[2024-04-17] MEDS: ipratropium-albuterol 3 mL Neb INHALATION ×4 (02:18→19:53)
[2024-04-17 04:09] LABS: Basophils # 0.1 10^3/uL (0.0-0.1); Basophils % 0.6 %; Eosinophils # 0.3 10^3/uL (0.0-0.8); Eosinophils % 3.7 %; Hematocrit 45.6 % (37-53); Lymphocytes # 1.1 10^3/uL (0.8-4.8); Lymphocytes % 11.6 %; Mean Corpuscular HGB Conc 30.9 g/dL (30-55); Mean Corpuscular Volume 87.2 fl (82-101); Mean Platelet Volume 9.5 fL (7.4-10.4); Monocytes # 0.7 10^3/uL (0.2-0.9); Neutrophils # 6.86 10^3/uL (1.8-7.7); Neutrophils % 75.8 %; Nucleated Red Blood Cells % 0 %; Platelet Count 350 10^3/cmm (157-399); Red Blood Count 5.23 10^6/uL (3.85-5.65); Red Cell Distribution Width 17.1 % (12.1-15.1); White Blood Count 9.04 10^3/uL (3.29-11.43)
[2024-04-17 04:18] LABS: Estmated Average Glucose 131; Hemoglobin A1C 6.2 % (4.0-6.0)
[2024-04-17 04:41] LABS: Chol HDL Ratio 6.16 mg/dL (1.0-5.00); Cholesterol 228 mg/dL (0-200); HDL Cholesterol 37 mg/dL (60-100); LDL Cholesterol Calculated 163 mg/dL (50-129); LDL HDL Ratio 4.41 RATIO (0.00-3.22); Procalcitonin 0.02 ng/mL (0-0.5); Triglycerides 141 mg/dL (0-150)
[2024-04-17 04:42] LABS: Alanine Aminotransferase 9 U/L (0-41); Albumin Level 3.8 g/dL (3.5-5.2); Alkaline Phosphatase 139 U/L (40-130); Anion Gap 16.5 (5-19); Aspartate Amino Transferase 14 U/L (0-40); Blood Urea Nitrogen 25 mg/dL (8-23); Calcium 9.6 mg/dL (8.5-10.5); Carbon Dioxide 24 mmol/L (22-29); Chloride 102 mmol/L (98-107); Creatinine Clr Calc Pharmacy 56.6991; Glucose 123 mg/dL (65-115); Magnesium 2.2 mg/dL (1.7-2.3); Osmolality Calculated 292 mOsm/kg (285-295); Phosphorus 3.6 mg/dL (2.5-4.5); Potassium 4.5 mmol/L (3.5-5.1); Sodium 138 mmol/L (136-145); Total Bilirubin 0.3 mg/dL (0.15-1.2); Total Protein 7.8 g/dL (6.6-8.7)
[2024-04-17 04:54] LABS: Folate Level > 20.0 ng/mL (4.5-32.2)
--- NOTE | 2024-04-17 05:54 | PC.NURSE ---
Patient has not attempted to touch thoravent. One-on-one sitter removed from bedside. Bed alarm set.
--- NOTE | 2024-04-17 06:00 | XRR_ITS ---
PROCEDURE INFORMATION: Exam: XR Chest Exam date and time: 04/17/2024 8:38 AM Age: 78 years old Clinical indication: Device placement; Chest tube; Additional info: Pneumothorax TECHNIQUE: Imaging protocol: Radiologic exam of the chest. Views: 1 view. COMPARISON: CR (CHEST, ) 04/16/2024 2:53 PM FINDINGS: Tubes, catheters and devices: There is a medication port on the right with its tip overlying the SVC. There is a small bore chest tube present on the right. Lungs: There is airspace disease at the right lung base which may reflect atelectasis or infiltrate. Pleural spaces: There is a small right pleural effusion. Tiny residual pneumothorax persists unchanged. Heart/Mediastinum: Heart size is normal. There is calcified plaque involving the aorta. Bones/joints: Right 3rd rib fracture is again identified. XR/XR chest 1V portable [id number] IMPRESSION: 1. Small right pleural effusion. 2. Tiny residual right apical pneumothorax. 3. Airspace disease right lung base.
--- NOTE | 2024-04-17 08:40 | P.CONIM_ITS ---
Providers/Reason For Consult 2 Consulting Physician/Specialty*: Dr. Dionisio Ryder, DO/General surgery Reason for Consult*: Right-sided pneumothorax Attending Physician: Layo John MD Primary Care Provider: Alexis Walker History of Present Illness History of Present Illness Brayan Wheeler is a 78 year old male with with right upper lobe lung cancer presented to the hospital following a PET scan in which a right-sided pneumothorax was identified. PET scan was performed 5 days ago. Patient denies any difficulty breathing. Thoravent was placed by the emergency room. Chest tube has been placed to seal. Chest x-ray showed no further pneumothorax. Patient denies any pain or other symptoms. No difficulty breathing. Review of Systems 2 General: Reports: 10 or more systems reviewed and unremarkable except in HPI and below Medications/Allergies Home Medications Medication Instructions Recorded Confirmed Last Taken Type lisinopril 10 mg tablet 10 mg PO DAILY 04/02/22 04/16/24 04/14/22 History coenzyme Q10 100 mg capsule 100 mg PO DAILY 03/24/24 04/16/24 Unknown History docusate sodium 100 mg capsule 100 mg PO BID 03/24/24 04/16/24 Unknown History guaifenesin 600 mg tablet, 600 mg PO BID PRN Congestion 03/24/24 04/16/24 Unknown History extended release 12 hr (Mucinex) metoprolol succinate 25 mg 12.5 mg PO BID 03/24/24 04/16/24 Unknown History tablet,extended release 24 hr pantoprazole 20 mg tablet,delayed 20 mg PO BID 03/24/24 04/16/24 Unknown History release aspirin 81 mg chewable tablet 81 mg PO DAILY 04/16/24 04/16/24 Unknown History ferrous sulfate 325 mg (65 mg 325 mg PO BID 04/16/24 04/16/24 Unknown History iron) tablet folic acid 0.8 mg capsule 0.4 mg PO DAILY 04/16/24 04/16/24 Unknown History multivitamin 1 tab PO DAILY 04/16/24 04/16/24 Unknown History thiamine HCl (vitamin B1) 100 mg 100 mg PO DAILY 04/16/24 04/16/24 Unknown History tablet Allergies Allergy/AdvReac Type Severity Reaction Status Date / Time No Known Allergies Allergy Verified 04/04/24 15:28 Current Medications Generic Name Dose Route Start Last Admin Trade Name Freq PRN Reason Stop Dose Admin Albuterol/Ipratropium 3 ml 04/16/24 20:00 04/18/24 01:25 Ipratropium-Albuterol 3 Ml Neb INHALATION 3 ml Q6H.RESP MARYA Administration Aspirin 325 mg 04/17/24 09:00 04/17/24 09:20 Aspirin 325 Mg Tablet PO 325 mg DAILY MARYA Administration Atorvastatin Calcium 40 mg 04/17/24 09:00 04/17/24 09:20 Atorvastatin 40 Mg Tablet PO 40 mg DAILY MARYA Administration Budesonide 0.5 mg 04/16/24 20:00 04/17/24 19:53 Budesonide 0.5 Mg/2 Ml Neb INHALATION 0.5 mg BID.RESPIRATORY MARYA Administration Docusate Sodium 100 mg 04/17/24 09:00 04/17/24 09:20 Docusate Sodium 100 Mg Capsule PO 100 mg DAILY MARYA Administration Guaifenesin 600 mg 04/16/24 18:00 04/17/24 17:08 Guaifenesin 600 Mg Tablet PO 600 mg BID MARYA Administration Heparin Sodium (Porcine) 5,000 unit 04/17/24 09:00 04/17/24 21:41 Heparin 5,000 Unit/Ml Inj 1 Ml SUBCUT 5,000 unit Q12H MARYA Administration Lisinopril 10 mg 04/17/24 09:00 04/17/24 09:20 Lisinopril 10 Mg Tablet PO 10 mg DAILY MARYA Administration Pantoprazole Sodium 40 mg 04/17/24 09:00 04/17/24 09:[address] 40 Mg Tablet PO 40 mg DAILY MARYA Administration PFSH Acute 2 PFSH: Medical History Dementia CVA (cerebral vascular accident) Occlusion and stenosis of unspecified carotid artery Personal history of colonic polyps Lung cancer, upper lobe Hypertension Surgical History History of reduction of closed fracture left heel Family History Father Diabetes Denies family history of CAD (coronary artery disease) Clotting disorder Dementia Hyperlipidemia Psychiatric illness Chronic kidney disease (CKD) Suicide Anesthesia complication Bleeding disorder Lung disease Cancer Hypertension Stroke Social History Smoking and tobacco/nicotine status: former use of tobacco/nicotine Alcohol intake: current Alcohol intake frequency: holidays/special occasions only Alcohol type: beer Vitals/I&O/Wt Last Vital Signs Temp 97.8 F 04/18/24 04:00 Pulse 61 04/18/24 04:00 Resp 18 04/18/24 04:00 BP 122/65 04/18/24 04:00 Pulse Ox 99 04/18/24 04:00 O2 Del Method Nasal Cannula 04/18/24 04:00 O2 Flow Rate 3 04/18/24 04:00 FiO2 3 04/18/24 01:25 04/17/24 04/17/24 04/18/24 14:59 22:59 06:59 Intake Total 960 / 960 120 / 1080 120 / 1200 Output Total 300 / 303 Balance 960 / 960 117 / 1077 -180 / 897 Weight last 48 hrs Weight 133 lb 14.4 oz Weight 132 lb 1 oz Weight 135 lb Weight 135 lb Physical Exam 2 Narrative: General : Patient is well developed , no acute distress, oriented x3 Head : Normal cephalic, a-traumatic. Ears : Pinnae and external canal are normal. Hearing is normal. Eyes : PERRLA, Sclera and injection are normal. No conjunctival discharge. Nose : Mucous membranes are without erythema. Throat : buccal mucosa is normal, gums are without significant recession or hypertrophy. Lungs : Equal chest rise bilaterally, no use of accessory muscles, trachea is midline. Right sided Thoravent in place without evidence of air leak Cor : Rate and rhythm are normal. Abdomen : Soft, ND, NT, no g/r/m Extremities : No edema, no cyanosis or clubbing, dorsalis pedis pulses are present bilaterally, non-tender to palpation of calves. Upper extremities are normal bilaterally. Back : non-tender to palpation, no CVA tenderness. Neuro : CN II - XII intact, Upper and lower extremities have equal and full strength Data 04/18/24 04:55 04/17/24 03:01 Micro: Microbiology 04/16/24 17:05 Gram Stain - Final Sputum - Expectorated Sputum A&P Assessment and plan (1) Lung cancer, upper lobe: (2) Rib fracture: (3) Pneumothorax, right: Plan Keep Thoravent to seal Repeat chest x-ray in the morning I will remove the Thora vent if no recurrence of pneumothorax tomorrow Medical management per hospitalist Coding Level of Care Code 02606 Diagnoses Lung cancer, upper lobe C34.10 Rib fracture S22.39XA Pneumothorax, right J93.9
[2024-04-17] MEDS: budesonide 0.5 mg/2 mL Neb INHALATION ×2 (09:00→19:53)
[2024-04-17] MEDS: atorvastatin 40 mg Tablet PO (09:20)
[2024-04-17] MEDS: lisinopril 10 mg Tablet PO (09:20)
[2024-04-17] MEDS: pantoprazole DR 40 mg Tablet PO (09:20)
[2024-04-17] MEDS: guaiFENesin 600 mg Tablet PO ×2 (09:20→17:08)
[2024-04-17] MEDS: docusate sodium 100 mg Capsule PO (09:20)
[2024-04-17] MEDS: aspirin 325 mg Tablet PO (09:20)
[2024-04-17] MEDS: heparin 5,000 unit/mL INJ 1 mL 5000 UNIT SUBCUT ×2 (09:21→21:41)
--- NOTE | 2024-04-17 15:05 | P.PN_ITS ---
Subjective 2 Subjective: No acute events overnight. Today morning patient seen laying comfortably in bed. Patient did have 1 episode of confusion overnight for which he had sitter for a short while. No episode of nausea vomiting, headache. Remains on room air. Vitals/I&O/Wt Last Vital Signs Temp 97.6 F 04/17/24 11:28 Pulse 68 04/17/24 13:37 Resp 18 04/17/24 13:32 BP 121/69 04/17/24 11:28 Pulse Ox 95 04/17/24 13:32 O2 Del Method Room Air 04/17/24 13:32 04/17/24 04/17/24 04/17/24 06:59 14:59 22:59 Intake Total 960 / 960 Output Total 310 / 310 Balance -310 / -310 960 / 960 Weight last 48 hrs Weight 60.736 kg Weight 59.903 kg Weight 61.235 kg Weight 61.235 kg Physical Exam 2 Narrative: General: No acute distress, AO x2-3, forgetful HEENT: PERRLA, pupils bilaterally equal and reactive Chest: Normal vesicular breath sounds, no added sounds, equal good air entry bilaterally CVS: S1-S2 regular, no murmurs, no tachycardia, no gallops, no rubs Abdomen: Soft, nontender, no organomegaly, bowel sounds present Neuro: No focal deficits, no facial deformity, AO x3, power 5/5 in all limbs Data 04/17/24 03:01 04/17/24 03:01 A&P Assessment and plan (1) Pneumothorax, right: Most likely traumatic in nature post fall 2 weeks ago. Thora vent placed in the ER. Post x-ray shows almost complete resolution of pneumothorax. Oxygen supplementation keeping saturation over 90%. Repeat chest x-ray in AM. Dr. Ryder from surgery consulted from the ER. He has agreed to follow-up and manage the chest tube. Pulmicort twice daily, DuoNebs every 6 hour. Check sputum culture, urine bacterial antigen. Hold off any antibiotics for now. (2) Rib fracture: Incentive spirometry. Pain management. (3) Lung cancer, upper lobe: (4) COPD (chronic obstructive pulmonary disease): Qualifiers: COPD type: emphysema Emphysema type: centrilobular Qualified Code(s): J43.2 - Centrilobular emphysema (5) PAD (peripheral artery disease): Continue with home dose of aspirin, statin. Check A1c, lipid panel. (6) Hypertension: Goal blood pressure less than 140/90 mmHg. Continue with home dose of lisinopril and metoprolol. Uptitrate as for goal blood pressure. (7) Dementia: Plan Current smoker. Counseled detail regarding against smoking. Nicotine patch if needed. Plan for the day: Will cap Thora vent and repeat x-ray in few hours. If remains stable will repeat x-ray tomorrow morning. Will follow-up with surgery regarding removal of Thora vent depending on the follow-up x-rays. Follow-up sputum culture. Appreciate lipid panel. Will start on atorvastatin 40 mg oral daily given history of recent stroke. CODE STATUS: Discussed in detail with the patient and patient's daughter at 2 separate occasions. Patient's daughter and will be the DPOA. Full code. Heparin 5000 every 12 hourly for DVT prophylaxis Protonix for PUD prophylaxis Attestations 2 Medical Necessity Statement*: Requires further hospitalization for management of right-sided pneumothorax in a patient with baseline lung cancer, rib fracture post fall as patient's Thora vent is further monitored and managed Diagnoses Pneumothorax, right J93.9 Rib fracture S22.39XA Lung cancer, upper lobe C34.10 Centrilobular emphysema J43.2 COPD type: emphysema Emphysema type: centrilobular PAD (peripheral artery disease) I73.9 Hypertension I10 Dementia F03.90
--- NOTE | 2024-04-17 16:14 | XRR_ITS ---
PROCEDURE INFORMATION: Exam: XR Chest Exam date and time: 04/17/2024 1:48 PM Age: 78 years old Clinical indication: Condition or disease; Lung condition and disease; Pneumothorax; Chronic/persistent air leak; Prior surgery; Surgery date: 6+ months; Surgery type: RT port placement; Patient HX: Right pnemothorax; HX lt lung cancer TECHNIQUE: Imaging protocol: Radiologic exam of the chest. Views: 1 view. COMPARISON: CR (CHEST, ) 04/17/2024 8:38 AM FINDINGS: Tubes, catheters and devices: The tip of the MediPort catheter projects in the SVC. A small bore right chest tube is unchanged. Lungs: Subsegmental atelectasis in the right base. The left lung is clear. Pleural spaces: Minimal right pleural effusion. No pneumothorax. Heart/Mediastinum: Unremarkable. No cardiomegaly. Bones/joints: Unremarkable. XR/XR chest 1V portable [id number] IMPRESSION: Mild right basilar atelectasis and minimal effusion.
[2024-04-18] VITALS (13 sets, daily range): BP systolic 102–131; BP diastolic 59–71; PULSE 61–75; RESP 16–18; TEMP 36.4–36.9; O2SAT 94–99; BMI 18.3
[2024-04-18] MEDS: ipratropium-albuterol 3 mL Neb INHALATION ×4 (01:25→20:35)
[2024-04-18 05:14] LABS: Basophils % 0.6 %; Eosinophils # 0.4 10^3/uL (0.0-0.8); Eosinophils % 6.2 %; Hematocrit 43.1 % (37-53); Lymphocytes # 0.9 10^3/uL (0.8-4.8); Lymphocytes % 13.1 %; Mean Corpuscular HGB Conc 31.3 g/dL (30-55); Mean Corpuscular Hemoglobin 27.1 pg (27-33); Mean Corpuscular Volume 86.4 fl (82-101); Mean Platelet Volume 10.1 fL (7.4-10.4); Monocytes # 0.6 10^3/uL (0.2-0.9); Monocytes % 8.6 %; Neutrophils # 4.63 10^3/uL (1.8-7.7); Neutrophils % 71.2 %; Nucleated Red Blood Cells % 0 %; Platelet Count 305 10^3/cmm (157-399); Red Blood Count 4.99 10^6/uL (3.85-5.65); Red Cell Distribution Width 17.3 % (12.1-15.1)
[2024-04-18 05:42] LABS: Alanine Aminotransferase 9 U/L (0-41); Albumin Level 3.6 g/dL (3.5-5.2); Alkaline Phosphatase 134 U/L (40-130); Aspartate Amino Transferase 12 U/L (0-40); Blood Urea Nitrogen 26 mg/dL (8-23); Calcium 9.3 mg/dL (8.5-10.5); Carbon Dioxide 24 mmol/L (22-29); Chloride 103 mmol/L (98-107); Creatinine Clr Calc Pharmacy 50.6133; Globulin 3.7 g/dL (1.3-4.6); Glucose 118 mg/dL (65-115); Osmolality Calculated 290 mOsm/kg (285-295); Sodium 137 mmol/L (136-145); Total Bilirubin 0.2 mg/dL (0.15-1.2); Total Protein 7.3 g/dL (6.6-8.7)
--- NOTE | 2024-04-18 06:00 | XRR_ITS ---
PROCEDURE INFORMATION: Exam: XR Chest Exam date and time: 04/18/2024 5:05 AM Age: 78 years old Clinical indication: Condition or disease; Lung condition and disease; Pneumothorax; Prior surgery; Surgery date: 6+ months; Surgery type: Port; Patient HX: History of lung cancer; Additional info: Right pneumothorax TECHNIQUE: Imaging protocol: Radiologic exam of the chest. Views: 1 view. COMPARISON: CR (CHEST, ) 04/17/2024 1:48 PM FINDINGS: Tubes, catheters and devices: Medication port is seen on the right with its tip overlying the SVC. Small bore thoracotomy tube is noted on the right. Lungs: There has been interval improvement in the aeration of the lungs when compared to prior exam. Pleural spaces: There may be trace pneumothorax at the right costophrenic angle. Heart/Mediastinum: The heart is enlarged. There is calcified plaque involving the aorta. Bones/joints: Unremarkable. XR/XR chest 1V portable [id number] IMPRESSION: 1. Trace pneumothorax right costophrenic angle.
[2024-04-18] MEDS: budesonide 0.5 mg/2 mL Neb INHALATION ×2 (07:49→20:35)
[2024-04-18] MEDS: atorvastatin 40 mg Tablet PO (08:06)
[2024-04-18] MEDS: aspirin 325 mg Tablet PO (08:06)
[2024-04-18] MEDS: lisinopril 10 mg Tablet PO (08:06)
[2024-04-18] MEDS: pantoprazole DR 40 mg Tablet PO (08:06)
[2024-04-18] MEDS: guaiFENesin 600 mg Tablet PO ×2 (08:06→17:51)
--- NOTE | 2024-04-18 08:06 | P.PN_ITS ---
Subjective 2 Subjective: Examined. He is more confused today denies any chest wall pain or difficulty breathing. This morning's x-ray shows no pneumothorax Vitals/I&O/Wt Last Vital Signs Temp 97.6 F 04/19/24 04:00 Pulse 76 04/19/24 04:00 Resp 17 04/19/24 04:00 BP 129/74 04/19/24 04:00 Pulse Ox 94 04/19/24 04:00 O2 Del Method Room Air 04/19/24 04:00 O2 Flow Rate 4 04/19/24 03:49 FiO2 3 04/18/24 01:25 04/18/24 04/19/24 04/19/24 22:59 06:59 14:59 Intake Total 360 / 720 120 / 840 Balance 360 / 420 120 / 540 Weight last 48 hrs Weight 132 lb Weight 131 lb 11.2 oz Weight 131 lb 11.2 oz Weight 133 lb 14.4 oz Physical Exam 2 Narrative: General: No acute distress, awake alert but oriented only to self Respiratory: Equal chest rise bilaterally, no use accessory muscles Data 04/18/24 04:55 04/18/24 04:55 Micro: Microbiology 04/16/24 17:05 Gram Stain - Final Sputum - Expectorated Sputum Sputum Culture - Preliminary 04/16/24 23:26 Bacterial Antigens - Final Urine Kidney A&P Assessment and plan (1) Lung cancer, upper lobe: (2) Rib fracture: (3) Pneumothorax, right: Plan Event was removed in the typical fashion Repeat chest x-ray at noon Medical management per hospitalist Attestations 2 Medical Necessity Statement*: Per primary Coding Level of Care Code 16136 Diagnoses Lung cancer, upper lobe C34.10 Rib fracture S22.39XA Pneumothorax, right J93.9
[2024-04-18] MEDS: heparin 5,000 unit/mL INJ 1 mL 5000 UNIT SUBCUT ×2 (08:07→20:39)
--- NOTE | 2024-04-18 10:29 | PC.SOCIAL ---
IMM Updated Updated pt on IMM. No questions voiced. Provided pt a copy. Initialed, dated, & timed a copy & placed in chart.
--- NOTE | 2024-04-18 12:00 | XRR_ITS ---
PROCEDURE INFORMATION: Exam: XR Chest Exam date and time: 04/18/2024 11:57 AM Age: 78 years old Clinical indication: Device placement; Other: Thoravent removal; Patient HX: HX of lung cancer; Additional info: F/u thoravent removal, please perform at noon TECHNIQUE: Imaging protocol: Radiologic exam of the chest. Views: 1 view. COMPARISON: 1. CR XR chest 1V portable [id number] 04/18/2024 5:05 AM 2. CR (CHEST, ) 04/17/2024 1:48 PM 3. CR (CHEST, ) 04/17/2024 8:38 AM FINDINGS: Tubes, catheters and devices: Interval removal of right Thoravent. Right chest port terminates near the superior cavoatrial junction. Lungs: Mild basilar linear atelectasis versus scarring. No consolidation. Pleural spaces: No substantial pleural effusion or pneumothorax. Heart/Mediastinum: Stable cardiomegaly. Vasculature: Aortic atherosclerotic calcification. Bones/joints: Redemonstrated multiple bilateral rib fracture deformities. Degenerative changes along the spine. XR/XR chest 1V portable [id number] IMPRESSION: 1. Interval right Thoravent removal. 2. No acute cardiopulmonary findings.
--- NOTE | 2024-04-18 22:04 | P.PN_ITS ---
Subjective 2 Subjective: This morning his family are concerned about low saturation, but noted his oxygen probe lowest adhesion to his forehead, corrected the probe, discussed with family. He reports he is doing well. Denies pain or discomfort. No trouble breathing. Unable to provide history, but otherwise pleasant, interactive, does give review of systems. Vitals/I&O/Wt Last Vital Signs Temp 98.4 F 04/18/24 19:58 Pulse 62 04/18/24 20:36 Resp 16 04/18/24 20:36 BP 102/62 04/18/24 19:58 Pulse Ox 94 04/18/24 20:36 O2 Del Method Nasal Cannula 04/18/24 20:36 O2 Flow Rate 4 04/18/24 20:36 FiO2 3 04/18/24 01:25 04/18/24 04/18/24 04/18/24 06:59 14:59 22:59 Intake Total 120 / 1200 360 / 360 240 / 600 Output Total 300 / 303 300 / 300 Balance -180 / 897 60 / 60 240 / 300 Weight last 48 hrs Weight 59.738 kg Weight 59.738 kg Weight 60.736 kg Weight 59.903 kg Physical Exam 2 Narrative: Accompanied by his and daughter. Const: COMMON NORMALS: patient oriented x3 and alert GENERAL APPEARANCE: c ooperative ORIENTATION/CONSCIOUSNESS: Yes awake HENMT: COMMON NORMALS: oropharynx normal Neck/C-Spine: COMMON NORMALS: no JVD Resp: COMMON NORMALS: normal respiratory effort and clear to auscultation bilaterally AUSCULTATION: clear to auscultation bilaterally Cardio: COMMON NORMALS: no JVD, regular rhythm, S1 normal heart sound present, S2 normal heart sound present and No murmurs present (Cardio) RHYTHM: regular rhythm HEART SOUNDS: S1 normal heart sound present and S2 normal heart sound present GI: COMMON NORMALS: Normal to inspection, nondistended, normoactive bowel sounds present, Soft to palpation and non-tender PALPATION: Yes Soft to palpation Extremity: COMMON NORMALS: no joint enlargement and no pedal edema Neuro: COMMON NORMALS: patient oriented x3 and moves all extremities S ENSORIUM/ORIENTATION: Yes alert Skin: COMMON NORMALS: no rashes or lesions noted GENERAL SKIN EXAM: no rashes or lesions noted Data 04/18/24 04:55 07/15/24 04:55 Micro: Microbiology 04/16/24 17:05 Gram Stain - Final Sputum - Expectorated Sputum Sputum Culture - Preliminary 04/16/24 23:26 Bacterial Antigens - Final Urine Kidney A&P Assessment and plan (1) Pneumothorax, right: Reviewed vitals, CBC, CMP, surgery note, discussed with family service caseworker. Reviewed chest x-ray from this morning. Thora vent was removed by surgery, repeat chest x-ray obtained this afternoon. Reviewed. Reassess oxygenation. Repeat x-ray in the morning. Most likely traumatic in nature post fall 2 weeks ago. Thora vent placed in the ER. Post x-ray shows almost complete resolution of pneumothorax. Oxygen supplementation keeping saturation over 90%. Sputum culture reviewed, moderate normal dario on day 1. Follow-up. Hold off any antibiotics for now. (2) Rib fracture: Encouraged fall precautions, incentive spirometry. Renew hydrocodone. Has not needed morphine IV. Stop. Pain management. (3) Lung cancer, upper lobe: (4) COPD (chronic obstructive pulmonary disease): Qualifiers: COPD type: emphysema Emphysema type: centrilobular Qualified Code(s): J43.2 - Centrilobular emphysema (5) PAD (peripheral artery disease): Continue with home dose of aspirin, statin. Reviewed A1c, 6.2. Following in the range of prediabetes. Would benefit from consistent carb diet,Statin. (6) Hypertension: Goal blood pressure less than 140/90 mmHg. Continue with home dose of lisinopril and metoprolol. Uptitrate as for goal blood pressure. (7) Dementia: Plan Current smoker. Continue to encourage cessation. CODE STATUS: Patient's daughter and will be the DPOA. Full code. Heparin 5000 every 12 hourly for DVT prophylaxis Protonix for PUD prophylaxis Attestations 2 Medical Necessity Statement*: Requires further hospitalization for management of right-sided pneumothorax in a patient with baseline lung cancer, rib fracture post fall as patient's Thora vent removal. and High MDM includes amount and/or complexity of data reviewed/ordered [ previous or external records, resulted lab(s)/test(s), ordered lab(s)/test(s) and other healthcare professional discussion] as documented Diagnoses Pneumothorax, right J93.9 Rib fracture S22.39XA Lung cancer, upper lobe C34.10 Centrilobular emphysema J43.2 COPD type: emphysema Emphysema type: centrilobular PAD (peripheral artery disease) I73.9 Hypertension I10 Dementia F03.90
[2024-04-19] VITALS (8 sets, daily range): BP systolic 110–144; BP diastolic 64–74; PULSE 64–76; RESP 16–17; TEMP 36.3–37; O2SAT 88–98
[2024-04-19] MEDS: ipratropium-albuterol 3 mL Neb INHALATION ×2 (03:49→07:48)
--- NOTE | 2024-04-19 06:00 | XRR_ITS ---
PROCEDURE INFORMATION: Exam: XR Chest Exam date and time: 04/19/2024 5:13 AM Age: 78 years old Clinical indication: Condition or disease; Lung condition and disease; Pneumothorax; Prior surgery; Surgery date: 6+ months; Surgery type: Port; Additional info: Follow-up pneumothorax TECHNIQUE: Imaging protocol: Radiologic exam of the chest. Views: 1 view. COMPARISON: CR XR chest 1V portable [id number] 04/18/2024 11:57 AM FINDINGS: Tubes, catheters and devices: Right infusion port terminates near the atrial caval junction. Lungs: Mild atelectasis at the right lung base. Pleural spaces: No evidence of pneumothorax. Heart/Mediastinum: Unremarkable. No cardiomegaly. Vasculature: Mild uncoiling of the thoracic aorta. Bones/joints: Deformity from multiple left rib fractures. XR/XR chest 1V portable [id number] IMPRESSION: No acute findings.
[2024-04-19] MEDS: budesonide 0.5 mg/2 mL Neb INHALATION (07:48)
--- NOTE | 2024-04-19 08:06 | PM.DCS ---
Discharge Providers Date of Admission: 04/16/24 15:50 Date of Discharge: April 19, 2024 Attending Provider at Admission: Layo John MD Attending Provider at Discharge: Bienvenido Bajwa Primary Care Provider: Alexis Walker Diagnoses at Discharge Discharge Diagnosis (1) Lung cancer, upper lobe: Status: Acute (2) Rib fracture: Status: Acute (3) Pneumothorax, right: Status: Acute Reason for Visit Reason for Visit: Dr. Knight sent pt over abnormal pet scan Hospital Course Hospital Course Very pleasant 78-year-old gentleman with dementia, recent stroke, lung cancer, was found to have large right-sided pneumothorax after working follow-up PET scan, this appears to form likely after a fall out of the chair 2 weeks previously. Was assessed by surgery, Thora vent was placed. Received oxygen supplementation. With improving pneumothorax Thora vent was capped and removed with good follow-up x-ray this morning. He was doing well, was cleared for discharge by surgery to resume outpatient follow-up. As per discussion with family he is to maintain fall precautions, seek reevaluation in case of any worsening or new concerning symptoms. Physical Exam Narrative: He reports he is feeling well. Denies pain or discomfort. No trouble breathing. Const: COMMON NORMALS: alert GENERAL APPEARANCE: cooperative ORIENTATION/CONSCIOUSNESS: Yes awake HENMT: COMMON NORMALS: oropharynx normal Neck/C-Spine: COMMON NORMALS: no JVD Resp: COMMON NORMALS: normal respiratory effort and clear to auscultation bilaterally AUSCULTATION: clear to auscultation bilaterally Cardio: COMMON NORMALS: no JVD, regular rhythm, S1 normal heart sound present, S2 normal heart sound present and No murmurs present (Cardio) RHYTHM: regular rhythm HEART SOUNDS: S1 normal heart sound present and S2 normal heart sound present GI: COMMON NORMALS: Normal to inspection, nondistended, normoactive bowel sounds present, Soft to palpation and non-tender PALPATION: Yes Soft to palpation Extremity: COMMON NORMALS: no joint enlargement and no pedal edema Neuro: COMMON NORMALS: moves all extremities SENSORIUM/ORIENTATION: Yes alert Skin: COMMON NORMALS: no rashes or lesions noted GENERAL SKIN EXAM: no rashes or lesions noted Discharge Data Studies Completed and Pending Completed Studies During Hospitalization Category Date Time Status CXRP [XR chest 1V portable [id number]] Routine Exams 04/18/24 12:00 Completed CXRP [XR chest 1V portable [id number]] Stat Exams 04/16/24 14:52 Completed XR chest 1V portable [id number] Routine Exams 04/17/24 06:00 Completed XR chest 1V portable [id number] Routine Exams 04/17/24 16:14 Completed XR chest 1V portable [id number] Routine Exams 04/18/24 06:00 Completed XR chest 1V portable [id number] Routine Exams 04/19/24 06:00 Completed XR chest 1V portable [id number] Stat Exams 04/16/24 13:16 Completed Pending at discharge Category Date Time Status Sputum Culture and Gram Stain Stat Lab 04/16/24 17:05 Results Urinalysis Routine Lab 04/16/24 17:09 Uncollected Radiology Impressions Chest X-Ray 04/19/24 06:00 IMPRESSION: No acute findings. Laboratory Results WBC 6.50 10^3/uL (3.29-11.43) 04/18/24 04:55 RBC 4.99 10^6/uL (3.85-5.65) 04/18/24 04:55 Hgb 13.50 g/dL (11.27-16.99) 04/18/24 04:55 Hct 43.1 % (37-53) 04/18/24 04:55 MCV 86.4 fl (82-101) 04/18/24 04:55 MCH 27.1 pg (27-33) 04/18/24 04:55 MCHC 31.3 g/dL (30-55) 04/18/24 04:55 RDW 17.3 % (12.1-15.1) H 04/18/24 04:55 Plt Count 305 10^3/cmm (157-399) 04/18/24 04:55 MPV 10.1 fL (7.4-10.4) 04/18/24 04:55 Neut % (Auto) 71.2 % 04/18/24 04:55 Lymph % (Auto) 13.1 % 04/18/24 04:55 [place] % (Auto) 8.6 % 04/18/24 04:55 Eos % (Auto) 6.2 % 04/18/24 04:55 Baso % (Auto) 0.6 % 04/18/24 04:55 Neut # (Auto) 4.63 10^3/uL (1.8-7.7) 04/18/24 04:55 Lymph # (Auto) 0.9 10^3/uL (0.8-4.8) 04/18/24 04:55 [place] # (Auto) 0.6 10^3/uL (0.2-0.9) 04/18/24 04:55 Eos # (Auto) 0.4 10^3/uL (0.0-0.8) 04/18/24 04:55 Baso # (Auto) 0.0 10^3/uL (0.0-0.1) 04/18/24 04:55 Nucleated RBC % (auto) 0 % 04/18/24 04:55 Nucleated RBCs # 0.0 /100WBC 04/18/24 04:55 Sodium 137 mmol/L (136-145) 04/18/24 04:55 Potassium 5.0 mmol/L (3.5-5.1) 04/18/24 04:55 Chloride 103 mmol/L (98-107) 04/18/24 04:55 Carbon Dioxide 24 mmol/L (22-29) 04/18/24 04:55 Anion Gap 15.0 (5-19) 04/18/24 04:55 BUN 26 mg/dL (8-23) H 04/18/24 04:55 Creatinine 1.0 mg/dL (0.7-1.2) 04/18/24 04:55 GFR Calculation Not Reportable 04/18/24 04:55 Glucose 118 mg/dL (65-115) H 04/18/24 04:55 Estimat Average Glucose 131 04/17/24 03:01 Hemoglobin A1c 6.2 % (4.0-6.0) H 04/17/24 03:01 Calculated Osmolality 290 mOsm/kg (285-295) 04/18/24 04:55 Calcium 9.3 mg/dL (8.5-10.5) 04/18/24 04:55 Phosphorus 3.6 mg/dL (2.5-4.5) 04/17/24 03:01 Magnesium 2.2 mg/dL (1.7-2.3) 04/17/24 03:01 Iron 36 ug/dL (59-158) L 04/16/24 13:37 TIBC 247 mcg/dl 04/16/24 13:37 % Saturation 14.5 % (20-50) L 04/16/24 13:37 Unsat Iron Binding 211 ug/dL (112-347) 04/16/24 13:37 Total Bilirubin 0.2 mg/dL (0.15-1.2) 04/18/24 04:55 AST 12 U/L (0-40) 04/18/24 04:55 ALT 9 U/L (0-41) 04/18/24 04:55 Alkaline Phosphatase 134 U/L (40-130) H 04/18/24 04:55 Total Protein 7.3 g/dL (6.6-8.7) 04/18/24 04:55 Albumin 3.6 g/dL (3.5-5.2) 04/18/24 04:55 Globulin 3.7 g/dL (1.3-4.6) 04/18/24 04:55 Triglycerides 141 mg/dL (0-150) 04/17/24 03:01 Cholesterol 228 mg/dL (0-200) H 04/17/24 03:01 LDL Cholesterol, Calc 163 mg/dL (50-129) H 04/17/24 03:01 HDL Cholesterol 37 mg/dL (60-100) L 04/17/24 03:01 LDL/HDL Ratio 4.41 RATIO (0.00-3.22) H 04/17/24 03:01 Cholesterol/HDL Ratio 6.16 mg/dL (1.0-5.00) H 04/17/24 03:01 Vitamin B12 532 pg/mL (232-1245) 04/16/24 13:37 Folate > 20.0 ng/mL (4.5-32.2) 04/17/24 03:01 Procalcitonin 0.02 ng/mL (0-0.5) 04/17/24 03:01 TSH 1.83 uIU/mL (0.27-4.20) 04/16/24 13:37 Vitals Last Vital Signs Temp 97.4 F L 04/19/24 07:29 Pulse 67 04/19/24 07:50 Resp 16 04/19/24 07:50 BP 144/70 04/19/24 07:29 Pulse Ox 98 04/19/24 07:50 O2 Del Method Nasal Cannula 04/19/24 07:50 O2 Flow Rate 4 04/19/24 07:50 FiO2 3 04/18/24 01:25 Discharge Plan Discharge Patient Disposition: Home Health Service Condition: Stable Prescriptions: New atorvastatin 40 mg Tablet 40 mg PO DAILY Qty: 90 0RF acetaminophen 325 mg Tablet 650 mg PO Q6H PRN (Reason: Mild/Mod Pain Or Temp >/= 101) Qty: 30 0RF Continued pantoprazole 20 mg tablet,delayed release (DR/EC) 20 mg PO BID docusate sodium 100 mg capsule 100 mg PO BID metoprolol succinate 25 mg tablet extended release 24 hr 12.5 mg PO BID coenzyme Q10 100 mg capsule 100 mg PO DAILY guaifenesin [Mucinex] 600 mg tablet extended release 12hr 600 mg PO BID PRN (Reason: Congestion) lisinopril 10 mg tablet 10 mg PO DAILY thiamine HCl (vitamin B1) 100 mg Tablet 100 mg PO DAILY multivitamin Tablet 1 tab PO DAILY ferrous sulfate 325 mg (65 mg iron) Tablet 325 mg PO BID aspirin 81 mg Tablet,Chewable 81 mg PO DAILY folic acid 0.8 mg Capsule 0.4 mg PO DAILY Discharge Orders: Discharge Order (Routine); Ordered 04/19/24 Ordered By: Bienvenido Bajwa Other Ambulatory Orders: DME: Oxygen (Order) Location: None Selected Ordered By: Bienvenido Bajwa Referrals: [facility] [Outside] Dionisio Ryder DO [Physician] - 2 weeks (We have notified your physician's clinic of the need for a follow-up appointment to be scheduled. If you have not heard from them within the next 2 business days, please call them directly. ) Alexis Walker [Primary Care Provider] - 04/20/24 10:15 am Discharge Diet: As Directed Patient Instructions: Atorvastatin (By mouth), Traumatic Pneumothorax (GEN), Rib Fracture (DC), COPD (Chronic Obstructive Pulmonary Disease) (DC), Aspiration Precautions (GEN), COPD Stoplight, Opioid Safety Activity Restrictions/Additional Instructions: Continue incentive spirometer to help reduce chance of development of pneumonia. Maintain fall precautions, avoid further injury. Follow-up for reassessment after pneumothorax (deflated lung). Continue dysphagia diet level 5, minced and moist foods. Maintain aspiration precautions. Discharge Attestations Time Spent in Discharge Care*: greater than 30 min Quality Metrics Clinical Quality Measures [ No reported AMI, CVA or VTE this stay] Coding Level of Care Code 07814 Total time (in minutes) for Discharge: 40 Diagnoses Lung cancer, upper lobe C34.10 Rib fracture S22.39XA Pneumothorax, right J93.9
--- NOTE | 2024-04-19 08:19 | P.PN_ITS ---
Subjective 2 Subjective: Patient seen and examined. Less confused today. No difficulty breathing Vitals/I&O/Wt Last Vital Signs Temp 97.4 F L 04/19/24 07:29 Pulse 67 04/19/24 07:50 Resp 16 04/19/24 07:50 BP 144/70 04/19/24 07:29 Pulse Ox 98 04/19/24 07:50 O2 Del Method Nasal Cannula 04/19/24 07:50 O2 Flow Rate 4 04/19/24 07:50 FiO2 3 04/18/24 01:25 04/18/24 04/19/24 04/19/24 22:59 06:59 14:59 Intake Total 360 / 720 120 / 840 Balance 360 / 420 120 / 540 Weight last 48 hrs Weight 132 lb Weight 131 lb 11.2 oz Weight 131 lb 11.2 oz Weight 133 lb 14.4 oz Physical Exam 2 Narrative: General: No acute distress, awake alert but oriented only to self Respiratory: Equal chest rise bilaterally, no use accessory muscles Data 04/18/24 04:55 04/18/24 04:55 Micro: Microbiology 04/16/24 17:05 Gram Stain - Final Sputum - Expectorated Sputum Sputum Culture - Preliminary 04/16/24 23:26 Bacterial Antigens - Final Urine Kidney A&P Assessment and plan (1) Lung cancer, upper lobe: (2) Rib fracture: (3) Pneumothorax, right: Plan Event was removed in the typical fashion yesterday. Follow-up chest x-ray showed no pneumothorax This morning's x-ray continues to show no pneumothorax Surgically stable for discharge. Bandage to remain over thoravent site for 48 hours and then remove Medical management per hospitalist Attestations 2 Medical Necessity Statement*: per primary Coding Level of Care Code 51414 Diagnoses Lung cancer, upper lobe C34.10 Rib fracture S22.39XA Pneumothorax, right J93.9
[2024-04-19] MEDS: aspirin 325 mg Tablet PO (09:02)
[2024-04-19] MEDS: docusate sodium 100 mg Capsule PO (09:02)
[2024-04-19] MEDS: lisinopril 10 mg Tablet PO (09:02)
[2024-04-19] MEDS: atorvastatin 40 mg Tablet PO (09:02)
[2024-04-19] MEDS: guaiFENesin 600 mg Tablet PO (09:02)
[2024-04-19] MEDS: pantoprazole DR 40 mg Tablet PO (09:02)
[2024-04-19] MEDS: heparin 5,000 unit/mL INJ 1 mL 5000 UNIT SUBCUT (09:02)
--- NOTE | 2024-04-19 15:27 | PC.NURSE ---
Discussed discharge instructions including medications, follow up appointments and answered all questions for family.
== END 2024-04-19 14:10 | disposition home health service (06) | DRG 200 ==
LOC: ER 15:55 → MEDSURG 16:34
PROVIDERS: Admitting Provider Student in an Organized Health Care Education/Training Program; Emergency Provider Family Medicine; PCP Family Medicine; Visit Provider Internal Medicine
DX: S27.0XXA Traumatic pneumothorax, initial encounter (principal); C34.11 Malignant neoplasm of upper lobe, right bronchus or lung; S22.41XA Multiple fractures of ribs, right side, initial encounter for closed fracture; W19.XXXA Unspecified fall, initial encounter; Y92.9 Unspecified place or not applicable; I10 Essential (primary) hypertension; F17.210 Nicotine dependence, cigarettes, uncomplicated; J43.2 Centrilobular emphysema; R00.1 Bradycardia, unspecified; Z86.73 Personal history of transient ischemic attack (TIA), and cerebral infarction without residual deficits; F03.90 Unspecified dementia, unspecified severity, without behavioral disturbance, psychotic disturbance, mood disturbance, and anxiety; I73.9 Peripheral vascular disease, unspecified
CPT/HCPCS: 36415; 71045; 80053; 80061; 82607; 82746; 83036; 83540; 83550; 83735; 84100; 84145; 84443; 85025; 86403; 87070; 87205; 93005; 94640; 94664; 94760; 96372; 99285; 99291; J1644; J3490; J7626

== ENCOUNTER 2024-04-21 12:45 | Outpatient (CLI) | payer MEDICARE, OTHER, SELFPAY ==
--- NOTE | 2024-04-21 13:00 | MR_ITS ---
WS: [id number] MRI BRAIN WITH AND WITHOUT CONTRAST HISTORY: lung cancer COMPARISON: 04/04/2022, CT head 12/27/2023 TECHNIQUE: Multiplanar imaging performed through the brain with with and without MultiHance. New volume loss and signal changes in the LEFT occipital lobe. There is volume loss and ex vacuo dila tation of the LEFT lateral ventricle. There is T2 shine through present involving a portion of the si gnal abnormality noted medially. On the postcontrast imaging there is serpiginous enhancement followi ng a portion of the LEFT occipital lobe. Favor this is probably a subacute occipital lobe infarct and less likely metastatic site. No additional areas of an enhancement. No cerebellar abnormalities. Remote infarct LEFT thalamus. No enhancement of the LEFT thalamus. Small lacunar infarct in the RIGHT caudate head. Prior infarct LEFT anterior frontal lobe above the lateral ventricle without enhancement. Mild ventriculomegaly. Greater ex ductal dilatation of the posterior horn LEFT lateral ventricle at t he site of the suspected infarct. Clivus and pituitary gland are normal. Visualized posterior fossa and brainstem are also normal. Paranasal sinuses: Mild mucoperiosteal thickening in the maxillary sinuses. Small RIGHT maxillary air -fluid level. Mastoid air cells: Normal. Calvarium and scalp: Normal. MR/MR head wo/w con [id number] IMPRESSION: 1. Signal abnormality involves a large portion of the LEFT occipital lobe. Thi s is most consistent with a subacute infarct. New since 04/04/2022 and also the h ead CT of 12/27/2023. There is volume loss with ex vacuo dilatation occipital ho rn LEFT lateral ventricle along with serpiginous enhancement. Less likely metas tatic site. Due to the significant change recommend follow-up MRI brain with an d without contrast in 6 to 8 weeks. 2. Additional prior remote infarct in the LEFT thalamus and LEFT frontal lobe. 3. No additional areas of enhancement other than the serpiginous enhancement i n the LEFT occipital lobe 4. Moderate volume loss and advanced small vessel ischemic disease throughout the white matter.
[2024-04-21] MEDS: gadobenate dimeglumine 20 mL vial IV (13:54)
== END 2024-04-21 12:46 | disposition home or self-care (01) ==
LOC: RAD 12:45
PROVIDERS: PCP Family Medicine; Visit Provider Internal Medicine Medical Oncology
DX: C34.10 Malignant neoplasm of upper lobe, unspecified bronchus or lung (principal); R93.0 Abnormal findings on diagnostic imaging of skull and head, not elsewhere classified; G93.89 Other specified disorders of brain
CPT/HCPCS: 70553; A9577

== ENCOUNTER 2024-05-05 09:05 | Oncology outpatient (recurring) (ONCR) | payer OTHER, SELFPAY ==
[2024-05-05 09:24] LABS: Basophils % 0.5 %; Eosinophils # 0.5 10^3/uL (0.0-0.8); Eosinophils % 7.2 %; Hematocrit 39.7 % (37-53); Lymphocytes # 0.8 10^3/uL (0.8-4.8); Lymphocytes % 12.2 %; Mean Corpuscular HGB Conc 31.7 g/dL (30-55); Mean Corpuscular Hemoglobin 27.3 pg (27-33); Mean Corpuscular Volume 86.1 fl (82-101); Mean Platelet Volume 9.3 fL (7.4-10.4); Monocytes # 0.7 10^3/uL (0.2-0.9); Neutrophils # 4.56 10^3/uL (1.8-7.7); Neutrophils % 68.8 %; Nucleated Red Blood Cells % 0 %; Platelet Count 259 10^3/cmm (157-399); Red Blood Count 4.61 10^6/uL (3.85-5.65); White Blood Count 6.63 10^3/uL (3.29-11.43)
[2024-05-05 09:50] LABS: Alanine Aminotransferase 13 U/L (0-41); Albumin Level 3.9 g/dL (3.5-5.2); Alkaline Phosphatase 108 U/L (40-130); Anion Gap 14.9 (5-19); Aspartate Amino Transferase 16 U/L (0-40); Blood Urea Nitrogen 25 mg/dL (8-23); Calcium 9.3 mg/dL (8.5-10.5); Cancer Antigen 19 9 6.08 U/mL (0-35); Carbon Dioxide 26 mmol/L (22-29); Chloride 102 mmol/L (98-107); Globulin 3.3 g/dL (1.3-4.6); Glucose 103 mg/dL (65-115); Osmolality Calculated 291 mOsm/kg (285-295); Potassium 4.9 mmol/L (3.5-5.1); Sodium 138 mmol/L (136-145); Total Bilirubin 0.6 mg/dL (0.15-1.2); Total Protein 7.2 g/dL (6.6-8.7)
[2024-05-05 10:19] LABS: Carcinoembryonic Antigen 3.2 ng/mL (0.0-4.7)
== END 2024-06-09 09:10 | disposition home or self-care (01) ==
PROVIDERS: Nurse Practitioner Family; Absent Provider Radiology Radiation Oncology; PCP Family Medicine; Visit Provider Internal Medicine Medical Oncology
DX: C34.10 Malignant neoplasm of upper lobe, unspecified bronchus or lung
CPT/HCPCS: 36591; 80053; 82378; 85025; 86301; 99214

== ENCOUNTER → 2024-07-08 10:45 | Outpatient (BNVA) | payer OTHER, SELFPAY | PROVIDERS: PCP Family Medicine; Visit Provider Podiatrist Foot & Ankle Surgery | DX: L60.3 Nail dystrophy (principal); I73.9 Peripheral vascular disease, unspecified | CPT/HCPCS: 11721 ==

== ENCOUNTER 2024-08-10 10:51 | Oncology outpatient (recurring) (ONCR) | payer OTHER, SELFPAY ==
[2024-08-10 11:11] LABS: Basophils % 0.2 %; Eosinophils # 0.1 10^3/uL (0.0-0.8); Eosinophils % 2.4 %; Lymphocytes # 0.9 10^3/uL (0.8-4.8); Lymphocytes % 20.3 %; Mean Corpuscular Hemoglobin 29.8 pg (27-33); Mean Corpuscular Volume 93.4 fl (82-101); Mean Platelet Volume 9.8 fL (7.4-10.4); Monocytes # 0.6 10^3/uL (0.2-0.9); Monocytes % 12.9 %; Neutrophils # 2.87 10^3/uL (1.8-7.7); Nucleated Red Blood Cells % 0 %; Platelet Count 240 10^3/cmm (157-399); Red Blood Count 4.39 10^6/uL (3.85-5.65); Red Cell Distribution Width 15.5 % (12.1-15.1); White Blood Count 4.49 10^3/uL (3.29-11.43)
[2024-08-10 11:27] LABS: Alanine Aminotransferase 21 U/L (0-41); Albumin Level 3.8 g/dL (3.5-5.2); Alkaline Phosphatase 94 U/L (40-130); Anion Gap 13.4 (5-19); Aspartate Amino Transferase 18 U/L (0-40); Blood Urea Nitrogen 19 mg/dL (8-23); Calcium 8.7 mg/dL (8.5-10.5); Carbon Dioxide 26 mmol/L (22-29); Chloride 104 mmol/L (98-107); Creatinine Clr Calc Pharmacy 72.6683; Globulin 2.9 g/dL (1.3-4.6); Glucose 129 mg/dL (65-115); Osmolality Calculated 292 mOsm/kg (285-295); Potassium 4.4 mmol/L (3.5-5.1); Sodium 139 mmol/L (136-145); Total Bilirubin 0.5 mg/dL (0.15-1.2); Total Protein 6.7 g/dL (6.6-8.7)
== END 2024-09-03 23:59 | disposition home or self-care (01) ==
PROVIDERS: Nurse Practitioner Family; Absent Provider Radiology Radiation Oncology; PCP Family Medicine; Visit Provider Internal Medicine Medical Oncology
DX: C34.10 Malignant neoplasm of upper lobe, unspecified bronchus or lung (principal); Z53.9 Procedure and treatment not carried out, unspecified reason; N40.0 Benign prostatic hyperplasia without lower urinary tract symptoms
CPT/HCPCS: 36591; 80053; 84153; 85025; 99214

== ENCOUNTER → 2024-11-02 09:47 | Outpatient (BNVA) | payer OTHER, SELFPAY | PROVIDERS: PCP Family Medicine; Visit Provider Podiatrist Foot & Ankle Surgery | DX: L60.3 Nail dystrophy (principal); I73.9 Peripheral vascular disease, unspecified | CPT/HCPCS: 11721 ==

== ENCOUNTER 2024-11-10 11:08 | Oncology outpatient (recurring) (ONCR) | payer OTHER, SELFPAY ==
[2024-11-10 11:53] LABS: Basophils % 0.5 %; Eosinophils # 0.2 10^3/uL (0.0-0.8); Eosinophils % 2.8 %; Hematocrit 42.3 % (37-53); Lymphocytes % 16.3 %; Mean Corpuscular HGB Conc 32.4 g/dL (30-55); Mean Corpuscular Hemoglobin 30.6 pg (27-33); Mean Corpuscular Volume 94.4 fl (82-101); Mean Platelet Volume 9.7 fL (7.4-10.4); Monocytes # 0.8 10^3/uL (0.2-0.9); Monocytes % 12.6 %; Neutrophils # 4.31 10^3/uL (1.8-7.7); Neutrophils % 67.6 %; Nucleated Red Blood Cells % 0 %; Platelet Count 257 10^3/cmm (157-399); Red Blood Count 4.48 10^6/uL (3.85-5.65); Red Cell Distribution Width 14.2 % (12.1-15.1); White Blood Count 6.37 10^3/uL (3.29-11.43)
[2024-11-10 12:10] LABS: Alanine Aminotransferase 16 U/L (0-41); Albumin Level 3.7 g/dL (3.5-5.2); Alkaline Phosphatase 95 U/L (40-130); Anion Gap 13.2 (5-19); Aspartate Amino Transferase 17 U/L (0-40); Blood Urea Nitrogen 22 mg/dL (8-23); Calcium 9.1 mg/dL (8.5-10.5); Carbon Dioxide 27 mmol/L (22-29); Chloride 102 mmol/L (98-107); Creatinine Clr Calc Pharmacy 64.4291; Glucose 129 mg/dL (65-115); Osmolality Calculated 291 mOsm/kg (285-295); Potassium 4.2 mmol/L (3.5-5.1); Sodium 138 mmol/L (136-145); Total Bilirubin 0.6 mg/dL (0.15-1.2); Total Protein 6.7 g/dL (6.6-8.7)
== END 2024-12-02 23:59 | disposition home or self-care (01) ==
PROVIDERS: Absent Provider Radiology Radiation Oncology; PCP Family Medicine; Visit Provider Internal Medicine
DX: Z08 Encounter for follow-up examination after completed treatment for malignant neoplasm (principal); Z85.118 Personal history of other malignant neoplasm of bronchus and lung; I69.351 Hemiplegia and hemiparesis following cerebral infarction affecting right dominant side; Z87.891 Personal history of nicotine dependence; Z95.828 Presence of other vascular implants and grafts; Z92.3 Personal history of irradiation; Z92.21 Personal history of antineoplastic chemotherapy; Z92.25 Personal history of immunosuppression therapy
CPT/HCPCS: 36591; 80053; 85025; 99214

== ENCOUNTER 2025-03-20 12:00 | Oncology outpatient (recurring) (ONCR) | payer OTHER, SELFPAY ==
--- NOTE | 2025-03-08 15:04 | N.ONRAD NP_ITS ---
Radiation Oncology New Patient Visit Patient: Brayan Wheeler MR#: [id number] : 1945 Age: 79 Sex: Male Dictated by: Paul Pozo DO/THIAGO Date of Service: 03/08/2025 Referring Physician(s) : Dr. KENDRICK BENEDICT Diagnosis: C50.121 - malignant neoplasm of central portion of right male breast, Diagnosed 01/16/2025 (active), C77.3 - secondary and unspecified malignant neoplasm of axilla and upper limb lymph nodes, Diagnosed 01/16/2025 (active) and C34.10 - malignant neoplasm of upper lobe, unspecified bronchus or lung, Diagnosed 03/07/2022 (active), stage IIIA, [id number]. RT BREAST CENTRAL MD-IDC, 2.7CM , -DCIS, INV ERIK DEEP 2.9MM, LN 1/1 LN+, 3.25MM, +KEON > 2MM, ER100/WV 90 +, H2N-, ,STROKE IN THE LAST YEAR + THAT LIMITS ROM RUE, PRIOR XRT MAULIK OF 6000cGy/30FX WITH WEEKLY CARBO/TAXOL COMPLETING THIS ON 05/30/2022, SIM NOTED NO ABLITY TO RAISE RUE TO TREATMENT POSITION STAGE: [id number] RT BREAST & [id number] MAULIK 2021 Icd-10: BREAST C50.121, C77.3 & LUNG C34.12 Radiotherapy to date: Summary > Yes PRIOR radiation therapy. 6000cGy/30 with Carbo/Taxol completing this on 05/30/2022 Current Medications: acetaminophen 650 mg (2 x 325 mg) PO Q6H PRN CURRENT HISTORY: This is a pleasant 79-year-old male with past history of PD ADENOCARCINOMA of the MAULIK having been treated in 2021 with XRT 6000 cGy in 30 fractions along with weekly CarboTaxol completing all this on 05/30/2022. After that he had a right sided stroke, NOW with minimal use of the RUE. Patient noticed a mass in the right breast in mid winter 2024. Screening mammogram on 12/15/2024 noted central right sided mass. Diagnostic mammogram on 01/09/2025 showed a 2.4 cm irregularly hyperdense mass with associated distortion and internal microcalcifications. BREAST US on 01/09/2025 showed a hypoechoic irregularly shaped new mass with angular and indistinct margins measuring 2.4 x 2.3 x 1.5 cm with minimal increased vascularity and mild posterior acoustic shadowing. The right axilla showed benign appearing lymph nodes. BX of the right sided mass on 01/16/2025 returned MD-IDC. Patient underwent Simple Mastectomy and SLN on 01/31/2025 which returned MD-IDC measuring 2.7 cm, -DCIS, -CLSI, and Invasive margin-Deep 2.9 mm, LN 10/05 measuring 3.25 mm with + KEON> 2 mm, ER-100/WV-90 and H2N-,VERY POOR ROM RUE, TESTED SIM SHOWS NO ABILITY TO ADEQUATELY RAISE RUE TO A TREATMENT POSITION. aspirin 81 mg PO DAILY atorvastatin 40 mg PO DAILY coenzyme Q10 100 mg PO DAILY docusate sodium 100 mg PO BID doxycycline hyclate mg PO ferrous sulfate 325 mg PO BID folic acid 0.4 mg PO DAILY guaifenesin ER (Mucinex) 600 mg PO BID PRN lisinopril 5 mg PO BID multivitamin 1 tab PO DAILY pantoprazole 20 mg PO BID thiamine HCl (vitamin B1) 100 mg PO DAILY Allergies: No Known Allergies Medical History: Hypertension. No history of collagen vascular disease. Pneumothorax Non-small cell lung cancer Dementia CVA (cerebral vascular accident) Occlusion and stenosis of unspecified carotid artery Personal history of colonic polyps Hypertension Surgical History: History of reduction of closed fracture left heel Family History: Father has experienced diabetes. Mother has experienced heart attack. Father Diabetes Denies family history of CAD (coronary artery disease) Clotting disorder Dementia Hyperlipidemia Psychiatric illness Chronic kidney disease (CKD) Suicide Anesthesia complication Bleeding disorder Lung disease Cancer Hypertension Stroke Social History: Last screened on 04/02/2022 - Current every day smoker 0.5 packs/day. Last screened on 04/02/2022 - Drinks occasionally. Patient indicated use of the following products: beer and cigarettes. Current Complaints / Review of Systems: NOTED ABOVE. Vital Signs: Performed on 03/08/2025 1:16 PM BMI - 21.2 kg/m2, Height - 71 in, Weight - 152 lbs, Temperature - 96.8 f, Pulse - 75 /min, Respiration - 18 /min, O2 Sat - 97 %, Pain - 0, Fatigue - 0 and BP - 121/ 68 mm(hg). Physical Exam: Decreased expressive abilities secondary to previous stroke. Extremely limited RUE ROM. Patient on home O2. Cannot raise himself from a chair. He has a lift belt in place. dropped him yesterday because of an abrasion over the right eye Performance Status: KPS 60 Pathology: As noted above lab: Imaging: See HPI Impression: C50.121 - malignant neoplasm of central portion of right male breast, Diagnosed 01/16/2025 (active), C77.3 - secondary and unspecified malignant neoplasm of axilla and upper limb lymph nodes, Diagnosed 01/16/2025 (active) and C34.10 - malignant neoplasm of upper lobe, unspecified bronchus or lung, Diagnosed 03/07/2022 (active), stage IIIA, H1mV3T9. RT BREAST CENTRAL MD-IDC, 2.7CM , -DCIS, INV ERIK DEEP 2.9MM, LN 1/1 LN+, 3.25MM, +KEON > 2MM, ER100/WV 90 +, H2N-, ,STROKE IN THE LAST YEAR + THAT LIMITS ROM RUE, PRIOR XRT MAULIK OF 6000cGy/30FX WITH WEEKLY CARBO/TAXOL COMPLETING THIS ON 05/30/2022, SIM NOTED NO ABLITY TO RAISE RUE TO TREATMENT POSITION STAGE: [id number] RT BREAST & [id number] MAULIK 2021 Icd-10: BREAST C50.121, C77.3 & LUNG C34.12 Plan: Options were discussed with the patient, , daughter. Questions answered. PET results discussed with the family. They have raised question of the prostate uptake. Family and patient are to see medical oncology tomorrow. They are going to ask him possibly for PSA. Patient cannot be appropriately treated to the right axilla. We would recommend hormonal therapy and see if metastatic disease surfaces and then treat accordingly. We will see him in the future if specifically requested. Signed by: 03/08/2025 3:02:27 PM <<Signature on File>> Time spent with patient: 75 MINUTES CPT Code: CPT Code:
--- NOTE | 2025-03-20 12:00 | CTR_ITS ---
PROCEDURE INFORMATION: Exam: CT Chest With Contrast; Diagnostic Exam date and time: 03/20/2025 1:12 PM Age: 79 years old Clinical indication: Condition or disease; Other: Lung cancer; Prior surgery; Surgery date: 6+ months; Surgery type: Port, lung; Additional info: Dr. Del Dubon would like scan done 02/06/25 as patient appointment TECHNIQUE: Imaging protocol: Diagnostic computed tomography of the chest with contrast. Radiation optimization: All CT scans at this facility use at least one of these dose optimization techniques: automated exposure control; mA and/or kV adjustment per patient size (includes targeted exams where dose is matched to clinical indication); or iterative reconstruction. Contrast material: OMNI 350; Contrast volume: 100 ml; Contrast route: INTRAVENOUS (IV); COMPARISON: PT PET skull to thigh [id number] 03/07/2025 9:11 AM RADIATION DOSE METRICS: Total DLP (mGy-cm): 726.51 FINDINGS: Tubes, catheters and devices: A right-sided VAD is in good position with the catheter tip in the lower SVC. Lungs: There is a 2 cm focus of pleural-based subsolid density involving the lateral aspect of the left lung apex. Both lungs demonstrate diffuse chronic interstitial coarsening. Bronchial wall thickening is noted bilaterally. Pleural spaces: Unremarkable. No pneumothorax. No pleural effusion. Heart: Mild cardiomegaly is noted. Lymph nodes: Unremarkable. No enlarged lymph nodes. Vasculature: Unremarkable. No aortic aneurysm. Bones/joints: Unremarkable. No acute fracture. Soft tissues: Unremarkable. PROCEDURE INFORMATION: Exam: CT Abdomen And Pelvis With Contrast Exam date and time: 03/20/2025 1:12 PM Age: 79 years old Clinical indication: Condition or disease; Other: Lung cancer; Prior surgery; Surgery date: 6+ months; Surgery type: Port, lung; Additional info: Dr. Del Dubon would like scan done 02/06/25 as patient appointment TECHNIQUE: Imaging protocol: Computed tomography of the abdomen and pelvis with contrast. Radiation optimization: All CT scans at this facility use at least one of these dose optimization techniques: automated exposure control; mA and/or kV adjustment per patient size (includes targeted exams where dose is matched to clinical indication); or iterative reconstruction. Contrast material: OMNI 350; Contrast volume: 100 ml; Contrast route: INTRAVENOUS (IV); COMPARISON: PT PET skull to thigh [id number] 03/07/2025 9:11 AM RADIATION DOSE METRICS: Total DLP (mGy-cm): 726.51 FINDINGS: Lungs: Lung bases are clear. No pleural effusion. Liver: Normal. No mass. Gallbladder and biliary ducts: Normal. No calcified stones. No ductal dilation. Pancreas: Normal. No ductal dilation. Spleen: Normal. No splenomegaly. Adrenal glands: Normal. No mass. Kidneys and ureters: A 4.3 cm simple cyst involves the right kidney. Multiple tiny simple cysts involve the left kidney. Stomach and bowel: Multiple diverticula involve the sigmoid colon. There is no sign of diverticulitis. Appendix: No evidence of appendicitis. Intraperitoneal space: Unremarkable. No free air. No significant fluid collection. Vasculature: Unremarkable. No abdominal aortic aneurysm. Lymph nodes: Unremarkable. No enlarged lymph nodes. Urinary bladder: Unremarkable as visualized. Reproductive: The prostate gland is abnormally enlarged. Bones/joints: Unremarkable. No acute fracture. Soft tissues: Unremarkable. CT/CT chest abdpel w/*[id number] IMPRESSION: 1. No evidence of interval disease progression 2. Stable pleural-based density in the left upper lobe 3. Mild cardiomegaly with chronic lung changes again noted IMPRESSION: 1. There is no evidence of active neoplastic disease. 2. A benign renal cyst or cysts have been detected. No further follow-up imaging is required. 3. Sigmoid diverticulosis 4. Prostate enlargement COMMENTS: Consistent with the [employer]'s Incidental Findings Committee white paper (J Am Ariella Radiol 2018): Any incidental renal lesion less than 1 cm or classified as too small to characterize, or any incidental cystic renal lesion characterized as simple-appearing, is likely benign. No follow-up imaging is recommended for these lesions per consensus recommendations based on imaging criteria.
[2025-03-20 13:19] LABS: Blood Urea Nitrogen 17 mg/dL (8-23)
[2025-03-20] MEDS: iohexol 350 mg/mL 500 mL Btl (per mL) IV (13:20)
[2025-03-20] MEDS: iohexol 350 mg/mL 500 mL Btl (per mL) PO (13:20)
== END 2025-04-03 23:59 | disposition home or self-care (01) ==
LOC: ONCMED 03-21 09:23
PROVIDERS: PCP Family Medicine; Visit Provider Internal Medicine
DX: C34.10 Malignant neoplasm of upper lobe, unspecified bronchus or lung; N28.1 Cyst of kidney, acquired; K57.30 Diverticulosis of large intestine without perforation or abscess without bleeding; N40.0 Benign prostatic hyperplasia without lower urinary tract symptoms; Z96.89 Presence of other specified functional implants; R91.8 Other nonspecific abnormal finding of lung field; I51.7 Cardiomegaly; Z53.9 Procedure and treatment not carried out, unspecified reason
CPT/HCPCS: 11721; 71260; 74177; 82565; 84520; 99215

== ENCOUNTER 2025-04-06 14:39 | Oncology outpatient (recurring) (ONCR) | payer OTHER, SELFPAY ==
[2025-04-06 15:19] LABS: Hematocrit 39.6 % (37-53); Hemoglobin 12.60 g/dL (11.27-16.99); Mean Corpuscular HGB Conc 31.8 g/dL (30-55); Mean Corpuscular Hemoglobin 30.4 pg (27-33); Mean Corpuscular Volume 95.4 fl (82-101); Nucleated Red Blood Cells % 0 %; Platelet Count 310 10^3/cmm (157-399); Red Blood Count 4.15 10^6/uL (3.85-5.65); White Blood Count 8.62 10^3/uL (3.29-11.43)
[2025-04-06 15:32] LABS: Alanine Aminotransferase 17 U/L (0-41); Albumin Level 3.7 g/dL (3.5-5.2); Alkaline Phosphatase 96 U/L (40-130); Anion Gap 15.5 (5-19); Aspartate Amino Transferase 15 U/L (0-40); Blood Urea Nitrogen 24 mg/dL (8-23); Calcium 9.0 mg/dL (8.5-10.5); Carbon Dioxide 22 mmol/L (22-29); Chloride 106 mmol/L (98-107); Creatinine Clr Calc Pharmacy 73.6558; Globulin 3.1 g/dL (1.3-4.6); Glucose 93 mg/dL (65-115); Osmolality Calculated 292 mOsm/kg (285-295); Potassium 4.5 mmol/L (3.5-5.1); Sodium 139 mmol/L (136-145); Total Protein 6.8 g/dL (6.6-8.7)
== END 2025-05-04 23:59 | disposition home or self-care (01) ==
PROVIDERS: PCP Family Medicine; Visit Provider Internal Medicine
DX: C50.921 Malignant neoplasm of unspecified site of right male breast (principal); I69.851 Hemiplegia and hemiparesis following other cerebrovascular disease affecting right dominant side; Z85.118 Personal history of other malignant neoplasm of bronchus and lung; Z87.891 Personal history of nicotine dependence; Z95.828 Presence of other vascular implants and grafts; Z90.11 Acquired absence of right breast and nipple; Z92.21 Personal history of antineoplastic chemotherapy; Z92.3 Personal history of irradiation
CPT/HCPCS: 36591; 80053; 83615; 85025; 85651; 99214

== ENCOUNTER 2025-06-01 13:13 | Oncology outpatient (recurring) (ONCR) | payer OTHER, SELFPAY ==
[2025-06-01 13:51] LABS: Hematocrit 47.7 % (37-53); Hemoglobin 14.40 g/dL (11.27-16.99); Mean Corpuscular HGB Conc 30.2 g/dL (30-55); Mean Corpuscular Hemoglobin 31.2 pg (27-33); Mean Corpuscular Volume 103.2 fl (82-101); Nucleated Red Blood Cells % 0 %; Platelet Count 283 10^3/cmm (157-399); Red Blood Count 4.62 10^6/uL (3.85-5.65); White Blood Count 7.37 10^3/uL (3.29-11.43)
[2025-06-01 14:08] LABS: Alanine Aminotransferase 15 U/L (0-41); Albumin Level 3.7 g/dL (3.5-5.2); Alkaline Phosphatase 90 U/L (40-130); Anion Gap 16.1 (5-19); Aspartate Amino Transferase 13 U/L (0-40); Blood Urea Nitrogen 22 mg/dL (8-23); Calcium 9.1 mg/dL (8.5-10.5); Carbon Dioxide 23 mmol/L (22-29); Chloride 103 mmol/L (98-107); Creatinine Clr Calc Pharmacy 72.5330; Globulin 3.3 g/dL (1.3-4.6); Glucose 96 mg/dL (65-115); Osmolality Calculated 289 mOsm/kg (285-295); Potassium 4.1 mmol/L (3.5-5.1); Sodium 138 mmol/L (136-145); Total Protein 7.0 g/dL (6.6-8.7)
== END 2025-06-04 23:59 | disposition home or self-care (01) ==
PROVIDERS: PCP Family Medicine; Visit Provider Internal Medicine
DX: Z08 Encounter for follow-up examination after completed treatment for malignant neoplasm (principal); Z85.3 Personal history of malignant neoplasm of breast; Z85.118 Personal history of other malignant neoplasm of bronchus and lung; I69.851 Hemiplegia and hemiparesis following other cerebrovascular disease affecting right dominant side; Z87.891 Personal history of nicotine dependence; Z95.828 Presence of other vascular implants and grafts; Z90.11 Acquired absence of right breast and nipple; Z92.21 Personal history of antineoplastic chemotherapy; Z92.3 Personal history of irradiation
CPT/HCPCS: 36591; 80053; 83615; 85025; 99213

== ENCOUNTER → 2025-06-08 09:52 | Outpatient (BNVA) | payer OTHER, SELFPAY | PROVIDERS: PCP Family Medicine; Visit Provider Podiatrist Foot & Ankle Surgery | DX: I73.9 Peripheral vascular disease, unspecified (principal); L60.3 Nail dystrophy; M20.11 Hallux valgus (acquired), right foot; M20.41 Other hammer toe(s) (acquired), right foot; M20.42 Other hammer toe(s) (acquired), left foot | CPT/HCPCS: 11721; 99213 ==

== ENCOUNTER 2025-08-30 12:59 | Oncology outpatient (recurring) (ONCR) | payer OTHER, SELFPAY ==
[2025-08-30 13:16] LABS: Hematocrit 43.9 % (37-53); Hemoglobin 14.20 g/dL (11.27-16.99); Mean Corpuscular HGB Conc 32.3 g/dL (30-55); Mean Corpuscular Hemoglobin 29.4 pg (27-33); Mean Corpuscular Volume 90.9 fl (82-101); Nucleated Red Blood Cells % 0 %; Platelet Count 270 10^3/cmm (157-399); Red Blood Count 4.83 10^6/uL (3.85-5.65); White Blood Count 6.42 10^3/uL (3.29-11.43)
[2025-08-30 13:48] LABS: Alanine Aminotransferase 20 U/L (0-41); Albumin Level 3.8 g/dL (3.5-5.2); Alkaline Phosphatase 91 U/L (40-130); Anion Gap 15.4 (5-19); Aspartate Amino Transferase 16 U/L (0-40); Blood Urea Nitrogen 17 mg/dL (8-23); Calcium 9.1 mg/dL (8.5-10.5); Carbon Dioxide 24 mmol/L (22-29); Chloride 101 mmol/L (98-107); Globulin 3.2 g/dL (1.3-4.6); Glucose 100 mg/dL (65-115); Osmolality Calculated 284 mOsm/kg (285-295); Potassium 4.4 mmol/L (3.5-5.1); Prostate Specific Antigen 3.900 ng/mL (0-4); Sodium 136 mmol/L (136-145); Total Protein 7.0 g/dL (6.6-8.7)
== END 2025-09-03 23:59 | disposition home or self-care (01) ==
PROVIDERS: PCP Family Medicine; Visit Provider Internal Medicine
DX: Z08 Encounter for follow-up examination after completed treatment for malignant neoplasm (principal); Z85.118 Personal history of other malignant neoplasm of bronchus and lung; Z85.3 Personal history of malignant neoplasm of breast; Z87.891 Personal history of nicotine dependence; Z95.828 Presence of other vascular implants and grafts; Z90.11 Acquired absence of right breast and nipple; I69.351 Hemiplegia and hemiparesis following cerebral infarction affecting right dominant side
CPT/HCPCS: 36591; 80053; 83615; 84153; 85025; 99213